=== PATIENT | female | born 1940 | race Caucasian/White ===

== ENCOUNTER 2016-06-08 11:01 | Inpatient (IN) | payer MEDICARE, OTHER ==
[~2016-06-08] VITALS: Ht 160 cm; Wt 78.0 kg
[~2016-06-08 11:01] MED LIST: ACET1TAB40 PO; AMLO-147 PO; ASPI-664 PO; CHOL2000 PO; DIAZ5TAB4 PO; EDOX30TA PO; GABA800T PO; IPRA4AER INHALATION; ISOS30TA18 PO; METO-448 PO; NITR0.4T6 SL; PANT40TA4 PO; POTA20TA96 PO; QUET100T32 PO; ZOLP10TA5 PO
--- NOTE | 2016-06-08 11:31 | ERA ---
ER Documentation Chief Complaint Date/Time DATE: 06/08/16 TIME: 11:30 Chief Complaint fever yesterday and sob today HPI The patient is a 76-year-old female, presenting to the ER because of fever yesterday, shortness of breath today. She had the flu last week. Her O2 sat today was 82-83% on 3-1/2 liter. She does not have any chills, nasal congestion. She has chronic cough, denies neck pain, chest pain, diaphoresis, abdominal pain, vomiting, dysuria, diarrhea. She smokes a few cigarettes a day , uses 3-1/2 L nasal cannula continuously Past medical history: Hypertension, diabetes mellitus, anemia, hypothyroidism, depression, dementia, COPD, psoriasis, dyslipidemia, GERD Past surgical history: Cholecystectomy, appendectomy, thyroidectomy ROS All systems reviewed and are negative except as per history of present illness. Medications Home Meds Reported Medications Pregabalin* (Lyrica*) 75 Mg Capsule, 75 MG PO DAILY, CAP 06/08/16 Ibuprofen* (Motrin*) 600 Mg Tab, 600 MG PO TID, TAB 06/08/16 Levothyroxine Sodium* (Levoxyl*) 125 Mcg Tablet, 125 MCG PO BEFORE BREAKFAST, # 30 TAB 06/08/16 Cholecalciferol* (Vitamin D3*) 2,000 Unit Cap, 2000 UNIT PO DAILY, CAP 12/09/15 Edoxaban Tosylate (Savaysa) 30 Mg Tablet, 30 MG PO DAILY, TAB 12/09/15 Albuterol/Ipratropium* (Combivent Respimat*) 20-100 Mcg/Inh - 4 Gm Aer.w.adap, 1 PUFF INHALATION QID, #1 INHALER 12/09/15 Amlodipine Besylate* (Amlodipine Besylate*) 10 Mg Tablet, 10 MG PO DAILY, TAB 11/19/14 Diazepam* (Diazepam*) 5 Mg Tablet, 5 MG PO BID Y for INSOMNIA, TAB 11/19/14 Zolpidem Tartrate* (Zolpidem Tartrate*) 10 Mg Tablet, 10 MG PO HS Y for INSOMNIA , TAB 11/19/14 Quetiapine Fumarate* (Quetiapine Fumarate*) 100 Mg Tablet, 100 MG PO HS, TAB 11/19/14 Metoprolol Tartrate* (Lopressor*) 25 Mg Tab, 25 MG PO BID, TAB 11/19/14 Pantoprazole* (Pantoprazole*) 40 Mg Tablet.dr, 40 MG PO AC BREAKFAST, TAB 11/19/14 Nitroglycerin* (Nitroglycerin* SL) 0.4 Mg Tab.subl, 0.4 MG SL Q5MIN Y for CHEST PAIN, BOTTLE 11/19/14 Isosorbide Dinitrate* (Isosorbide Dinitrate*) 30 Mg Tablet, 30 MG PO DAILY, TAB 08/16/14 Acetaminophen-Codeine* (Acetaminophen-Cod #3*) 300-30 Mg Tab, 1 TAB PO Q8 Y for PAIN, TAB 06/24/14 Gabapentin* (Neurontin*) 800 Mg Tablet, 800 MG PO QID, TAB 06/24/14 Aspirin* (Aspirin* (EC)) 81 Mg Tablet.dr, 81 MG PO DAILY, TAB 06/24/14 Discontinued Reported Medications Potassium Chloride* (Potassium Chloride*) 20 Meq Tablet.er, 20 MEQ PO BID, TAB.SA 11/19/14 Allergies Allergies: Coded Allergies: Iodinated Contrast Media - Oral and (Verified Allergy, Mild, 06/08/16) PMhx/Soc History of Surgery: Yes (Cholecyatectomy, appendectomy, thyroid surgery) Anesthesia Reaction: No Hx Neurological Disorder: No Hx Respiratory Disorders: Yes (COPD, asthma) Hx Cardiac Disorders: Yes (HTN) Hx Psychiatric Problems: No Hx Miscellaneous Medical Probl: Yes (insomia) Hx Alcohol Use: No Hx Substance Use: No Hx Tobacco Use: Yes Physical Exam Vitals Vital Signs Date Time Temp Pulse Resp B/P Pulse Ox O2 Delivery O2 Flow Rate FiO2 06/08/16 14:50 99.6 91 17 112/71 95 Nasal Cannula 2.0 06/08/16 12:54 101.3 103 29 132/73 94 Nasal Cannula 2.0 06/08/16 11:45 Nasal Cannula 06/08/16 11:42 Nasal Cannula 2 06/08/16 11:07 101.7 115 24 136/80 87 Physical Exam Const: No acute distress. Head: Atraumatic. Eyes: Normal Conjunctiva. ENT: Normal External Ears, Nose and Mouth. Neck: Full range of motion. No meningismus. Resp: Decreased breath sounds and bilateral expiratory wheezes, tachypnea Cardio: Regular rate and rhythm, no murmurs. Abd: Soft, non distended, normal bowel sounds, non tender. Skin: No petechiae or rashes. Back: No midline or flank tenderness. Ext: No cyanosis, or edema. Neur: Awake and alert. No focal deficit Psych: Normal Mood and Affect. Result Diagram: 06/08/16 1150 06/08/16 1150 Results 24 hrs Laboratory Tests Test 06/08/16 11:46 06/08/16 11:50 06/08/16 12:50 06/08/16 14:20 Arterial Blood HCO3 24.5mmol/L Arterial Blood Base Excess 1.1mmol/L Arterial Blood Oxygen Saturation 87.5mmHG Vikram Test ACCEPTAB Arterial Blood Gas Puncture Site Right Radial Arterial Blood Carboxyhemoglobin 0.6% Arterial Blood Date Drawn 06/08/2016 12:08:00 PM Arterial Blood Methemoglobin 0.1% Arterial Blood pCO2 (Temp correct) 35.3mmhg Arterial Blood pH (Temp corrected) 7.459 Arterial Blood pO2 (Temp corrected) 50.5mmHG Blood Gas A-a O2 Differential 143.6mmHg Blood Gas Actual Respiration Rate 26 Blood Gas Critical Value Read Back DR. ZECHARIAH CARVER Blood Gas Modality NASAL CANNULA Blood Gas Notified Time 06/08/2016 12:22:00 PM Blood Gas Notified Whom SOBEIDA VÁZQUEZ Blood Gas Specimen Source Blood arterial Blood Gas Temperature 37.0C FiO2 33.0% Oxyhemoglobin Percent 86.9% Total Hemoglobin 14.0g/dl Activated Partial Thromboplast Time 34.8Sec Alanine Aminotransferase (ALT/SGPT) 44IU/L Albumin 4.5g/dl Albumin/Globulin Ratio 0.90 Alkaline Phosphatase 81IU/L Anion Gap 21 Aspartate Amino Transf (AST/SGOT) 31IU/L Basophils # 0.010^3/ul Basophils % 0.0% Blood Urea Nitrogen 25mg/dl Calcium Level 8.3mg/dl Carbon Dioxide Level 28mmol/L Chloride Level 99mmol/L Creatinine 1.25mg/dl Direct Bilirubin 0.00mg/dl Eosinophils # 0.110^3/ul Eosinophils % 0.6% Globulin 5.00g/dl Glucose Level 148mg/dl Hematocrit 40.5% Hemoglobin 13.8g/dl INR International Normalized Ratio 1.16 Indirect Bilirubin 0.6mg/dl Lymphocytes # 1.610^3/ul Lymphocytes % 9.1% Mean Corpuscular Hemoglobin 32.8pg Mean Corpuscular Hemoglobin Concent 34.1g/dl Mean Corpuscular Volume 96.2fl Mean Platelet Volume 9.8fl Monocytes # 0.310^3/ul Monocytes % 1.8% Neutrophils # 15.610^3/ul Neutrophils % 88.5% Nucleated Red Blood Cells # 0.010^3/ul Nucleated Red Blood Cells % 0.0/100WBC Platelet Count 51986^3/UL Potassium Level 4.1mmol/L Prothrombin Time 14.8Sec Prothrombin Time Ratio 1.2 Red Blood Count 4.2110^6/ul Red Cell Distribution Width 13.4% Sodium Level 144mmol/L Total Bilirubin 0.6mg/dl Total Protein 9.5g/dl Troponin I < 0.012ng/ml White Blood Count 17.710^3/ul Lactic Acid Level 1.6mmol/L 2.1mmol/L Current Medications Medications (Trade) Dose Ordered Sig/Alonso Route PRN Reason Start Time Stop Time Status Last Admin Dose Admin Acetaminophen (Tylenol Tab) 650 mg ONCE STAT PO 06/08/16 11:37 06/08/16 11:40 DC 06/08/16 11:50 Levalbuterol (Xopenex Neb) 1.25 mg ONCE ONCE HHN 06/08/16 12:00 06/08/16 12:01 DC 06/08/16 11:44 Ipratropium [place] (Atrovent 0.02% (Neb)) 0.5 mg ONCE ONCE HHN 06/08/16 12:00 06/08/16 12:01 DC 06/08/16 11:44 Methylprednisolone Sodium Succinate (Solu-Medrol) 125 mg ONCE ONCE IV 06/08/16 12:00 06/08/16 12:01 DC 06/08/16 11:50 Ibuprofen 600 mg 600 mg ONCE ONCE PO 06/08/16 13:00 06/08/16 13:01 DC 06/08/16 13:09 Vancomycin HCl 1.25 gm/Sodium Chloride 250 ml @ 125 mls/hr ONCE ONCE IVPB 06/08/16 13:00 06/08/16 14:59 DC 06/08/16 14:04 Cefepime HCl (Maxipime 1gm/50 ml (Pmx)) 50 ml @ 100 mls/hr ONCE ONCE IVPB 06/08/16 13:00 06/08/16 13:29 DC 06/08/16 13:09 Acetaminophen/ Codeine Phosphate (Tylenol No.3) 1 tab Q8 PRN PO PAIN 06/08/16 16:00 Amlodipine Besylate (Norvasc) 10 mg DAILY PO 06/09/16 09:00 Aspirin (Halfprin) 81 mg DAILY PO 06/09/16 09:00 Cholecalciferol (Vitamin D) 2,000 unit DAILY PO 06/09/16 09:00 Diazepam (Valium) 5 mg BID PRN PO INSOMNIA 06/08/16 16:00 Gabapentin (Neurontin) 800 mg QID PO 06/08/16 17:00 Isosorbide Dinitrate (Isordil) 30 mg DAILY PO 06/09/16 09:00 UNV Levothyroxine Sodium (Synthroid) 125 mcg BEFORE BREAKFAST PO 06/09/16 07:00 UNV Metoprolol Tartrate (Lopressor) 25 mg BID PO 06/08/16 21:00 UNV Nitroglycerin (Nitroglycerin (Sl Tab) 0.4 Mg) 0.4 tab [id number] PRN SL CHEST PAIN 06/08/16 16:00 Pantoprazole (Protonix Tab) 40 mg AC BREAKFAST PO 06/09/16 07:00 UNV Pregabalin (Lyrica) 75 mg DAILY PO 06/09/16 09:00 UNV Quetiapine Fumarate (Seroquel) 100 mg HS PO 06/08/16 21:00 UNV Zolpidem Tartrate 10 mg 10 mg HS PRN PO INSOMNIA 06/08/16 16:00 Sodium Chloride (NS) 1,000 ml @ 50 mls/hr Q20H IV 06/08/16 15:38 IV Flush (NS 3 ml) 3 ml PER PROTOCOL IV 06/08/16 16:00 Ondansetron HCl (Zofran Inj) 4 mg Q6H PRN IV NAUSEA AND/OR VOMITING 06/08/16 16:00 Docusate Sodium (Colace) 100 mg Q12H PRN PO CONSTIPATION 06/08/16 16:00 Magnesium Hydroxide (Milk Of Mag) 30 ml DAILY PRN PO CONSTIPATION 06/08/16 16:00 Pantoprazole (Protonix Iv) 40 mg DAILY@06 IV 06/09/16 06:00 UNV Enoxaparin Sodium 40 mg 40 mg DAILY SC 06/09/16 09:00 UNV Piperacillin Sod/ Tazobactam Sod (Zosyn 3.375gm/ 100 ml (Pmx)) 100 ml @ 200 mls/hr TID IVPB 06/08/16 21:00 UNV Albuterol/ Ipratropium (Duoneb) 3 ml Q6H RESP THERAPY HHN 06/08/16 18:00 Procedures/[place] [id number] Radiology Main Line: [phone] DIAGNOSTIC IMAGING REPORT Patient: WYATT CROW : 1940 Age: 76 Sex: F MR #: [id number] DOS: 06/08/16 1137 Ordering MD: ZECHARIAH CARVER MD Location: E/R Room/Bed: PROCEDURE: XR Chest. CLINICAL INDICATION: Sepsis TECHNIQUE: Chest AP portable. COMPARISON: 12/09/2015 FINDINGS: The mediastinal structures are unremarkable. There is calcification of the thoracic aorta (consistent with atherosclerosis). The heart is normal in size and configuration. The pulmonary vascularity is normal. There is a L U L patchy consolidation. The pleural spaces are unremarkable. There are senescent changes of the axial skeleton. IMPRESSION: L U L patchy consolidation. RPTAT: HGDB .Hunter Rao MD, Date Time Electronically viewed and signed by .Hunter Rao MD, on 06/08/2016 12:43 .B/ CC: ZECHARIAH CARVER MD MEDICAL MAKING DECISION: The patient is 76-year-old female, presenting with acute respiratory failure, acute pneumonia. She was treated with Tylenol and Motrin for fever Xopenex 1.25 mg and Ativan 0.5 mg nebulizer and Solu-Medrol 125 mg IV for wheezing, vancomycin IV, Maxipime IV for pneumonia with good response. ABG on 33%, pH 7.45, PCO2 35, PO2 50. The differential diagnoses considered include but are not limited to asthma, COPD, pneumonia, pulmonary embolus, pleural effusion, congestive heart failure. Critical Care: Time: 35 minutes excluding all billable procedures. Treatments/Evaluations: Close monitoring and treatment of unstable vital signs, cardiorespiratory, and neurologic status, while maintaining tight balance of fluid, respiratory, and cardiac interventions. Departure Diagnosis: Primary Impression: Acute respiratory failure with hypoxemia Additional Impression: Pneumonia Condition: Stable Comments I discussed the findings with the patient. I discussed the patient with his physician Dr. Waters who was on-call for her physician Dr. Camargo who was made aware of the lab, the treatment, the patient condition. The patient is admitted to telemetry at 1:10 PM ZECHARIAH CARVER MD Jun 08, 2016 11:31
[2016-06-08] MEDS ORDERED: ACETAMINOPHEN 325 MG TAB PO STA (11:37)
[2016-06-08] MEDS ORDERED: METHYLPREDNISOLONE 125 MG INJ IV ONE (12:00)
[2016-06-08] MEDS ORDERED: IPRATROPIUM (NEB) 0.5 MG/2.5 ML AMP HHN ONE (12:00)
[2016-06-08] MEDS ORDERED: LEVALBUTEROL (NEB) 1.25 MG/0.5 ML AMP HHN ONE (12:00)
[2016-06-08 12:19] LABS: EOSINOPHILS # 0.1 10^3/ul (0.0-0.5); EOSINOPHILS % 0.6 % (0.0-7.0); HEMATOCRIT 40.5 % (37.0-47.0); HEMOGLOBIN 13.8 g/dl (12.0-16.0); LYMPHOCYTES # 1.6 10^3/ul (0.8-2.9); LYMPHOCYTES % 9.1 % (15.0-51.0); MEAN CORPUSCULAR HEMOGLOBIN 32.8 pg (29.0-33.0); MEAN CORPUSCULAR HGB CONC 34.1 g/dl (32.0-37.0); MEAN CORPUSCULAR VOLUME 96.2 fl (82.0-101.0); MEAN PLATELET VOLUME 9.8 fl (7.4-10.4); MONOCYTE # 0.3 10^3/ul (0.3-0.9); MONOCYTES % 1.8 % (0.0-11.0); NEUTROPHIL # 15.6 10^3/ul (1.6-7.5); NEUTROPHILS % 88.5 % (39.0-77.0); PLATELET COUNT 278 10^3/UL (140-440); RED BLOOD COUNT 4.21 10^6/ul (4.20-5.40); RED CELL DISTRIBUTION WIDTH 13.4 % (11.5-14.5); UNCORRECTED WBC 17.7 10^3/ul (4.8-10.8); WHITE BLOOD COUNT 17.7 10^3/ul (4.8-10.8)
[2016-06-08 12:23] LABS: CONDITION 1; LH ANALYZER COMMENTS 1; SUSPECT 1
[2016-06-08 12:24] LABS: AADO2 Arterial 143.6 mmHg (7.0-24.0); Allen Test ACCEPTAB; Arterial Base Excess 1.1 mmol/L (-3.0-3); Arterial COHb 0.6 % (0.0-3.0); Arterial Fraction of Oxyhgb 86.9 % (93.0-99.0); Arterial HCO3 24.5 mmol/L (22.0-26.0); Arterial MetHb 0.1 % (0.0-1.5); MODE NASAL CANNULA
[2016-06-08 12:36] LABS: INR 1.16; PROTIME 14.8 Sec (12.2-14.2); PT RATIO 1.2
[2016-06-08 12:37] LABS: PARTIAL THROMBOPLASTIN TIME 34.8 Sec (25.0-35.0)
[2016-06-08] MEDS ORDERED: LEVO125T71 PO (12:42)
[2016-06-08] MEDS ORDERED: LYR75 PO (12:43)
[2016-06-08] MEDS ORDERED: IBUP-1542 PO (12:43)
--- NOTE | 2016-06-08 12:43 | RADRPT ---
PROCEDURE: XR Chest. CLINICAL INDICATION: Sepsis TECHNIQUE: Chest AP portable. COMPARISON: 12/09/2015 FINDINGS: The mediastinal structures are unremarkable. There is calcification of the thoracic aorta (consiste nt with atherosclerosis). The heart is normal in size and configuration. The pulmonary vascularity i s normal. There is a L U L patchy consolidation. The pleural spaces are unremarkable. There are se nescent changes of the axial skeleton. IMPRESSION: L U L patchy consolidation. RPTAT: HGDB .Hunter Rao MD, MD Date Time Electronically viewed and signed by .Hunter Rao MD, on 06/08/2016 12:43 .B/
[2016-06-08] MEDS ORDERED: IBUPROFEN 600 MG TAB PO ONE (13:00)
[2016-06-08] MEDS ORDERED: CEFEPIME 1GM/50 ML (PMX) 50 ML IVPB ONE (13:00)
[2016-06-08] MEDS ORDERED: VANCOMYCIN 1.25 GM in SOD CHLORIDE 0.9% 250 ML IVPB ONE (13:00)
[2016-06-08 13:20] LABS: ALBUMIN 4.5 g/dl (3.3-4.9); CHLORIDE 99 mmol/L (97-110); POTASSIUM 4.1 mmol/L (3.5-5.1); SODIUM 144 mmol/L (135-144)
[2016-06-08 13:22] LABS: CREATININE 1.25 mg/dl (0.44-1.00)
[2016-06-08 13:23] LABS: ALANINE AMINOTRANSFERASE 44 IU/L (13-69); ALKALINE PHOSPHATASE 81 IU/L (42-121); ANION GAP 21 (8-16); ASPARTATE AMINO TRANSFERASE 31 IU/L (15-46); BILIRUBIN,INDIRECT 0.6 mg/dl (0-1.1); BILIRUBIN,TOTAL 0.6 mg/dl (0.2-1.3); BLOOD UREA NITROGEN 25 mg/dl (7-20); CALCIUM 8.3 mg/dl (8.4-10.2); CARBON DIOXIDE 28 mmol/L (21-31); GLUCOSE 148 mg/dl (70-220); TOTAL PROTEIN 9.5 g/dl (6.1-8.1)
[2016-06-08 13:36] LABS: TROPONIN-I < 0.012 ng/ml (0.00-0.12)
--- NOTE | 2016-06-08 15:28 | QN ---
Documentation Comment [id number] PEYMAN MARINO MD Jun 08, 2016 15:28
[2016-06-08] MEDS ORDERED: ONDANSETRON 4 MG INJ IV PRN (16:00)
[2016-06-08] MEDS ORDERED: DOCUSATE SODIUM 100 MG CAP PO PRN (16:00)
[2016-06-08] MEDS ORDERED: NACL 0.9% 3 ML SYG IV SCH (16:00)
[2016-06-08] MEDS ORDERED: NITROGLYCERIN (SL) 0.4 MG TAB SL PRN (16:00)
[2016-06-08] MEDS ORDERED: MAGNESIUM HYDROXIDE 30ML CUP PO PRN (16:00)
[2016-06-08] MEDS ORDERED: ACETAMINOPHEN/CODEINE #3 TAB PO PRN (16:00)
[2016-06-08] MEDS: SOD CHLORIDE 0.9% 1,000 ML IV SCH (17:07)
[2016-06-08] MEDS: GABAPENTIN 400 MG CAP PO SCH ×2 (17:08→21:06)
[2016-06-08] MEDS: ALBUTEROL/IPRATROPIUM (NEB) 3 ML AMP HHN SCH ×2 (18:13→19:58)
[2016-06-08 18:44] VITALS: TEMP 97.9
[2016-06-08 19:33] VITALS: Ht 160 cm; Wt 78.0 kg
[2016-06-08 20:11] VITALS: PULSE 72
[2016-06-08 20:21] VITALS: BP 124/70; RESP 17
[2016-06-08] MEDS: QUETIAPINE 100 MG TAB PO SCH (21:06)
[2016-06-08] MEDS: PIPER-TAZO 3.375 GM IV (PMX) 100 ML IVPB SCH (21:07)
[2016-06-08] MEDS: METOPROLOL 25 MG TAB PO SCH (21:07)
[2016-06-08] MEDS: ZOLPIDEM 5 MG TAB PO PRN (22:09)
[2016-06-08] MEDS: DIAZEPAM 5 MG TAB PO PRN (22:50)
[2016-06-08 23:20] VITALS: BP 138/75; RESP 17
--- NOTE | 2016-06-08 23:28 | CONS ---
Date/Time of Note Date/Time of Note DATE: 06/08/16 TIME: 23:28 Assessment/Plan Assessment/Plan Chief Complaint/Hosp Course IMPRESSION: LEUKOCYTOSIS PROBABLY REACTIVE REVIEW SMEAR MONITOR BLOOD COUNT CLOSELY ATB-PER PMD ANEMIA COMPENSATED AT PRESENT OBSERVE CLOSELY NO NEEDS FOR TRANSFUSION community-acquired pneumonia. Bronchocentric consolidation, centrilobular nodules, and tree in bud nodularity in the seen throughout the left lung consistent with multifocal bronchiolitis/ bronchopneumonia. There is an associated trace parapneumonic effusion with associated atelectasis ON CT CHEST 7.16 Diabetes mellitus Problems: Consultation Date/Type/Reason Admit Date/Time Jun 08, 2016 at 19:14 Date of Consultation: Jun 08, 2016 Type of Consultation: HEMEONC Reason for Consultation LEUKOCYTOSIS HX ANEMIA Referring Provider: PEYMAN MARINO Hx of Present Illness Patient is a 76-year-old female with a history of UTI, sepsis, pneumonia, diabetes, anemia, history of cholecystectomy, and history of appendectomy. 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 Presented with shortness of breath, fever, cough, and is being admitted for further management. I WAS ASKED TO PROVIDE HEMEONC CONSULT RE LEUKOCYTOSIS AND ANEMIA PAST MEDICAL HISTORY: Positive for COPD, hypertension, diabetes mellitus, abdominal surgery. ALLERGY HISTORY: CONTRAST MEDIA. SOCIAL HISTORY: Negative. Smokes 2 cigarettes a day. MEDICATIONS AT HOME: 1. Albuterol. 2. Combivent. 3. Amlodipine. 4. Aspirin. 5. Vitamin D3. 6. Diazepam. 7. Lovenox. 8. Gabapentin. 9. Ibuprofen. 10. Isosorbide. 11. Levothyroxine. 12. Metoprolol. 13. Nitroglycerin. 14. Protonix. 15. Lyrica. 16. Seroquel. 17. Ambien. REVIEW OF SYSTEMS: HEENT: Unremarkable. RESPIRATORY: Cough, shortness of breath, , labored breathing. ABDOMEN: No distress. EXTREMITIES: Swelling. CENTRAL NERVOUS SYSTEM: Unremarkable. Past Surgical History Past Surgical Hx: appendectomy, cholecystectomy, other Social History Smoking Status: Former smoker Exam/Review of Systems Vital Signs Vitals Vital Signs Date Time Temp Pulse Resp B/P Pulse Ox O2 Delivery O2 Flow Rate FiO2 06/08/16 23:20 98.0 64 17 138/75 93 06/08/16 20:30 5.0 40 06/08/16 19:45 Nasal Cannula Exam PHYSICAL EXAMINATION: GENERAL: The patient is awake, alert. HEAD: Atraumatic, normocephalic. Pupils are equal, reactive to light. NECK: Supple. No JVD. LUNGS: Clear anteriorly with rhonchi in both bases. CARDIOVASCULAR: S1, S2 normal. ABDOMEN: Soft, obese, bowel sounds present, no palpable mass or hepatosplenomegaly. No guarding, rebound tenderness. EXTREMITIES: There is no cyanosis, clubbing, or edema. CENTRAL NERVOUS SYSTEM: The patient is awake, alert, moving both upper and lower extremities. Results Result Diagram: 06/08/16 1150 06/08/16 1150 Results 24 hrs Laboratory Tests Test 06/08/16 11:46 06/08/16 11:50 06/08/16 12:50 06/08/16 14:20 Arterial Blood HCO3 24.5 Arterial Blood Base Excess 1.1 Arterial Blood Oxygen Saturation 87.5 L Vikram Test ACCEPTAB Arterial Blood Gas Puncture Site Right Radial Arterial Blood Carboxyhemoglobin 0.6 Arterial Blood Date Drawn 06/08/2016 12:08:00 PM Arterial Blood Methemoglobin 0.1 Arterial Blood pCO2 (Temp correct) 35.3 Arterial Blood pH (Temp corrected) 7.459 H Arterial Blood pO2 (Temp corrected) 50.5 *L Blood Gas A-a O2 Differential 143.6 H Blood Gas Actual Respiration Rate 26 Blood Gas Critical Value Read Back DR. ZECHARIAH CARVER Blood Gas Modality NASAL CANNULA Blood Gas Notified Time 06/08/2016 12:22:00 PM Blood Gas Notified Whom SOBEIDA VÁZQUEZ Blood Gas Specimen Source Blood arterial Blood Gas Temperature 37.0 FiO2 33.0 Oxyhemoglobin Percent 86.9 L Total Hemoglobin 14.0 Activated Partial Thromboplast Time 34.8 Alanine Aminotransferase (ALT/SGPT) 44 Albumin 4.5 Albumin/Globulin Ratio 0.90 Alkaline Phosphatase 81 Anion Gap 21 H Aspartate Amino Transf (AST/SGOT) 31 Basophils # 0.0 Basophils % 0.0 Blood Urea Nitrogen 25 H Calcium Level 8.3 L Carbon Dioxide Level 28 Chloride Level 99 Creatinine 1.25 H Direct Bilirubin 0.00 Eosinophils # 0.1 Eosinophils % 0.6 Globulin 5.00 H Glucose Level 148 Hematocrit 40.5 # Hemoglobin 13.8 # INR International Normalized Ratio 1.16 Indirect Bilirubin 0.6 Lymphocytes # 1.6 Lymphocytes % 9.1 L Mean Corpuscular Hemoglobin 32.8 Mean Corpuscular Hemoglobin Concent 34.1 Mean Corpuscular Volume 96.2 Mean Platelet Volume 9.8 Monocytes # 0.3 Monocytes % 1.8 Neutrophils # 15.6 H Neutrophils % 88.5 H Nucleated Red Blood Cells # 0.0 Nucleated Red Blood Cells % 0.0 Platelet Count 278 Potassium Level 4.1 Prothrombin Time 14.8 H Prothrombin Time Ratio 1.2 Red Blood Count 4.21 # Red Cell Distribution Width 13.4 Sodium Level 144 Total Bilirubin 0.6 Total Protein 9.5 H Troponin I < 0.012 White Blood Count 17.7 #H Lactic Acid Level 1.6 2.1 Test 06/08/16 19:55 Lactic Acid Level 2.2 Medications Medications Current Medications Acetaminophen/ Codeine Phosphate (Tylenol No.3) 1 tab Q8 PRN PO PAIN; Start at 16:00 Amlodipine Besylate (Norvasc) 10 mg DAILY PO ; Start 06/09/16 at 09:00 Aspirin (Halfprin) 81 mg DAILY PO ; Start 06/09/16 at 09:00 Cholecalciferol (Vitamin D) 2,000 unit DAILY PO ; Start 06/09/16 at 09:00 Diazepam (Valium) 5 mg BID PRN PO INSOMNIA Last administered on 06/08/16 22:50 ; Admin Dose 5 MG; Start 06/08/16 at 16:00 Gabapentin (Neurontin) 800 mg QID PO Last administered on 06/08/16 21:06; Admin Dose 800 MG; Start 06/08/16 at 17:00 Isosorbide Mononitrate (Imdur) 30 mg DAILY PO ; Start 06/09/16 at 09:00 Metoprolol Tartrate (Lopressor) 25 mg BID PO Last administered on 06/08/16 21: 07; Admin Dose 25 MG; Start 06/08/16 at 21:00 Nitroglycerin (Nitroglycerin (Sl Tab) 0.4 Mg) 0.4 tab [id number] PRN SL CHEST PAIN; Start 06/08/16 at 16:00 Pregabalin (Lyrica) 75 mg DAILY PO ; Start 06/09/16 at 09:00 Quetiapine Fumarate (Seroquel) 100 mg HS PO Last administered on 06/08/16 21: 06; Admin Dose 100 MG; Start 06/08/16 at 21:00 Zolpidem Tartrate 10 mg 10 mg HS PRN PO INSOMNIA Last administered on 22:09; Admin Dose 10 MG; Start 06/08/16 at 16:00 Sodium Chloride (NS) 1,000 ml @ 50 mls/hr Q20H IV Last administered on 17:07; Admin Dose 50 MLS/HR; Start 06/08/16 at 15:38 Ondansetron HCl (Zofran Inj) 4 mg Q6H PRN IV NAUSEA AND/OR VOMITING; Start at 16:00 Docusate Sodium (Colace) 100 mg Q12H PRN PO CONSTIPATION; Start 06/08/16 at 16: 00 Magnesium Hydroxide (Milk Of Mag) 30 ml DAILY PRN PO CONSTIPATION; Start at 16:00 Enoxaparin Sodium 40 mg 40 mg DAILY SC ; Start 06/09/16 at 09:00 Piperacillin Sod/ Tazobactam Sod (Zosyn 3.375gm/ 100 ml (Pmx)) 100 ml @ 200 mls /hr Q8 IVPB Last administered on 06/08/16 21:07; Admin Dose 200 MLS/HR; Start 06/08/16 at 22:00 Influenza Virus Vaccine (Fluzone) 0.5 ml ONCE ONCE IM* ; Start 06/09/16 at 09:00 ; Stop 06/09/16 at 09:01 Procedures Procedures Chest x-ray: Left upper lobe patchy consolidation. NARINDER WALTERS MD Jun 08, 2016 23:28
[2016-06-09] VITALS (11 sets, daily range): BP systolic 105–138; BP diastolic 55–73; PULSE 56–68; RESP 17–20
[2016-06-09] MEDS: ALBUTEROL/IPRATROPIUM (NEB) 3 ML AMP HHN SCH ×4 (02:13→19:55)
[2016-06-09] MEDS ORDERED: PANTOPRAZOLE 40 MG INJ IV SCH (06:00)
[2016-06-09] MEDS: PIPER-TAZO 3.375 GM IV (PMX) 100 ML IVPB SCH ×3 (06:14→20:49)
[2016-06-09] MEDS: LEVOTHYROXINE 125 MCG TAB PO SCH (06:14)
--- NOTE | 2016-06-09 06:27 | HP ---
DATE OF ADMISSION: 06/08/2016 HISTORY OF PRESENT ILLNESS: Patient is a 76-year-old female with a history of UTI, sepsis, pneumonia, diabetes, anemia, history of cholecystectomy, and history of appendectomy. 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 Presented with shortness of breath, fever, cough, and is being admitted for further management. PAST MEDICAL HISTORY: Positive for COPD, hypertension, diabetes mellitus, abdominal surgery. ALLERGY HISTORY: CONTRAST MEDIA. SOCIAL HISTORY: Negative. Smokes 2 cigarettes a day. MEDICATIONS AT HOME: 1. Albuterol. 2. Combivent. 3. Amlodipine. 4. Aspirin. 5. Vitamin D3. 6. Diazepam. 7. Lovenox. 8. Gabapentin. 9. Ibuprofen. 10. Isosorbide. 11. Levothyroxine. 12. Metoprolol. 13. Nitroglycerin. 14. Protonix. 15. Lyrica. 16. Seroquel. 17. Ambien. REVIEW OF SYSTEMS: HEENT: Unremarkable. RESPIRATORY: Cough, shortness of breath, , labored breathing. ABDOMEN: No distress. EXTREMITIES: Swelling. CENTRAL NERVOUS SYSTEM: Unremarkable. PHYSICAL EXAMINATION: GENERAL: The patient is awake, alert. VITAL SIGNS: Pulse 65, blood pressure 130/76. HEAD: Atraumatic, normocephalic. Pupils are equal, reactive to light. NECK: Supple. No JVD. LUNGS: Clear anteriorly with rhonchi in both bases. CARDIOVASCULAR: S1, S2 normal. ABDOMEN: Soft, obese, bowel sounds present, no palpable mass or hepatosplenomegaly. No guarding, rebound tenderness. EXTREMITIES: There is no cyanosis, clubbing, or edema. CENTRAL NERVOUS SYSTEM: The patient is awake, alert, moving both upper and lower extremities. LABORATORY DATA: WBC 17.7, hematocrit 40.1, platelet count of 278. Sodium ____ , potassium 4.1, BUN 25, creatinine 1.25. Globulin 5, albumin is 4.5. Chest x-ray: Left upper lobe patchy consolidation. IMPRESSION: 1. Possible community-acquired pneumonia. 2. ____ left lung in the past. 3. Diabetes mellitus ____. PLAN: Continue oxygen, bronchodilator and antibiotic. Continue home medication. Orders were done. Dictated By: PEYMAN MARINO MD BRENNAN Conf#: [id number] DID#: [id number]
[2016-06-09] MEDS: PANTOPRAZOLE (EC) 40 MG TAB PO SCH (06:47)
[2016-06-09] MEDS ORDERED: INFLUENZA VIRUS VACCINE 0.5 ML (DISPENSING) IM* ONE (09:00)
[2016-06-09] MEDS: ASPIRIN (EC) 81 MG TAB PO SCH (09:05)
[2016-06-09] MEDS: ISOSORBIDE MONONITRATE(SR)30 MG TAB PO SCH (09:06)
[2016-06-09] MEDS: METOPROLOL 25 MG TAB PO SCH ×2 (09:07→20:48)
[2016-06-09] MEDS: GABAPENTIN 400 MG CAP PO SCH ×4 (09:08→20:48)
[2016-06-09] MEDS: CHOLECALCIFEROL 2,000 UNIT CAP PO SCH (09:08)
[2016-06-09] MEDS: AMLODIPINE 10 MG TAB PO SCH (09:08)
[2016-06-09] MEDS: ENOXAPARIN 40 MG/0.4 ML SYG SC SCH (09:14)
[2016-06-09] MEDS: PREGABALIN 75 MG CAP PO SCH (09:21)
--- NOTE | 2016-06-09 11:30 | CONS ---
Date/Time of Note Date/Time of Note DATE: 06/09/16 TIME: 11:30 Assessment/Plan Assessment/Plan Chief Complaint/Hosp Course IMPRESSION: LEUKOCYTOSIS REACTIVE SMEAR- NEG MONITOR BLOOD COUNT CLOSELY ATB-PER PMD ANEMIA COMPENSATED AT PRESENT OBSERVE CLOSELY NO NEEDS FOR TRANSFUSION community-acquired pneumonia. Bronchocentric consolidation, centrilobular nodules, and tree in bud nodularity in the seen throughout the left lung consistent with multifocal bronchiolitis/ bronchopneumonia. There is an associated trace parapneumonic effusion with associated atelectasis ON CT CHEST 7.16 Diabetes mellitus Problems: Consultation Date/Type/Reason Admit Date/Time Jun 08, 2016 at 19:14 Initial Consult Date Exam/Review of Systems Vital Signs Vitals Vital Signs Date Time Temp Pulse Resp B/P Pulse Ox O2 Delivery O2 Flow Rate FiO2 06/09/16 09:40 4.0 06/09/16 08:58 40 06/09/16 08:58 70 20 Nasal Cannula 06/09/16 07:29 97.6 138/66 93 Intake and Output 06/08/16 06/08/16 06/09/16 15:00 23:00 07:00 Intake Total 100 ml 300 ml Balance 100 ml 300 ml Results Result Diagram: 06/08/16 1150 06/08/16 1150 Results 24 hrs Laboratory Tests Test 06/08/16 11:46 06/08/16 11:50 06/08/16 12:50 06/08/16 14:20 Arterial Blood HCO3 24.5 Arterial Blood Base Excess 1.1 Arterial Blood Oxygen Saturation 87.5 L Vikram Test ACCEPTAB Arterial Blood Gas Puncture Site Right Radial Arterial Blood Carboxyhemoglobin 0.6 Arterial Blood Date Drawn 06/08/2016 12:08:00 PM Arterial Blood Methemoglobin 0.1 Arterial Blood pCO2 (Temp correct) 35.3 Arterial Blood pH (Temp corrected) 7.459 H Arterial Blood pO2 (Temp corrected) 50.5 *L Blood Gas A-a O2 Differential 143.6 H Blood Gas Actual Respiration Rate 26 Blood Gas Critical Value Read Back DR. ZECHARIAH CARVER Blood Gas Modality NASAL CANNULA Blood Gas Notified Time 06/08/2016 12:22:00 PM Blood Gas Notified Whom SOBEIDA VÁZQUEZ Blood Gas Specimen Source Blood arterial Blood Gas Temperature 37.0 FiO2 33.0 Oxyhemoglobin Percent 86.9 L Total Hemoglobin 14.0 Activated Partial Thromboplast Time 34.8 Alanine Aminotransferase (ALT/SGPT) 44 Albumin 4.5 Albumin/Globulin Ratio 0.90 Alkaline Phosphatase 81 Anion Gap 21 H Aspartate Amino Transf (AST/SGOT) 31 Basophils # 0.0 Basophils % 0.0 Blood Urea Nitrogen 25 H Calcium Level 8.3 L Carbon Dioxide Level 28 Chloride Level 99 Creatinine 1.25 H Direct Bilirubin 0.00 Eosinophils # 0.1 Eosinophils % 0.6 Globulin 5.00 H Glucose Level 148 Hematocrit 40.5 # Hemoglobin 13.8 # INR International Normalized Ratio 1.16 Indirect Bilirubin 0.6 Lymphocytes # 1.6 Lymphocytes % 9.1 L Mean Corpuscular Hemoglobin 32.8 Mean Corpuscular Hemoglobin Concent 34.1 Mean Corpuscular Volume 96.2 Mean Platelet Volume 9.8 Monocytes # 0.3 Monocytes % 1.8 Neutrophils # 15.6 H Neutrophils % 88.5 H Nucleated Red Blood Cells # 0.0 Nucleated Red Blood Cells % 0.0 Platelet Count 278 Potassium Level 4.1 Prothrombin Time 14.8 H Prothrombin Time Ratio 1.2 Red Blood Count 4.21 # Red Cell Distribution Width 13.4 Sodium Level 144 Total Bilirubin 0.6 Total Protein 9.5 H Troponin I < 0.012 White Blood Count 17.7 #H Lactic Acid Level 1.6 2.1 Test 06/08/16 19:55 Lactic Acid Level 2.2 Medications Medications Current Medications Acetaminophen/ Codeine Phosphate (Tylenol No.3) 1 tab Q8 PRN PO PAIN; Start at 16:00 Amlodipine Besylate (Norvasc) 10 mg DAILY PO Last administered on 06/09/16 09: 08; Admin Dose 10 MG; Start 06/09/16 at 09:00 Aspirin (Halfprin) 81 mg DAILY PO Last administered on 06/09/16 09:05; Admin Dose 81 MG; Start 06/09/16 at 09:00 Cholecalciferol (Vitamin D) 2,000 unit DAILY PO Last administered on 06/09/16 09:08; Admin Dose 2,000 UNIT; Start 06/09/16 at 09:00 Diazepam (Valium) 5 mg BID PRN PO INSOMNIA Last administered on 06/08/16 22:50 ; Admin Dose 5 MG; Start 06/08/16 at 16:00 Gabapentin (Neurontin) 800 mg QID PO Last administered on 06/09/16 09:08; Admin Dose 800 MG; Start 06/08/16 at 17:00 Isosorbide Mononitrate (Imdur) 30 mg DAILY PO Last administered on 06/09/16 09 :06; Admin Dose 30 MG; Start 06/09/16 at 09:00 Metoprolol Tartrate (Lopressor) 25 mg BID PO Last administered on 06/09/16 09: 07; Admin Dose 25 MG; Start 06/08/16 at 21:00 Nitroglycerin (Nitroglycerin (Sl Tab) 0.4 Mg) 0.4 tab [id number] PRN SL CHEST PAIN; Start 06/08/16 at 16:00 Pregabalin (Lyrica) 75 mg DAILY PO Last administered on 06/09/16 09:21; Admin Dose 75 MG; Start 06/09/16 at 09:00 Quetiapine Fumarate (Seroquel) 100 mg HS PO Last administered on 06/08/16 21: 06; Admin Dose 100 MG; Start 06/08/16 at 21:00 Zolpidem Tartrate 10 mg 10 mg HS PRN PO INSOMNIA Last administered on 22:09; Admin Dose 10 MG; Start 06/08/16 at 16:00 Sodium Chloride (NS) 1,000 ml @ 50 mls/hr Q20H IV Last administered on 17:07; Admin Dose 50 MLS/HR; Start 06/08/16 at 15:38 Ondansetron HCl (Zofran Inj) 4 mg Q6H PRN IV NAUSEA AND/OR VOMITING; Start at 16:00 Docusate Sodium (Colace) 100 mg Q12H PRN PO CONSTIPATION; Start 06/08/16 at 16: 00 Magnesium Hydroxide (Milk Of Mag) 30 ml DAILY PRN PO CONSTIPATION; Start at 16:00 Enoxaparin Sodium 40 mg 40 mg DAILY SC Last administered on 06/09/16 09:14; Admin Dose 40 MG; Start 06/09/16 at 09:00 Piperacillin Sod/ Tazobactam Sod (Zosyn 3.375gm/ 100 ml (Pmx)) 100 ml @ 200 mls /hr Q8 IVPB Last administered on 06/09/16 06:14; Admin Dose 200 MLS/HR; Start 06/08/16 at 22:00 NARINDER WALTERS MD Jun 09, 2016 11:30
[2016-06-09] MEDS: SOD CHLORIDE 0.9% 1,000 ML IV SCH (11:38)
--- NOTE | 2016-06-09 13:10 | PN ---
Date/Time of Note Date/Time of Note DATE: 06/09/16 TIME: 13:09 Assessment/Plan VTE Prophylaxis VTE Prophylaxis Intervention: other Lines/Catheters [facility] Type [facility] Peripheral IV Urinary Cath still in place: No Assessment/Plan Chief Complaint/Hosp Course IMPRESSION: 1. Possible community-acquired pneumonia. 2. htn 3. Diabetes mellitus plan prer order. Problems: Subjective 24 Hr Interval Summary Respiratory: cough (+) Cardiovascular: no complaints Exam/Review of Systems Vital Signs Vitals Vital Signs Date Time Temp Pulse Resp B/P Pulse Ox O2 Delivery O2 Flow Rate FiO2 06/09/16 12:27 68 06/09/16 11:31 98.2 20 125/73 98 06/09/16 09:40 4.0 06/09/16 08:58 40 06/09/16 08:58 Nasal Cannula Intake and Output 06/08/16 06/08/16 06/09/16 15:00 23:00 07:00 Intake Total 100 ml 300 ml Balance 100 ml 300 ml Exam Neck: supple Respiratory: clear to auscultation Cardiovascular: regular rate and rhythm Extremities: edema, No clubbing Results Result Diagram: 06/08/16 1150 06/08/16 1150 Results 24 hrs Laboratory Tests Test 06/08/16 14:20 06/08/16 19:55 Lactic Acid Level 2.1 2.2 Medications Medications Current Medications Acetaminophen/ Codeine Phosphate (Tylenol No.3) 1 tab Q8 PRN PO PAIN; Start at 16:00 Amlodipine Besylate (Norvasc) 10 mg DAILY PO Last administered on 06/09/16 09: 08; Admin Dose 10 MG; Start 06/09/16 at 09:00 Aspirin (Halfprin) 81 mg DAILY PO Last administered on 06/09/16 09:05; Admin Dose 81 MG; Start 06/09/16 at 09:00 Cholecalciferol (Vitamin D) 2,000 unit DAILY PO Last administered on 06/09/16 09:08; Admin Dose 2,000 UNIT; Start 06/09/16 at 09:00 Diazepam (Valium) 5 mg BID PRN PO INSOMNIA Last administered on 06/08/16 22:50 ; Admin Dose 5 MG; Start 06/08/16 at 16:00 Gabapentin (Neurontin) 800 mg QID PO Last administered on 06/09/16 12:23; Admin Dose 800 MG; Start 06/08/16 at 17:00 Isosorbide Mononitrate (Imdur) 30 mg DAILY PO Last administered on 06/09/16 09 :06; Admin Dose 30 MG; Start 06/09/16 at 09:00 Metoprolol Tartrate (Lopressor) 25 mg BID PO Last administered on 06/09/16 09: 07; Admin Dose 25 MG; Start 06/08/16 at 21:00 Nitroglycerin (Nitroglycerin (Sl Tab) 0.4 Mg) 0.4 tab [id number] PRN SL CHEST PAIN; Start 06/08/16 at 16:00 Pregabalin (Lyrica) 75 mg DAILY PO Last administered on 06/09/16 09:21; Admin Dose 75 MG; Start 06/09/16 at 09:00 Quetiapine Fumarate (Seroquel) 100 mg HS PO Last administered on 06/08/16 21: 06; Admin Dose 100 MG; Start 06/08/16 at 21:00 Zolpidem Tartrate 10 mg 10 mg HS PRN PO INSOMNIA Last administered on 22:09; Admin Dose 10 MG; Start 06/08/16 at 16:00 Sodium Chloride (NS) 1,000 ml @ 50 mls/hr Q20H IV Last administered on 17:07; Admin Dose 50 MLS/HR; Start 06/08/16 at 15:38 Ondansetron HCl (Zofran Inj) 4 mg Q6H PRN IV NAUSEA AND/OR VOMITING; Start at 16:00 Docusate Sodium (Colace) 100 mg Q12H PRN PO CONSTIPATION; Start 06/08/16 at 16: 00 Magnesium Hydroxide (Milk Of Mag) 30 ml DAILY PRN PO CONSTIPATION; Start at 16:00 Enoxaparin Sodium 40 mg 40 mg DAILY SC Last administered on 06/09/16 09:14; Admin Dose 40 MG; Start 06/09/16 at 09:00 Piperacillin Sod/ Tazobactam Sod (Zosyn 3.375gm/ 100 ml (Pmx)) 100 ml @ 200 mls /hr Q8 IVPB Last administered on 06/09/16 13:06; Admin Dose 200 MLS/HR; Start 06/08/16 at 22:00 PEYMAN MARINO MD Jun 09, 2016 13:10
[2016-06-09] MEDS: QUETIAPINE 100 MG TAB PO SCH (20:48)
[2016-06-09] MEDS: ZOLPIDEM 5 MG TAB PO PRN (20:55)
[2016-06-09] MEDS: DIAZEPAM 5 MG TAB PO PRN (20:56)
[2016-06-10] VITALS (14 sets, daily range): BP systolic 136–167; BP diastolic 70–90; PULSE 64–78; RESP 16–20
[2016-06-10] MEDS: SOD CHLORIDE 0.9% 1,000 ML IV SCH (01:47)
[2016-06-10] MEDS: ALBUTEROL/IPRATROPIUM (NEB) 3 ML AMP HHN SCH ×5 (02:00→19:55)
[2016-06-10] MEDS: PANTOPRAZOLE (EC) 40 MG TAB PO SCH (06:04)
[2016-06-10] MEDS: PIPER-TAZO 3.375 GM IV (PMX) 100 ML IVPB SCH ×3 (06:04→21:56)
[2016-06-10] MEDS: LEVOTHYROXINE 125 MCG TAB PO SCH (06:07)
[2016-06-10 07:19] LABS: BASOPHILS % 0.3 % (0.0-2.0); EOSINOPHILS # 0.2 10^3/ul (0.0-0.5); EOSINOPHILS % 1.5 % (0.0-7.0); HEMATOCRIT 34.3 % (37.0-47.0); HEMOGLOBIN 11.4 g/dl (12.0-16.0); LYMPHOCYTES % 18.8 % (15.0-51.0); MEAN CORPUSCULAR HEMOGLOBIN 32.8 pg (29.0-33.0); MEAN CORPUSCULAR HGB CONC 33.4 g/dl (32.0-37.0); MEAN CORPUSCULAR VOLUME 98.2 fl (82.0-101.0); MEAN PLATELET VOLUME 9.3 fl (7.4-10.4); MONOCYTE # 0.5 10^3/ul (0.3-0.9); MONOCYTES % 4.7 % (0.0-11.0); NEUTROPHIL # 8.1 10^3/ul (1.6-7.5); NEUTROPHILS % 74.7 % (39.0-77.0); PLATELET COUNT 233 10^3/UL (140-440); RED BLOOD COUNT 3.49 10^6/ul (4.20-5.40); RED CELL DISTRIBUTION WIDTH 13.4 % (11.5-14.5); UNCORRECTED WBC 10.9 10^3/ul (4.8-10.8); WHITE BLOOD COUNT 10.9 10^3/ul (4.8-10.8)
[2016-06-10 07:23] LABS: POTASSIUM 3.3 mmol/L (3.5-5.1)
[2016-06-10 07:26] LABS: CALCIUM 7.6 mg/dl (8.4-10.2); CREATININE 0.93 mg/dl (0.44-1.00)
[2016-06-10 07:31] LABS: CONDITION 1
[2016-06-10] MEDS: ASPIRIN (EC) 81 MG TAB PO SCH (08:51)
[2016-06-10] MEDS: ISOSORBIDE MONONITRATE(SR)30 MG TAB PO SCH (08:51)
[2016-06-10] MEDS: METOPROLOL 25 MG TAB PO SCH ×2 (08:52→20:07)
[2016-06-10] MEDS: GABAPENTIN 400 MG CAP PO SCH ×4 (08:52→20:07)
[2016-06-10] MEDS: AMLODIPINE 10 MG TAB PO SCH (08:52)
[2016-06-10] MEDS: CHOLECALCIFEROL 2,000 UNIT CAP PO SCH (08:53)
[2016-06-10] MEDS: PREGABALIN 75 MG CAP PO SCH (08:55)
[2016-06-10] MEDS: ENOXAPARIN 40 MG/0.4 ML SYG SC SCH (08:57)
--- NOTE | 2016-06-10 14:01 | PN ---
Date/Time of Note Date/Time of Note DATE: 06/10/16 TIME: 14:00 Assessment/Plan VTE Prophylaxis VTE Prophylaxis Intervention: other Lines/Catheters IV Catheter Type (from [facility]): Peripheral IV Urinary Cath still in place: No Assessment/Plan Chief Complaint/Hosp Course IMPRESSION: 1. Possible community-acquired pneumonia. 2. htn 3. Diabetes mellitus plan per order xr chest Problems: Subjective 24 Hr Interval Summary Respiratory: shortness of breath (better) Cardiovascular: no complaints Exam/Review of Systems Vital Signs Vitals Vital Signs Date Time Temp Pulse Resp B/P Pulse Ox O2 Delivery O2 Flow Rate FiO2 06/10/16 12:22 78 06/10/16 11:21 98.1 19 158/76 93 06/10/16 10:03 Nasal Cannula 4.0 06/09/16 17:54 40 Intake and Output 06/09/16 06/09/16 06/10/16 15:00 23:00 07:00 Intake Total 100 ml 1650 ml 550 ml Balance 100 ml 1650 ml 550 ml Exam Neck: supple Respiratory: clear to auscultation Cardiovascular: regular rate and rhythm Gastrointestinal: soft Musculoskeletal: nl extremities to inspection Extremities: normal pulses Results Result Diagram: 06/10/16 0555 06/10/16 0555 Results 24 hrs Laboratory Tests Test 06/10/16 05:55 Anion Gap 14 # Basophils # 0.0 Basophils % 0.3 Blood Urea Nitrogen 24 H Calcium Level 7.6 L Carbon Dioxide Level 30 Chloride Level 105 Creatinine 0.93 Eosinophils # 0.2 Eosinophils % 1.5 Glucose Level 85 # Hematocrit 34.3 L Hemoglobin 11.4 L Lymphocytes # 2.0 Lymphocytes % 18.8 Mean Corpuscular Hemoglobin 32.8 Mean Corpuscular Hemoglobin Concent 33.4 Mean Corpuscular Volume 98.2 Mean Platelet Volume 9.3 Monocytes # 0.5 Monocytes % 4.7 Neutrophils # 8.1 H Neutrophils % 74.7 Nucleated Red Blood Cells # 0.0 Nucleated Red Blood Cells % 0.0 Platelet Count 233 Potassium Level 3.3 L Red Blood Count 3.49 L Red Cell Distribution Width 13.4 Sodium Level 146 H White Blood Count 10.9 #H Medications Medications Current Medications Acetaminophen/ Codeine Phosphate (Tylenol No.3) 1 tab Q8 PRN PO PAIN; Start at 16:00 Amlodipine Besylate (Norvasc) 10 mg DAILY PO Last administered on 06/10/16 08: 52; Admin Dose 10 MG; Start 06/09/16 at 09:00 Aspirin (Halfprin) 81 mg DAILY PO Last administered on 06/10/16 08:51; Admin Dose 81 MG; Start 06/09/16 at 09:00 Cholecalciferol (Vitamin D) 2,000 unit DAILY PO Last administered on 06/10/16 08:53; Admin Dose 2,000 UNIT; Start 06/09/16 at 09:00 Diazepam (Valium) 5 mg BID PRN PO INSOMNIA Last administered on 06/09/16 20:56 ; Admin Dose 5 MG; Start 06/08/16 at 16:00 Gabapentin (Neurontin) 800 mg QID PO Last administered on 06/10/16 12:07; Admin Dose 800 MG; Start 06/08/16 at 17:00 Isosorbide Mononitrate (Imdur) 30 mg DAILY PO Last administered on 06/10/16 08 :51; Admin Dose 30 MG; Start 06/09/16 at 09:00 Metoprolol Tartrate (Lopressor) 25 mg BID PO Last administered on 06/10/16 08: 52; Admin Dose 25 MG; Start 06/08/16 at 21:00 Nitroglycerin (Nitroglycerin (Sl Tab) 0.4 Mg) 0.4 tab [id number] PRN SL CHEST PAIN; Start 06/08/16 at 16:00 Pregabalin (Lyrica) 75 mg DAILY PO Last administered on 06/10/16 08:55; Admin Dose 75 MG; Start 06/09/16 at 09:00 Quetiapine Fumarate (Seroquel) 100 mg HS PO Last administered on 06/09/16 20: 48; Admin Dose 100 MG; Start 06/08/16 at 21:00 Zolpidem Tartrate 10 mg 10 mg HS PRN PO INSOMNIA Last administered on 20:55; Admin Dose 10 MG; Start 06/08/16 at 16:00 Sodium Chloride (NS) 1,000 ml @ 50 mls/hr Q20H IV Last administered on 01:47; Admin Dose 50 MLS/HR; Start 06/08/16 at 15:38 Ondansetron HCl (Zofran Inj) 4 mg Q6H PRN IV NAUSEA AND/OR VOMITING; Start at 16:00 Docusate Sodium (Colace) 100 mg Q12H PRN PO CONSTIPATION; Start 06/08/16 at 16: 00 Magnesium Hydroxide (Milk Of Mag) 30 ml DAILY PRN PO CONSTIPATION; Start at 16:00 Enoxaparin Sodium 40 mg 40 mg DAILY SC Last administered on 06/10/16 08:57; Admin Dose 40 MG; Start 06/09/16 at 09:00 Piperacillin Sod/ Tazobactam Sod (Zosyn 3.375gm/ 100 ml (Pmx)) 100 ml @ 200 mls /hr Q8 IVPB Last administered on 06/10/16 06:04; Admin Dose 200 MLS/HR; Start 06/08/16 at 22:00 PEYMAN MARINO MD Jun 10, 2016 14:01
[2016-06-10] MEDS ORDERED: POTASSIUM CHLORIDE (SR) 10 MEQ TAB PO ONE (14:30)
--- NOTE | 2016-06-10 18:01 | CONS ---
Date/Time of Note Date/Time of Note DATE: 06/10/16 TIME: 18:01 Assessment/Plan Assessment/Plan Chief Complaint/Hosp Course IMPRESSION: LEUKOCYTOSIS REACTIVE SMEAR- NEG MONITOR BLOOD COUNT CLOSELY ATB-PER PMD ANEMIA COMPENSATED AT PRESENT OBSERVE CLOSELY NO NEEDS FOR TRANSFUSION community-acquired pneumonia. Bronchocentric consolidation, centrilobular nodules, and tree in bud nodularity in the seen throughout the left lung consistent with multifocal bronchiolitis/ bronchopneumonia. There is an associated trace parapneumonic effusion with associated atelectasis ON CT CHEST 7.16 Diabetes mellitus Problems: Consultation Date/Type/Reason Admit Date/Time Jun 08, 2016 at 19:14 Exam/Review of Systems Vital Signs Vitals Vital Signs Date Time Temp Pulse Resp B/P Pulse Ox O2 Delivery O2 Flow Rate FiO2 06/10/16 16:25 73 06/10/16 15:34 98.4 20 167/72 94 06/10/16 14:30 5.0 06/10/16 10:03 Nasal Cannula 06/09/16 17:54 40 Intake and Output 06/09/16 06/09/16 06/10/16 15:00 23:00 07:00 Intake Total 100 ml 1650 ml 550 ml Balance 100 ml 1650 ml 550 ml Results Result Diagram: 06/10/16 0555 06/10/16 0555 Results 24 hrs Laboratory Tests Test 06/10/16 05:55 Anion Gap 14 # Basophils # 0.0 Basophils % 0.3 Blood Urea Nitrogen 24 H Calcium Level 7.6 L Carbon Dioxide Level 30 Chloride Level 105 Creatinine 0.93 Eosinophils # 0.2 Eosinophils % 1.5 Glucose Level 85 # Hematocrit 34.3 L Hemoglobin 11.4 L Lymphocytes # 2.0 Lymphocytes % 18.8 Mean Corpuscular Hemoglobin 32.8 Mean Corpuscular Hemoglobin Concent 33.4 Mean Corpuscular Volume 98.2 Mean Platelet Volume 9.3 Monocytes # 0.5 Monocytes % 4.7 Neutrophils # 8.1 H Neutrophils % 74.7 Nucleated Red Blood Cells # 0.0 Nucleated Red Blood Cells % 0.0 Platelet Count 233 Potassium Level 3.3 L Red Blood Count 3.49 L Red Cell Distribution Width 13.4 Sodium Level 146 H White Blood Count 10.9 #H Medications Medications Current Medications Acetaminophen/ Codeine Phosphate (Tylenol No.3) 1 tab Q8 PRN PO PAIN; Start at 16:00 Amlodipine Besylate (Norvasc) 10 mg DAILY PO Last administered on 06/10/16 08: 52; Admin Dose 10 MG; Start 06/09/16 at 09:00 Aspirin (Halfprin) 81 mg DAILY PO Last administered on 06/10/16 08:51; Admin Dose 81 MG; Start 06/09/16 at 09:00 Cholecalciferol (Vitamin D) 2,000 unit DAILY PO Last administered on 06/10/16 08:53; Admin Dose 2,000 UNIT; Start 06/09/16 at 09:00 Diazepam (Valium) 5 mg BID PRN PO INSOMNIA Last administered on 06/09/16 20:56 ; Admin Dose 5 MG; Start 06/08/16 at 16:00 Gabapentin (Neurontin) 800 mg QID PO Last administered on 06/10/16 17:02; Admin Dose 800 MG; Start 06/08/16 at 17:00 Isosorbide Mononitrate (Imdur) 30 mg DAILY PO Last administered on 06/10/16 08 :51; Admin Dose 30 MG; Start 06/09/16 at 09:00 Metoprolol Tartrate (Lopressor) 25 mg BID PO Last administered on 06/10/16 08: 52; Admin Dose 25 MG; Start 06/08/16 at 21:00 Nitroglycerin (Nitroglycerin (Sl Tab) 0.4 Mg) 0.4 tab [id number] PRN SL CHEST PAIN; Start 06/08/16 at 16:00 Pregabalin (Lyrica) 75 mg DAILY PO Last administered on 06/10/16 08:55; Admin Dose 75 MG; Start 06/09/16 at 09:00 Quetiapine Fumarate (Seroquel) 100 mg HS PO Last administered on 06/09/16 20: 48; Admin Dose 100 MG; Start 06/08/16 at 21:00 Zolpidem Tartrate 10 mg 10 mg HS PRN PO INSOMNIA Last administered on 20:55; Admin Dose 10 MG; Start 06/08/16 at 16:00 Sodium Chloride (NS) 1,000 ml @ 50 mls/hr Q20H IV Last administered on 01:47; Admin Dose 50 MLS/HR; Start 06/08/16 at 15:38 Ondansetron HCl (Zofran Inj) 4 mg Q6H PRN IV NAUSEA AND/OR VOMITING; Start at 16:00 Docusate Sodium (Colace) 100 mg Q12H PRN PO CONSTIPATION; Start 06/08/16 at 16: 00 Magnesium Hydroxide (Milk Of Mag) 30 ml DAILY PRN PO CONSTIPATION; Start at 16:00 Enoxaparin Sodium 40 mg 40 mg DAILY SC Last administered on 06/10/16 08:57; Admin Dose 40 MG; Start 06/09/16 at 09:00 Piperacillin Sod/ Tazobactam Sod (Zosyn 3.375gm/ 100 ml (Pmx)) 100 ml @ 200 mls /hr Q8 IVPB Last administered on 06/10/16 14:13; Admin Dose 200 MLS/HR; Start 06/08/16 at 22:00 NARINDER WALTERS MD Jun 10, 2016 18:01
--- NOTE | 2016-06-10 18:38 | RADRPT ---
PROCEDURE: XR Chest. CLINICAL INDICATION: Shortness of breath. TECHNIQUE: PA and lateral chest x-ray. COMPARISON: Chest radiograph 06/08/2016. FINDINGS: The cardiomediastinal silhouette is unremarkable. Aortic atherosclerotic vascular calcifications ar e identified. Patchy opacification is noted in the left upper lung zone and right lower lung zone. No pneumothorax or pleural effusion is seen. There are multilevel mild to moderate degenerative changes of thoracic spine with decreased disk spa ryan and osteophytosis. IMPRESSION: 1. Patchy opacification in the left upper lung zone and right lower lung zone. 2. Aortic atherosclerosis. RPTAT: HFN .Shraddha Bloom MD, MD Date Time Electronically viewed and signed by .Shraddha Bloom MD, on 06/10/2016 18:38 .N/
[2016-06-10] MEDS: QUETIAPINE 100 MG TAB PO SCH (20:07)
[2016-06-10] MEDS: ZOLPIDEM 5 MG TAB PO PRN (21:56)
[2016-06-10] MEDS: DIAZEPAM 5 MG TAB PO PRN (21:56)
[2016-06-11] MEDS: ALBUTEROL/IPRATROPIUM (NEB) 3 ML AMP HHN SCH ×4 (01:48→20:22)
[2016-06-11] MEDS: SOD CHLORIDE 0.9% 1,000 ML IV SCH ×2 (03:45→23:38)
[2016-06-11] MEDS: LEVOTHYROXINE 125 MCG TAB PO SCH (06:18)
[2016-06-11] MEDS: PIPER-TAZO 3.375 GM IV (PMX) 100 ML IVPB SCH ×3 (06:18→22:04)
[2016-06-11 06:31] LABS: POTASSIUM 3.5 mmol/L (3.5-5.1)
[2016-06-11 06:33] LABS: BILIRUBIN,INDIRECT 0.6 mg/dl (0-1.1); BILIRUBIN,TOTAL 0.6 mg/dl (0.2-1.3); CREATININE 0.82 mg/dl (0.44-1.00)
[2016-06-11 06:34] LABS: ALBUMIN/GLOBULIN RATIO 0.86; CALCIUM 8.4 mg/dl (8.4-10.2); TOTAL PROTEIN 8.6 g/dl (6.1-8.1)
[2016-06-11 06:49] LABS: BASOPHILS % 0.3 % (0.0-2.0); EOSINOPHILS # 0.3 10^3/ul (0.0-0.5); EOSINOPHILS % 2.7 % (0.0-7.0); HEMATOCRIT 36.6 % (37.0-47.0); HEMOGLOBIN 12.6 g/dl (12.0-16.0); LYMPHOCYTES # 2.2 10^3/ul (0.8-2.9); MEAN CORPUSCULAR HEMOGLOBIN 33.5 pg (29.0-33.0); MEAN CORPUSCULAR HGB CONC 34.4 g/dl (32.0-37.0); MEAN CORPUSCULAR VOLUME 97.5 fl (82.0-101.0); MEAN PLATELET VOLUME 9.3 fl (7.4-10.4); MONOCYTE # 0.7 10^3/ul (0.3-0.9); MONOCYTES % 7.3 % (0.0-11.0); NEUTROPHIL # 6.8 10^3/ul (1.6-7.5); NEUTROPHILS % 67.7 % (39.0-77.0); PLATELET COUNT 282 10^3/UL (140-440); RED BLOOD COUNT 3.76 10^6/ul (4.20-5.40)
[2016-06-11 07:11] LABS: CONDITION 1
[2016-06-11 07:58] VITALS: BP 163/88; PULSE 57; RESP 18
[2016-06-11] MEDS: PANTOPRAZOLE (EC) 40 MG TAB PO SCH (08:34)
[2016-06-11] MEDS: GABAPENTIN 400 MG CAP PO SCH ×4 (08:34→20:17)
[2016-06-11] MEDS: CHOLECALCIFEROL 2,000 UNIT CAP PO SCH (08:34)
[2016-06-11] MEDS: ASPIRIN (EC) 81 MG TAB PO SCH (08:34)
[2016-06-11] MEDS: ISOSORBIDE MONONITRATE(SR)30 MG TAB PO SCH (08:35)
[2016-06-11] MEDS: AMLODIPINE 10 MG TAB PO SCH (08:36)
[2016-06-11] MEDS: PREGABALIN 75 MG CAP PO SCH (08:36)
[2016-06-11] MEDS: METOPROLOL 25 MG TAB PO SCH ×2 (08:36→20:17)
[2016-06-11] MEDS: ENOXAPARIN 40 MG/0.4 ML SYG SC SCH (08:42)
[2016-06-11 11:00] VITALS: BP 136/64
--- NOTE | 2016-06-11 15:42 | PN ---
Date/Time of Note Date/Time of Note DATE: 06/11/16 TIME: 15:41 Assessment/Plan VTE Prophylaxis VTE Prophylaxis Intervention: other Lines/Catheters IV [facility] Type (from [facility] Peripheral IV Urinary Cath still in place: No Assessment/Plan Chief Complaint/Hosp Course IMPRESSION: 1. Possible community-acquired pneumonia. 2. htn 3. Diabetes mellitus plan per order bp meds Problems: Subjective 24 Hr Interval Summary Respiratory: no complaints Cardiovascular: no complaints Exam/Review of Systems Vital Signs Vitals Vital Signs Date Time Temp Pulse Resp B/P Pulse Ox O2 Delivery O2 Flow Rate FiO2 06/11/16 14:15 64 20 93 Nasal Cannula 3.0 06/11/16 07:58 98.1 163/88 06/09/16 17:54 40 Intake and Output 06/10/16 06/10/16 06/11/16 15:00 23:00 07:00 Intake Total 100 ml 1550 ml 1630 ml Balance 100 ml 1550 ml 1630 ml Exam Neck: supple Respiratory: clear to auscultation Cardiovascular: regular rate and rhythm Gastrointestinal: soft Results Result Diagram: 06/11/16 0520 06/11/16 0535 Results 24 hrs Laboratory Tests Test 06/11/16 05:20 06/11/16 05:35 Basophils # 0.0 Basophils % 0.3 Eosinophils # 0.3 Eosinophils % 2.7 Hematocrit 36.6 L Hemoglobin 12.6 Lymphocytes # 2.2 Lymphocytes % 22.0 Mean Corpuscular Hemoglobin 33.5 H Mean Corpuscular Hemoglobin Concent 34.4 Mean Corpuscular Volume 97.5 Mean Platelet Volume 9.3 Monocytes # 0.7 Monocytes % 7.3 Neutrophils # 6.8 Neutrophils % 67.7 Nucleated Red Blood Cells # 0.0 Nucleated Red Blood Cells % 0.0 Platelet Count 282 # Red Blood Count 3.76 L Red Cell Distribution Width 13.0 White Blood Count 10.0 Alanine Aminotransferase (ALT/SGPT) 43 Albumin 4.0 Albumin/Globulin Ratio 0.86 Alkaline Phosphatase 68 Anion Gap 19 H Aspartate Amino Transf (AST/SGOT) 28 Blood Urea Nitrogen 15 # Calcium Level 8.4 Carbon Dioxide Level 32 H Chloride Level 99 Creatinine 0.82 Direct Bilirubin 0.00 Globulin 4.60 H Glucose Level 85 Indirect Bilirubin 0.6 Potassium Level 3.5 Sodium Level 146 H Total Bilirubin 0.6 Total Protein 8.6 H Medications Medications Current Medications Acetaminophen/ Codeine Phosphate (Tylenol No.3) 1 tab Q8 PRN PO PAIN; Start at 16:00 Amlodipine Besylate (Norvasc) 10 mg DAILY PO Last administered on 06/11/16 08: 36; Admin Dose 10 MG; Start 06/09/16 at 09:00 Aspirin (Halfprin) 81 mg DAILY PO Last administered on 06/11/16 08:34; Admin Dose 81 MG; Start 06/09/16 at 09:00 Cholecalciferol (Vitamin D) 2,000 unit DAILY PO Last administered on 06/11/16 08:34; Admin Dose 2,000 UNIT; Start 06/09/16 at 09:00 Diazepam (Valium) 5 mg BID PRN PO INSOMNIA Last administered on 06/10/16 21:56 ; Admin Dose 5 MG; Start 06/08/16 at 16:00 Gabapentin (Neurontin) 800 mg QID PO Last administered on 06/11/16 12:25; Admin Dose 800 MG; Start 06/08/16 at 17:00 Isosorbide Mononitrate (Imdur) 30 mg DAILY PO Last administered on 06/11/16 08 :35; Admin Dose 30 MG; Start 06/09/16 at 09:00 Metoprolol Tartrate (Lopressor) 25 mg BID PO Last administered on 06/11/16 08: 36; Admin Dose 25 MG; Start 06/08/16 at 21:00 Nitroglycerin (Nitroglycerin (Sl Tab) 0.4 Mg) 0.4 tab [id number] PRN SL CHEST PAIN; Start 06/08/16 at 16:00 Pregabalin (Lyrica) 75 mg DAILY PO Last administered on 06/11/16 08:36; Admin Dose 75 MG; Start 06/09/16 at 09:00 Quetiapine Fumarate (Seroquel) 100 mg HS PO Last administered on 06/10/16 20: 07; Admin Dose 100 MG; Start 06/08/16 at 21:00 Zolpidem Tartrate 10 mg 10 mg HS PRN PO INSOMNIA Last administered on 21:56; Admin Dose 10 MG; Start 06/08/16 at 16:00 Sodium Chloride (NS) 1,000 ml @ 50 mls/hr Q20H IV Last administered on 03:45; Admin Dose 50 MLS/HR; Start 06/08/16 at 15:38 Ondansetron HCl (Zofran Inj) 4 mg Q6H PRN IV NAUSEA AND/OR VOMITING; Start at 16:00 Docusate Sodium (Colace) 100 mg Q12H PRN PO CONSTIPATION; Start 06/08/16 at 16: 00 Magnesium Hydroxide (Milk Of Mag) 30 ml DAILY PRN PO CONSTIPATION; Start at 16:00 Enoxaparin Sodium 40 mg 40 mg DAILY SC Last administered on 06/11/16 08:42; Admin Dose 40 MG; Start 06/09/16 at 09:00 Piperacillin Sod/ Tazobactam Sod (Zosyn 3.375gm/ 100 ml (Pmx)) 100 ml @ 200 mls /hr Q8 IVPB Last administered on 06/11/16 15:10; Admin Dose 200 MLS/HR; Start 06/08/16 at 22:00 PEYMAN MARINO MD Jun 11, 2016 15:42
[2016-06-11 19:46] VITALS: BP 167/78; RESP 20
[2016-06-11 20:17] VITALS: BP 190/88; PULSE 60
[2016-06-11] MEDS: QUETIAPINE 100 MG TAB PO SCH (20:17)
[2016-06-11 22:00] VITALS: BP 140/69; PULSE 63
[2016-06-11] MEDS: DIAZEPAM 5 MG TAB PO PRN (22:04)
[2016-06-11] MEDS: ZOLPIDEM 5 MG TAB PO PRN (22:28)
--- NOTE | 2016-06-11 23:27 | CONS ---
Date/Time of Note Date/Time of Note DATE: 06/11/16 TIME: 23:27 Assessment/Plan Assessment/Plan Chief Complaint/Hosp Course IMPRESSION: LEUKOCYTOSIS REACTIVE SMEAR- NEG MONITOR BLOOD COUNT CLOSELY ATB-PER PMD ANEMIA COMPENSATED AT PRESENT OBSERVE CLOSELY NO NEEDS FOR TRANSFUSION community-acquired pneumonia. Bronchocentric consolidation, centrilobular nodules, and tree in bud nodularity in the seen throughout the left lung consistent with multifocal bronchiolitis/ bronchopneumonia. There is an associated trace parapneumonic effusion with associated atelectasis ON CT CHEST 7.16 Diabetes mellitus Problems: Consultation Date/Type/Reason Admit Date/Time Jun 08, 2016 at 19:14 Initial Consult Date 06.08.16 Type of Consultation: HEMEONC Reason for Consultation ANEMIA LEUKOCYTOSIS Referring Provider: PEYMAN MARINO 24 HR Interval Summary Free Text/Dictation ALL NOTED WEAK WBC- ELEVATED ON ATB Exam/Review of Systems Vital Signs Vitals Vital Signs Date Time Temp Pulse Resp B/P Pulse Ox O2 Delivery O2 Flow Rate FiO2 06/11/16 22:00 63 140/69 06/11/16 20:33 Nasal Cannula 3.0 06/11/16 20:23 18 95 06/11/16 19:46 98.5 06/09/16 17:54 40 Intake and Output 06/10/16 06/10/16 06/11/16 15:00 23:00 07:00 Intake Total 100 ml 1550 ml 1630 ml Balance 100 ml 1550 ml 1630 ml Exam VITAL SIGNS: per chart NECK: Supple. No JVD or lymphadenopathy. CARDIAC EXAM: S1, S2. No added sounds or murmurs. CHEST: clear bilaterally, No added sounds, rales or wheezes ABDOMEN: Soft, nontender. No guarding or rebound. EXTREMITIES: No cyanosis, clubbing or edema. NEUROLOGIC: Generalized weakness. No focal deficits. Results Result Diagram: 06/11/16 0520 06/11/16 0535 Results 24 hrs Laboratory Tests Test 06/11/16 05:20 06/11/16 05:35 Basophils # 0.0 Basophils % 0.3 Eosinophils # 0.3 Eosinophils % 2.7 Hematocrit 36.6 L Hemoglobin 12.6 Lymphocytes # 2.2 Lymphocytes % 22.0 Mean Corpuscular Hemoglobin 33.5 H Mean Corpuscular Hemoglobin Concent 34.4 Mean Corpuscular Volume 97.5 Mean Platelet Volume 9.3 Monocytes # 0.7 Monocytes % 7.3 Neutrophils # 6.8 Neutrophils % 67.7 Nucleated Red Blood Cells # 0.0 Nucleated Red Blood Cells % 0.0 Platelet Count 282 # Red Blood Count 3.76 L Red Cell Distribution Width 13.0 White Blood Count 10.0 Alanine Aminotransferase (ALT/SGPT) 43 Albumin 4.0 Albumin/Globulin Ratio 0.86 Alkaline Phosphatase 68 Anion Gap 19 H Aspartate Amino Transf (AST/SGOT) 28 Blood Urea Nitrogen 15 # Calcium Level 8.4 Carbon Dioxide Level 32 H Chloride Level 99 Creatinine 0.82 Direct Bilirubin 0.00 Globulin 4.60 H Glucose Level 85 Indirect Bilirubin 0.6 Potassium Level 3.5 Sodium Level 146 H Total Bilirubin 0.6 Total Protein 8.6 H Medications Medications Current Medications Acetaminophen/ Codeine Phosphate (Tylenol No.3) 1 tab Q8 PRN PO PAIN; Start at 16:00 Amlodipine Besylate (Norvasc) 10 mg DAILY PO Last administered on 06/11/16 08: 36; Admin Dose 10 MG; Start 06/09/16 at 09:00 Aspirin (Halfprin) 81 mg DAILY PO Last administered on 06/11/16 08:34; Admin Dose 81 MG; Start 06/09/16 at 09:00 Cholecalciferol (Vitamin D) 2,000 unit DAILY PO Last administered on 06/11/16 08:34; Admin Dose 2,000 UNIT; Start 06/09/16 at 09:00 Diazepam (Valium) 5 mg BID PRN PO INSOMNIA Last administered on 06/11/16 22:04 ; Admin Dose 5 MG; Start 06/08/16 at 16:00 Gabapentin (Neurontin) 800 mg QID PO Last administered on 06/11/16 20:17; Admin Dose 800 MG; Start 06/08/16 at 17:00 Isosorbide Mononitrate (Imdur) 30 mg DAILY PO Last administered on 06/11/16 08 :35; Admin Dose 30 MG; Start 06/09/16 at 09:00 Metoprolol Tartrate (Lopressor) 25 mg BID PO Last administered on 06/11/16 20: 17; Admin Dose 25 MG; Start 06/08/16 at 21:00 Nitroglycerin (Nitroglycerin (Sl Tab) 0.4 Mg) 0.4 tab [id number] PRN SL CHEST PAIN; Start 06/08/16 at 16:00 Pregabalin (Lyrica) 75 mg DAILY PO Last administered on 06/11/16 08:36; Admin Dose 75 MG; Start 06/09/16 at 09:00 Quetiapine Fumarate (Seroquel) 100 mg HS PO Last administered on 06/11/16 20: 17; Admin Dose 100 MG; Start 06/08/16 at 21:00 Zolpidem Tartrate 10 mg 10 mg HS PRN PO INSOMNIA Last administered on 22:28; Admin Dose 10 MG; Start 06/08/16 at 16:00 Sodium Chloride (NS) 1,000 ml @ 50 mls/hr Q20H IV Last administered on 03:45; Admin Dose 50 MLS/HR; Start 06/08/16 at 15:38 Ondansetron HCl (Zofran Inj) 4 mg Q6H PRN IV NAUSEA AND/OR VOMITING; Start at 16:00 Docusate Sodium (Colace) 100 mg Q12H PRN PO CONSTIPATION; Start 06/08/16 at 16: 00 Magnesium Hydroxide (Milk Of Mag) 30 ml DAILY PRN PO CONSTIPATION; Start at 16:00 Enoxaparin Sodium 40 mg 40 mg DAILY SC Last administered on 06/11/16 08:42; Admin Dose 40 MG; Start 06/09/16 at 09:00 Piperacillin Sod/ Tazobactam Sod (Zosyn 3.375gm/ 100 ml (Pmx)) 100 ml @ 200 mls /hr Q8 IVPB Last administered on 06/11/16 22:04; Admin Dose 200 MLS/HR; Start 06/08/16 at 22:00 Hydralazine HCl (Apresoline) 25 mg Q8 PO Last administered on 06/11/16 22:04; Admin Dose 25 MG; Start 06/11/16 at 22:00 NARINDER WALTERS MD Jun 11, 2016 23:27
[2016-06-12] VITALS (8 sets, daily range): BP systolic 143–176; BP diastolic 69–84; PULSE 58–73; RESP 18–20
[2016-06-12] MEDS: ALBUTEROL/IPRATROPIUM (NEB) 3 ML AMP HHN SCH ×4 (02:00→19:55)
[2016-06-12] MEDS: SOD CHLORIDE 0.9% 1,000 ML IV SCH ×2 (04:34→19:38)
[2016-06-12] MEDS: PIPER-TAZO 3.375 GM IV (PMX) 100 ML IVPB SCH ×3 (05:31→22:09)
[2016-06-12] MEDS: PANTOPRAZOLE (EC) 40 MG TAB PO SCH (06:24)
[2016-06-12] MEDS: LEVOTHYROXINE 125 MCG TAB PO SCH (06:24)
[2016-06-12] MEDS: PREGABALIN 75 MG CAP PO SCH (08:25)
[2016-06-12] MEDS: ISOSORBIDE MONONITRATE(SR)30 MG TAB PO SCH (08:26)
[2016-06-12] MEDS: CHOLECALCIFEROL 2,000 UNIT CAP PO SCH (08:26)
[2016-06-12] MEDS: AMLODIPINE 10 MG TAB PO SCH (08:28)
[2016-06-12] MEDS: ASPIRIN (EC) 81 MG TAB PO SCH (08:29)
[2016-06-12] MEDS: METOPROLOL 25 MG TAB PO SCH ×2 (08:29→20:12)
[2016-06-12] MEDS: GABAPENTIN 400 MG CAP PO SCH ×4 (08:30→20:11)
[2016-06-12] MEDS: ENOXAPARIN 40 MG/0.4 ML SYG SC SCH (08:34)
--- NOTE | 2016-06-12 09:44 | PN ---
Date/Time of Note Date/Time of Note DATE: 06/12/16 TIME: 09:43 Assessment/Plan VTE Prophylaxis VTE Prophylaxis Intervention: other Lines/Catheters [facility] Peripheral IV Urinary Cath still in place: No Assessment/Plan Chief Complaint/Hosp Course IMPRESSION: 1. Possible community-acquired pneumonia. 2. htn 3. Diabetes mellitus plan per order bp meds xr chest Problems: Subjective 24 Hr Interval Summary Respiratory: no complaints Cardiovascular: no complaints Exam/Review of Systems Vital Signs Vitals Vital Signs Date Time Temp Pulse Resp B/P Pulse Ox O2 Delivery O2 Flow Rate FiO2 06/12/16 08:34 73 169/79 97 Nasal Cannula 06/12/16 07:38 3.0 06/12/16 07:37 18 06/12/16 07:26 97.9 06/09/16 17:54 40 Intake and Output 06/11/16 06/11/16 06/12/16 15:00 23:00 07:00 Intake Total 750 ml 710 ml Output Total 900 ml Balance 750 ml -190 ml Exam Neck: supple Respiratory: clear to auscultation Cardiovascular: regular rate and rhythm Gastrointestinal: soft Results Result Diagram: 06/11/16 0520 06/11/16 0535 Medications Medications Current Medications Acetaminophen/ Codeine Phosphate (Tylenol No.3) 1 tab Q8 PRN PO PAIN; Start at 16:00 Amlodipine Besylate (Norvasc) 10 mg DAILY PO Last administered on 06/12/16 08: 28; Admin Dose 10 MG; Start 06/09/16 at 09:00 Aspirin (Halfprin) 81 mg DAILY PO Last administered on 06/12/16 08:29; Admin Dose 81 MG; Start 06/09/16 at 09:00 Cholecalciferol (Vitamin D) 2,000 unit DAILY PO Last administered on 06/12/16 08:26; Admin Dose 2,000 UNIT; Start 06/09/16 at 09:00 Diazepam (Valium) 5 mg BID PRN PO INSOMNIA Last administered on 06/11/16 22:04 ; Admin Dose 5 MG; Start 06/08/16 at 16:00 Gabapentin (Neurontin) 800 mg QID PO Last administered on 06/12/16 08:30; Admin Dose 800 MG; Start 06/08/16 at 17:00 Isosorbide Mononitrate (Imdur) 30 mg DAILY PO Last administered on 06/12/16 08 :26; Admin Dose 30 MG; Start 06/09/16 at 09:00 Metoprolol Tartrate (Lopressor) 25 mg BID PO Last administered on 06/12/16 08: 29; Admin Dose 25 MG; Start 06/08/16 at 21:00 Nitroglycerin (Nitroglycerin (Sl Tab) 0.4 Mg) 0.4 tab [id number] PRN SL CHEST PAIN; Start 06/08/16 at 16:00 Pregabalin (Lyrica) 75 mg DAILY PO Last administered on 06/12/16 08:25; Admin Dose 75 MG; Start 06/09/16 at 09:00 Quetiapine Fumarate (Seroquel) 100 mg HS PO Last administered on 06/11/16 20: 17; Admin Dose 100 MG; Start 06/08/16 at 21:00 Zolpidem Tartrate 10 mg 10 mg HS PRN PO INSOMNIA Last administered on 22:28; Admin Dose 10 MG; Start 06/08/16 at 16:00 Sodium Chloride (NS) 1,000 ml @ 50 mls/hr Q20H IV Last administered on 04:34; Admin Dose 50 MLS/HR; Start 06/08/16 at 15:38 Ondansetron HCl (Zofran Inj) 4 mg Q6H PRN IV NAUSEA AND/OR VOMITING; Start at 16:00 Docusate Sodium (Colace) 100 mg Q12H PRN PO CONSTIPATION; Start 06/08/16 at 16: 00 Magnesium Hydroxide (Milk Of Mag) 30 ml DAILY PRN PO CONSTIPATION; Start at 16:00 Enoxaparin Sodium 40 mg 40 mg DAILY SC Last administered on 06/12/16 08:34; Admin Dose 40 MG; Start 06/09/16 at 09:00 Piperacillin Sod/ Tazobactam Sod (Zosyn 3.375gm/ 100 ml (Pmx)) 100 ml @ 200 mls /hr Q8 IVPB Last administered on 06/12/16 05:31; Admin Dose 200 MLS/HR; Start 06/08/16 at 22:00 Hydralazine HCl (Apresoline) 25 mg Q8 PO Last administered on 06/12/16t 05:31; Admin Dose 25 MG; Start 06/11/16 at 22:00 PEYMAN MARINO MD Jun 12, 2016 09:44
--- NOTE | 2016-06-12 10:52 | RADRPT ---
PROCEDURE: XR Chest. CLINICAL INDICATION: Shortness of breath. Follow up pneumonia. TECHNIQUE: PA and Lateral views of the chest were obtained. COMPARISON: None. FINDINGS: The cardiomediastinal silhouette is within normal limits. Atherosclerotic aortic calcification. . P ersistent left suprahilar upper lobe and a right lower lobe patchy opacification without significant interval change. No pneumothorax. The osseous structures and soft tissues are unremarkable. IMPRESSION: Stable patchy left upper and right lower lobe air space opacities. No other interval change.. RPTAT:AAJJ Physician Yue Date Time Electronically viewed and signed by Physician Yue on 06/12/2016 10:51 JESSICA/
--- NOTE | 2016-06-12 15:19 | PDOCDIS ---
Discharge Instructions CONDITION Patient Condition: Good HOME CARE INSTRUCTIONS: Special Diet: low cholesterol ACTIVITY: Activity Restrictions: Slowly Increase Activity FOLLOW UP/APPOINTMENTS Appointments f/u dr cerrato 1 wk PEYMAN MARINO MD Jun 12, 2016 15:19
[2016-06-12] MEDS ORDERED: LEVO500T72 PO (15:21)
[2016-06-12] MEDS ORDERED: ALBU8.5H3 INH (15:21)
[2016-06-12] MEDS: QUETIAPINE 100 MG TAB PO SCH (22:09)
[2016-06-12] MEDS: DIAZEPAM 5 MG TAB PO PRN (22:11)
[2016-06-12] MEDS: ACETAMINOPHEN/CODEINE #3 TAB PO PRN (22:44)
[2016-06-12] MEDS: ZOLPIDEM 5 MG TAB PO PRN (22:44)
--- NOTE | 2016-06-12 22:59 | CONS ---
Date/Time of Note Date/Time of Note DATE: 06/12/16 TIME: 22:59 Assessment/Plan Assessment/Plan Chief Complaint/Hosp Course IMPRESSION: LEUKOCYTOSIS REACTIVE SMEAR- NEG MONITOR BLOOD COUNT CLOSELY ATB-PER PMD ANEMIA COMPENSATED AT PRESENT OBSERVE CLOSELY NO NEEDS FOR TRANSFUSION community-acquired pneumonia. Bronchocentric consolidation, centrilobular nodules, and tree in bud nodularity in the seen throughout the left lung consistent with multifocal bronchiolitis/ bronchopneumonia. There is an associated trace parapneumonic effusion with associated atelectasis ON CT CHEST 7.16 Diabetes mellitus Problems: Consultation Date/Type/Reason Admit Date/Time Jun 08, 2016 at 19:14 24 HR Interval Summary Free Text/Dictation IMPROVING Exam/Review of Systems Vital Signs Vitals Vital Signs Date Time Temp Pulse Resp B/P Pulse Ox O2 Delivery O2 Flow Rate FiO2 06/12/16 22:45 59 143/75 06/12/16 20:12 98.8 18 92 Nasal Cannula 3.0 06/09/16 17:54 40 Intake and Output 06/11/16 06/11/16 06/12/16 15:00 23:00 07:00 Intake Total 750 ml 710 ml Output Total 900 ml Balance 750 ml -190 ml Exam Neck: supple Respiratory: clear to auscultation Cardiovascular: regular rate and rhythm Gastrointestinal: soft Musculoskeletal: nl extremities to inspection Extremities: normal pulses Results Result Diagram: 06/11/16 0520 06/11/16 0535 Medications Medications Current Medications Amlodipine Besylate (Norvasc) 10 mg DAILY PO Last administered on 06/12/16 08: 28; Admin Dose 10 MG; Start 06/09/16 at 09:00 Aspirin (Halfprin) 81 mg DAILY PO Last administered on 06/12/16 08:29; Admin Dose 81 MG; Start 06/09/16 at 09:00 Cholecalciferol (Vitamin D) 2,000 unit DAILY PO Last administered on 06/12/16 08:26; Admin Dose 2,000 UNIT; Start 06/09/16 at 09:00 Diazepam (Valium) 5 mg BID PRN PO INSOMNIA Last administered on 06/12/16 22:11 ; Admin Dose 5 MG; Start 06/08/16 at 16:00 Gabapentin (Neurontin) 800 mg QID PO Last administered on 06/12/16 20:11; Admin Dose 800 MG; Start 06/08/16 at 17:00 Isosorbide Mononitrate (Imdur) 30 mg DAILY PO Last administered on 06/12/16 08 :26; Admin Dose 30 MG; Start 06/09/16 at 09:00 Metoprolol Tartrate (Lopressor) 25 mg BID PO Last administered on 06/12/16 20: 12; Admin Dose 25 MG; Start 06/08/16 at 21:00 Nitroglycerin (Nitroglycerin (Sl Tab) 0.4 Mg) 0.4 tab [id number] PRN SL CHEST PAIN; Start 06/08/16 at 16:00 Pregabalin (Lyrica) 75 mg DAILY PO Last administered on 06/12/16 08:25; Admin Dose 75 MG; Start 06/09/16 at 09:00 Quetiapine Fumarate (Seroquel) 100 mg HS PO Last administered on 06/12/16 22: 09; Admin Dose 100 MG; Start 06/08/16 at 21:00 Zolpidem Tartrate 10 mg 10 mg HS PRN PO INSOMNIA Last administered on 22:44; Admin Dose 10 MG; Start 06/08/16 at 16:00 Sodium Chloride (NS) 1,000 ml @ 50 mls/hr Q20H IV Last administered on 04:34; Admin Dose 50 MLS/HR; Start 06/08/16 at 15:38 Ondansetron HCl (Zofran Inj) 4 mg Q6H PRN IV NAUSEA AND/OR VOMITING; Start at 16:00 Docusate Sodium (Colace) 100 mg Q12H PRN PO CONSTIPATION; Start 06/08/16 at 16: 00 Magnesium Hydroxide (Milk Of Mag) 30 ml DAILY PRN PO CONSTIPATION; Start at 16:00 Enoxaparin Sodium 40 mg 40 mg DAILY SC Last administered on 06/12/16 08:34; Admin Dose 40 MG; Start 06/09/16 at 09:00 Piperacillin Sod/ Tazobactam Sod (Zosyn 3.375gm/ 100 ml (Pmx)) 100 ml @ 200 mls /hr Q8 IVPB Last administered on 06/12/16 22:09; Admin Dose 200 MLS/HR; Start 06/08/16 at 22:00 Hydralazine HCl (Apresoline) 25 mg Q8 PO Last administered on 06/12/16 22:10; Admin Dose 25 MG; Start 06/11/16 at 22:00 Acetaminophen/ Codeine Phosphate (Tylenol No.3) 1 tab Q6 PRN PO PAIN Last administered on 06/12/16 22:44; Admin Dose 1 TAB; Start 06/12/16 at 22:36 NARINDER WALTERS MD Jun 12, 2016 22:59
[2016-06-13] MEDS: SOD CHLORIDE 0.9% 1,000 ML IV SCH ×2 (00:34→15:38)
[2016-06-13] MEDS: ALBUTEROL/IPRATROPIUM (NEB) 3 ML AMP HHN SCH ×4 (01:11→19:40)
[2016-06-13] MEDS: ACETAMINOPHEN/CODEINE #3 TAB PO PRN ×2 (06:24→20:30)
[2016-06-13] MEDS: LEVOTHYROXINE 125 MCG TAB PO SCH (06:24)
[2016-06-13] MEDS: PANTOPRAZOLE (EC) 40 MG TAB PO SCH (06:25)
[2016-06-13] MEDS: PIPER-TAZO 3.375 GM IV (PMX) 100 ML IVPB SCH ×3 (06:25→21:34)
[2016-06-13 07:08] LABS: POTASSIUM 3.8 mmol/L (3.5-5.1)
[2016-06-13 07:11] LABS: CREATININE 0.75 mg/dl (0.44-1.00)
[2016-06-13 07:12] LABS: CALCIUM 8.5 mg/dl (8.4-10.2)
[2016-06-13 07:31] VITALS: BP 147/72; RESP 18
[2016-06-13] MEDS: GABAPENTIN 400 MG CAP PO SCH ×4 (08:37→20:26)
[2016-06-13] MEDS: CHOLECALCIFEROL 2,000 UNIT CAP PO SCH (08:37)
[2016-06-13] MEDS: METOPROLOL 25 MG TAB PO SCH ×2 (08:38→20:27)
[2016-06-13] MEDS: ASPIRIN (EC) 81 MG TAB PO SCH (08:39)
[2016-06-13] MEDS: ISOSORBIDE MONONITRATE(SR)30 MG TAB PO SCH (08:39)
[2016-06-13] MEDS: AMLODIPINE 10 MG TAB PO SCH (08:39)
[2016-06-13] MEDS: ENOXAPARIN 40 MG/0.4 ML SYG SC SCH (08:44)
[2016-06-13] MEDS: PREGABALIN 75 MG CAP PO SCH (10:39)
--- NOTE | 2016-06-13 12:31 | PN ---
Date/Time of Note Date/Time of Note DATE: 06/13/16 TIME: 12:30 Assessment/Plan VTE Prophylaxis VTE Prophylaxis Intervention: other Lines/Catheters [facility] Peripheral IV Urinary Cath still in place: No Assessment/Plan Chief Complaint/Hosp Course IMPRESSION: 1. Possible community-acquired pneumonia. 2. htn 3. Diabetes mellitus plan per order bp meds pul dr lomeli to see Problems: Subjective 24 Hr Interval Summary Eyes: no complaints ENT: no complaints Respiratory: no complaints Exam/Review of Systems Vital Signs Vitals Vital Signs Date Time Temp Pulse Resp B/P Pulse Ox O2 Delivery O2 Flow Rate FiO2 06/13/16 09:18 70 20 Nasal Cannula 3.0 32 06/13/16 07:31 98.2 147/72 95 Intake and Output 06/12/16 06/12/16 06/13/16 15:00 23:00 07:00 Intake Total 1510 ml 1200 ml Output Total 600 ml Balance 1510 ml 600 ml Exam Neck: supple Respiratory: clear to auscultation Cardiovascular: regular rate and rhythm Gastrointestinal: soft Musculoskeletal: nl extremities to inspection Extremities: normal pulses Results Result Diagram: 06/11/16 0520 06/13/16 0544 Results 24 hrs Laboratory Tests Test 06/13/16 05:44 Anion Gap 17 H Blood Urea Nitrogen 18 Calcium Level 8.5 Carbon Dioxide Level 30 Chloride Level 102 Creatinine 0.75 Glucose Level 86 Potassium Level 3.8 Sodium Level 145 H Medications Medications Current Medications Amlodipine Besylate (Norvasc) 10 mg DAILY PO Last administered on 06/13/16 08: 39; Admin Dose 10 MG; Start 06/09/16 at 09:00 Aspirin (Halfprin) 81 mg DAILY PO Last administered on 06/13/16 08:39; Admin Dose 81 MG; Start 06/09/16 at 09:00 Cholecalciferol (Vitamin D) 2,000 unit DAILY PO Last administered on 06/13/16 08:37; Admin Dose 2,000 UNIT; Start 06/09/16 at 09:00 Diazepam (Valium) 5 mg BID PRN PO INSOMNIA Last administered on 06/12/16 22:11 ; Admin Dose 5 MG; Start 06/08/16 at 16:00 Gabapentin (Neurontin) 800 mg QID PO Last administered on 06/13/16 08:37; Admin Dose 800 MG; Start 06/08/16 at 17:00 Isosorbide Mononitrate (Imdur) 30 mg DAILY PO Last administered on 06/13/16 08 :39; Admin Dose 30 MG; Start 06/09/16 at 09:00 Metoprolol Tartrate (Lopressor) 25 mg BID PO Last administered on 06/13/16 08: 38; Admin Dose 25 MG; Start 06/08/16 at 21:00 Nitroglycerin (Nitroglycerin (Sl Tab) 0.4 Mg) 0.4 tab [id number] PRN SL CHEST PAIN; Start 06/08/16 at 16:00 Pregabalin (Lyrica) 75 mg DAILY PO Last administered on 06/13/16 10:39; Admin Dose 75 MG; Start 06/09/16 at 09:00 Quetiapine Fumarate (Seroquel) 100 mg HS PO Last administered on 06/12/16 22: 09; Admin Dose 100 MG; Start 06/08/16 at 21:00 Zolpidem Tartrate 10 mg 10 mg HS PRN PO INSOMNIA Last administered on 22:44; Admin Dose 10 MG; Start 06/08/16 at 16:00 Sodium Chloride (NS) 1,000 ml @ 50 mls/hr Q20H IV Last administered on 00:34; Admin Dose 50 MLS/HR; Start 06/08/16 at 15:38 Ondansetron HCl (Zofran Inj) 4 mg Q6H PRN IV NAUSEA AND/OR VOMITING; Start at 16:00 Docusate Sodium (Colace) 100 mg Q12H PRN PO CONSTIPATION; Start 06/08/16 at 16: 00 Magnesium Hydroxide (Milk Of Mag) 30 ml DAILY PRN PO CONSTIPATION; Start at 16:00 Enoxaparin Sodium 40 mg 40 mg DAILY SC Last administered on 06/13/16 08:44; Admin Dose 40 MG; Start 06/09/16 at 09:00 Piperacillin Sod/ Tazobactam Sod (Zosyn 3.375gm/ 100 ml (Pmx)) 100 ml @ 200 mls /hr Q8 IVPB Last administered on 06/13/16 06:25; Admin Dose 200 MLS/HR; Start 06/08/16 at 22:00 Hydralazine HCl (Apresoline) 25 mg Q8 PO Last administered on 06/13/16 06:24; Admin Dose 25 MG; Start 06/11/16 at 22:00 Acetaminophen/ Codeine Phosphate (Tylenol No.3) 1 tab Q6 PRN PO PAIN Last administered on 06/13/16 06:24; Admin Dose 1 TAB; Start 06/12/16 at 22:36 PEYMAN MARINO MD Jun 13, 2016 12:31
--- NOTE | 2016-06-13 20:12 | CONS ---
DATE OF ADMISSION: 06/08/2016 DATE OF CONSULTATION: 06/13/2016 TYPE OF CONSULTATION: Pulmonary. PRIMARY PHYSICIAN: Jonn Marino MD REASON FOR CONSULTATION: Pneumonia. HISTORY OF PRESENT ILLNESS: Briefly, this is a 76-year-old [place] female who immigrated from [facility] over 20 years ago, who has had a history of COPD, hyperlipidemia and who was last admitted back in November of 2015, at which point she had a CT chest showing left upper lobe nodular opacities as well as left lower lobe pneumonia. She endorses a history of cough and fevers that have now resolved. Denies any TB exposure. PAST MEDICAL HISTORY: As noted above, additionally diabetes, abdominal surgery, appendectomy, ricky cystectomy, anemia and prior UTI. ALLERGIES: CONTRAST MEDIA. SOCIAL HISTORY: About [id number] tobacco, no alcohol or illicit drug use. MEDICATIONS: Please see MAR. FAMILY HISTORY: Noncontributory. REVIEW OF SYSTEMS: As noted in the HPI. PHYSICAL EXAMINATION: VITAL SIGNS: Blood pressure 147/72. Oxygen saturation 95% on 3 liters nasal cannula. HEENT: Normocephalic, atraumatic. NECK: Supple, no thyromegaly, no jugular venous distention. CARDIOVASCULAR: Regular rate and rhythm, S1, S2. No murmurs, rubs, or gallops. LUNGS: Clear to auscultation bilaterally. ABDOMEN: Obese, nontender and soft, no organomegaly. EXTREMITIES: No cyanosis, clubbing or edema. LABORATORY DATA: WBC is 10. Hemoglobin is 12.6. BUN is 18, creatinine is 0.75. ABG: pH is 7.46, pCO2 is 35, pO2 is 50. Microbiology: Influenza is negative nasal swab. Blood cultures are negati ve. Chest x-ray shows ill-defined patchy left upper lobe nodular opacities and cannot rule out poss ible early cavitation. IMPRESSION: Left upper lobe micronodular airspace disease plus/minus cavitary changes. Some of the se changes were noted on CT chest in November 2015. However, in view of patient's risk factors, conside ration for reactivation tuberculosis is there. RECOMMENDATIONS: 1. Respiratory isolation. 2. Sputum for AFB x3. 3. Will obtain a noncontrast CT chest to better evaluate the left upper lobe disease. 4. Sputum for TB quant gold. 5. serologies. Dictated By: LORRAINE REYNA MD NK/NTS Conf#: [id number] DID#: [id number] CC: JONN MARINO MD;*EndCC*
[2016-06-13 20:13] VITALS: BP 146/67; RESP 20
--- NOTE | 2016-06-13 20:21 | CONS ---
Date/Time of Note Date/Time of Note DATE: 06/13/16 TIME: 20:18 Assessment/Plan Assessment/Plan Chief Complaint/Hosp Course IMPRESSION: LEUKOCYTOSIS REACTIVE SMEAR- PAPA MONITOR BLOOD COUNT CLOSELY ATB-PER PMD ANEMIA COMPENSATED AT PRESENT OBSERVE CLOSELY NO NEEDS FOR TRANSFUSION community-acquired pneumonia. Bronchocentric consolidation, centrilobular nodules, and tree in bud nodularity in the seen throughout the left lung consistent with multifocal bronchiolitis/ bronchopneumonia. There is an associated trace parapneumonic effusion with associated atelectasis ON CT CHEST 7.16 Diabetes mellitus Problems: Consultation Date/Type/Reason Admit Date/Time Jun 08, 2016 at 19:14 Initial Consult Date 06/08/16 Type of Consultation: HEMEONC Reason for Consultation LEUKOCYTOSIS Referring Provider: PEYMAN MARINO MD 24 HR Interval Summary Free Text/Dictation ALL NOTED FELLING BETTER WBC- IMPROVED H/H- LOOKS COMPENSATED Exam/Review of Systems Vital Signs Vitals Vital Signs Date Time Temp Pulse Resp B/P Pulse Ox O2 Delivery O2 Flow Rate FiO2 06/13/16 19:50 64 18 92 Nasal Cannula 3.0 06/13/16 17:02 32 06/13/16 07:31 98.2 147/72 Intake and Output 06/12/16 06/12/16 06/13/16 15:00 23:00 07:00 Intake Total 1510 ml 1200 ml Output Total 600 ml Balance 1510 ml 600 ml Exam Neck: supple Respiratory: clear to auscultation Cardiovascular: regular rate and rhythm Gastrointestinal: soft Musculoskeletal: nl extremities to inspection Extremities: normal pulses Results Result Diagram: 06/11/16 0520 06/13/16 0544 Results 24 hrs Laboratory Tests Test 06/13/16 05:44 Anion Gap 17 H Blood Urea Nitrogen 18 Calcium Level 8.5 Carbon Dioxide Level 30 Chloride Level 102 Creatinine 0.75 Glucose Level 86 Potassium Level 3.8 Sodium Level 145 H Medications Medications Current Medications Amlodipine Besylate (Norvasc) 10 mg DAILY PO Last administered on 06/13/16 08: 39; Admin Dose 10 MG; Start 06/09/16 at 09:00 Aspirin (Halfprin) 81 mg DAILY PO Last administered on 06/13/16 08:39; Admin Dose 81 MG; Start 06/09/16 at 09:00 Cholecalciferol (Vitamin D) 2,000 unit DAILY PO Last administered on 06/13/16 08:37; Admin Dose 2,000 UNIT; Start 06/09/16 at 09:00 Diazepam (Valium) 5 mg BID PRN PO INSOMNIA Last administered on 06/12/16 22:11 ; Admin Dose 5 MG; Start 06/08/16 at 16:00 Gabapentin (Neurontin) 800 mg QID PO Last administered on 06/13/16 13:53; Admin Dose 800 MG; Start 06/08/16 at 17:00 Isosorbide Mononitrate (Imdur) 30 mg DAILY PO Last administered on 06/13/16 08 :39; Admin Dose 30 MG; Start 06/09/16 at 09:00 Metoprolol Tartrate (Lopressor) 25 mg BID PO Last administered on 06/13/16 08: 38; Admin Dose 25 MG; Start 06/08/16 at 21:00 Nitroglycerin (Nitroglycerin (Sl Tab) 0.4 Mg) 0.4 tab [id number] PRN SL CHEST PAIN; Start 06/08/16 at 16:00 Pregabalin (Lyrica) 75 mg DAILY PO Last administered on 06/13/16 10:39; Admin Dose 75 MG; Start 06/09/16 at 09:00 Quetiapine Fumarate (Seroquel) 100 mg HS PO Last administered on 06/12/16 22: 09; Admin Dose 100 MG; Start 06/08/16 at 21:00 Zolpidem Tartrate 10 mg 10 mg HS PRN PO INSOMNIA Last administered on 22:44; Admin Dose 10 MG; Start 06/08/16 at 16:00 Sodium Chloride (NS) 1,000 ml @ 50 mls/hr Q20H IV Last administered on 00:34; Admin Dose 50 MLS/HR; Start 06/08/16 at 15:38 Ondansetron HCl (Zofran Inj) 4 mg Q6H PRN IV NAUSEA AND/OR VOMITING; Start at 16:00 Docusate Sodium (Colace) 100 mg Q12H PRN PO CONSTIPATION; Start 06/08/16 at 16: 00 Magnesium Hydroxide (Milk Of Mag) 30 ml DAILY PRN PO CONSTIPATION; Start at 16:00 Enoxaparin Sodium 40 mg 40 mg DAILY SC Last administered on 06/13/16 08:44; Admin Dose 40 MG; Start 06/09/16 at 09:00 Piperacillin Sod/ Tazobactam Sod (Zosyn 3.375gm/ 100 ml (Pmx)) 100 ml @ 200 mls /hr Q8 IVPB Last administered on 06/13/16 13:53; Admin Dose 200 MLS/HR; Start 06/08/16 at 22:00 Hydralazine HCl (Apresoline) 25 mg Q8 PO Last administered on 06/13/16 13:57; Admin Dose 25 MG; Start 06/11/16 at 22:00 Acetaminophen/ Codeine Phosphate (Tylenol No.3) 1 tab Q6 PRN PO PAIN Last administered on 06/13/16 06:24; Admin Dose 1 TAB; Start 06/12/16 at 22:36 NARINDER WALTERS MD Jun 13, 2016 20:21
[2016-06-13] MEDS: QUETIAPINE 100 MG TAB PO SCH (20:26)
--- NOTE | 2016-06-13 21:55 | RADRPT ---
PROCEDURE: CT Chest without contrast. CLINICAL INDICATION: Cough. Left upper lobe nodular densities. TECHNIQUE: Helical axial sections were obtained through the chest without intravenous contrast enh ancement. Coronal and sagittal reformatted images were obtained from the axial source images. Total exam DLP is 416.77 mGy-cm. CTDIvol is 10.25 mGy. One or more of the following dose reduction tyra hniques were used: Automated exposure control, adjustment of the mA and/or kV according to patient s ize, use of iterative reconstruction technique. COMPARISON: Chest x-ray dated 06/12/2016 which demonstrated a patchy left upper and right lower l obe air space disease. CT scan of the chest dated 12/12/2015 which demonstrated multi focal bronchi olitis in the left lung, previous cholecystectomy, right aortic arch, enlarged pulmonary arteries an d pneumobilia. FINDINGS: As seen previously, previously noted patchy bilateral bronchiolitis is now improved with only mild d isease in the left upper lobe, lingula, and left lower lobe. The right lung is clear. There is no pulmonary nodule or mass lesion. There is no mediastinal or hilar lymphadenopathy or mass. There is no axillary, supraclavicular, or internal mammary lymphadenopathy. 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 Multiple surgical clips are present from previous thyroidectomy. The heart size is normal. There is coronary artery calcification. There is a stent proximally in t he right coronary artery. There is no pleural effusion or pericardial effusion. Images through the upper abdomen demonstrate pneumobilia and previous cholecystectomy. The visualiz ed portions of the liver, spleen, and adrenals are otherwise normal. There are mild degenerative changes of the spine. There is no fracture or lytic lesion. IMPRESSION: 1. Bilateral patchy bronchiolitis is improved with only mild disease remaining in the left lung. 2. 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 3. Surgical clips from previous thyroidectomy. 4. Coronary artery calcification. 5. Stent in the proximal right coronary artery. 6. Pneumobilia. Previous cholecystectomy. 7. Mild degenerative changes of the spine. RPTAT: QQ .Hua Moctezuma MD, Date Time Electronically viewed and signed by .Hua Moctezuma MD, on 06/13/2016 21:55 .R/
[2016-06-13] MEDS: ZOLPIDEM 5 MG TAB PO PRN (21:58)
[2016-06-13] MEDS: DIAZEPAM 5 MG TAB PO PRN (22:01)
[2016-06-14] MEDS: ALBUTEROL/IPRATROPIUM (NEB) 3 ML AMP HHN SCH ×3 (02:00→15:03)
[2016-06-14] MEDS: PIPER-TAZO 3.375 GM IV (PMX) 100 ML IVPB SCH ×2 (05:37→13:31)
[2016-06-14] MEDS: SOD CHLORIDE 0.9% 1,000 ML IV SCH (06:33)
[2016-06-14 07:59] VITALS: BP 169/78; RESP 19
[2016-06-14] MEDS: CHOLECALCIFEROL 2,000 UNIT CAP PO SCH (08:55)
[2016-06-14] MEDS: LEVOTHYROXINE 125 MCG TAB PO SCH (08:55)
[2016-06-14] MEDS: GABAPENTIN 400 MG CAP PO SCH ×3 (08:55→17:52)
[2016-06-14] MEDS: AMLODIPINE 10 MG TAB PO SCH (08:56)
[2016-06-14] MEDS: ISOSORBIDE MONONITRATE(SR)30 MG TAB PO SCH (08:56)
[2016-06-14] MEDS: ASPIRIN (EC) 81 MG TAB PO SCH (08:56)
[2016-06-14] MEDS: METOPROLOL 25 MG TAB PO SCH (08:57)
[2016-06-14] MEDS: ENOXAPARIN 40 MG/0.4 ML SYG SC SCH (08:59)
[2016-06-14] MEDS: PREGABALIN 75 MG CAP PO SCH (09:08)
[2016-06-14] MEDS: PANTOPRAZOLE (EC) 40 MG TAB PO SCH (09:08)
--- NOTE | 2016-06-14 12:37 | CONS ---
Date/Time of Note Date/Time of Note DATE: 06/14/16 TIME: 12:35 Consult Date/Type/Reason Admit Date/Time Jun 08, 2016 at 19:14 Initial Consult Date 06/08/16 Type of Consultation: pulmonary Ordering Provider: PEYMAN MARINO MD Subjective Patient remained stable no new events denies any cough shortness of breath no fever no chills Leukocytosis has resolved Chest CT was performed shows left lower lobe infiltrate, no cavitary disease no significant lymphadenopathy Objective Vital Signs Date Time Temp Pulse Resp B/P Pulse Ox O2 Delivery O2 Flow Rate FiO2 06/14/16 07:59 98.1 62 19 169/78 90 06/14/16 07:42 Nasal Cannula 3.0 32 Intake and Output 06/13/16 06/13/16 06/14/16 15:00 23:00 07:00 Intake Total 750 ml 820 ml 400 ml Balance 750 ml 820 ml 400 ml GENERAL: Elderly Telugu lady comfortable at rest no acute distress currently afebrile VITAL SIGNS: per chart NECK: Supple. No JVD or lymphadenopathy. CARDIAC EXAM: S1, S2. No added sounds or murmurs. CHEST: clear bilaterally, No added sounds, rales or wheezes ABDOMEN: Soft, nontender. No guarding or rebound. EXTREMITIES: No cyanosis, clubbing or edema. NEUROLOGIC: Generalized weakness. No focal deficits. Results/Medications Result Diagram: 06/11/16 0520 06/13/16 0544 Medications Current Medications Amlodipine Besylate (Norvasc) 10 mg DAILY PO Last administered on 06/14/16 08: 56; Admin Dose 10 MG; Start 06/09/16 at 09:00 Aspirin (Halfprin) 81 mg DAILY PO Last administered on 06/14/16 08:56; Admin Dose 81 MG; Start 06/09/16 at 09:00 Cholecalciferol (Vitamin D) 2,000 unit DAILY PO Last administered on 06/14/16 08:55; Admin Dose 2,000 UNIT; Start 06/09/16 at 09:00 Diazepam (Valium) 5 mg BID PRN PO INSOMNIA Last administered on 06/13/16 22:01 ; Admin Dose 5 MG; Start 06/08/16 at 16:00 Gabapentin (Neurontin) 800 mg QID PO Last administered on 06/14/16 08:55; Admin Dose 800 MG; Start 06/08/16 at 17:00 Isosorbide Mononitrate (Imdur) 30 mg DAILY PO Last administered on 06/14/16 08 :56; Admin Dose 30 MG; Start 06/09/16 at 09:00 Metoprolol Tartrate (Lopressor) 25 mg BID PO Last administered on 06/14/16 08: 57; Admin Dose 25 MG; Start 06/08/16 at 21:00 Nitroglycerin (Nitroglycerin (Sl Tab) 0.4 Mg) 0.4 tab [id number] PRN SL CHEST PAIN; Start 06/08/16 at 16:00 Pregabalin (Lyrica) 75 mg DAILY PO Last administered on 06/14/16 09:08; Admin Dose 75 MG; Start 06/09/16 at 09:00 Quetiapine Fumarate (Seroquel) 100 mg HS PO Last administered on 06/13/16 20: 26; Admin Dose 100 MG; Start 06/08/16 at 21:00 Zolpidem Tartrate 10 mg 10 mg HS PRN PO INSOMNIA Last administered on 21:58; Admin Dose 10 MG; Start 06/08/16 at 16:00 Sodium Chloride (NS) 1,000 ml @ 50 mls/hr Q20H IV Last administered on 06:33; Admin Dose 50 MLS/HR; Start 06/08/16 at 15:38 Ondansetron HCl (Zofran Inj) 4 mg Q6H PRN IV NAUSEA AND/OR VOMITING; Start at 16:00 Docusate Sodium (Colace) 100 mg Q12H PRN PO CONSTIPATION; Start 06/08/16 at 16: 00 Magnesium Hydroxide (Milk Of Mag) 30 ml DAILY PRN PO CONSTIPATION; Start at 16:00 Enoxaparin Sodium 40 mg 40 mg DAILY SC Last administered on 06/14/16 08:59; Admin Dose 40 MG; Start 06/09/16 at 09:00 Piperacillin Sod/ Tazobactam Sod (Zosyn 3.375gm/ 100 ml (Pmx)) 100 ml @ 200 mls /hr Q8 IVPB Last administered on 06/14/16 05:37; Admin Dose 200 MLS/HR; Start 06/08/16 at 22:00 Hydralazine HCl (Apresoline) 25 mg Q8 PO Last administered on 06/14/16 05:38; Admin Dose 25 MG; Start 06/11/16 at 22:00 Acetaminophen/ Codeine Phosphate (Tylenol No.3) 1 tab Q6 PRN PO PAIN Last administered on 06/13/16 20:30; Admin Dose 1 TAB; Start 06/12/16 at 22:36 Assessment/Plan Chief Complaint/Hosp Course Assessment 1. Likely community acquired pneumonia which is clinically resolving with current antibiotics 2. No radiographic evidence of tuberculosis. Plan 1. Complete antibiotics recommended quite pneumonia 2. I would stop her TB workup unlikely this is reactivation. 3. Follow-up with [facility] and primary care physician office. Before discharge planning okay from pulmonary standpoint. Problems: BUFFY MEZA MD, [facility] Jun 14, 2016 12:37
--- NOTE | 2016-06-14 16:07 | PN ---
Date/Time of Note Date/Time of Note DATE: 06/14/16 TIME: 16:07 Assessment/Plan VTE Prophylaxis VTE Prophylaxis Intervention: other Lines/Catheters IV [facility] Peripheral IV Urinary Cath still in place: No Assessment/Plan Chief Complaint/Hosp Course IMPRESSION: 1. Possible community-acquired pneumonia. 2. htn 3. Diabetes mellitus plan per order bp meds pul dr lomeli to see home soon Problems: Subjective 24 Hr Interval Summary Respiratory: no complaints Cardiovascular: no complaints Exam/Review of Systems Vital Signs Vitals Vital Signs Date Time Temp Pulse Resp B/P Pulse Ox O2 Delivery O2 Flow Rate FiO2 06/14/16 15:09 68 16 96 Nasal Cannula 3.0 32 06/14/16 07:59 98.1 169/78 Intake and Output 06/13/16 06/13/16 06/14/16 15:00 23:00 07:00 Intake Total 750 ml 820 ml 400 ml Balance 750 ml 820 ml 400 ml Exam Neck: supple Respiratory: clear to auscultation Cardiovascular: regular rate and rhythm Gastrointestinal: soft Musculoskeletal: nl extremities to inspection Results Result Diagram: 06/11/16 0520 06/13/16 0544 Medications Medications Current Medications Amlodipine Besylate (Norvasc) 10 mg DAILY PO Last administered on 06/14/16 08: 56; Admin Dose 10 MG; Start 06/09/16 at 09:00 Aspirin (Halfprin) 81 mg DAILY PO Last administered on 06/14/16 08:56; Admin Dose 81 MG; Start 06/09/16 at 09:00 Cholecalciferol (Vitamin D) 2,000 unit DAILY PO Last administered on 06/14/16 08:55; Admin Dose 2,000 UNIT; Start 06/09/16 at 09:00 Diazepam (Valium) 5 mg BID PRN PO INSOMNIA Last administered on 06/13/16 22:01 ; Admin Dose 5 MG; Start 06/08/16 at 16:00 Gabapentin (Neurontin) 800 mg QID PO Last administered on 06/14/16 13:31; Admin Dose 800 MG; Start 06/08/16 at 17:00 Isosorbide Mononitrate (Imdur) 30 mg DAILY PO Last administered on 06/14/16 08 :56; Admin Dose 30 MG; Start 06/09/16 at 09:00 Metoprolol Tartrate (Lopressor) 25 mg BID PO Last administered on 06/14/16 08: 57; Admin Dose 25 MG; Start 06/08/16 at 21:00 Nitroglycerin (Nitroglycerin (Sl Tab) 0.4 Mg) 0.4 tab [id number] PRN SL CHEST PAIN; Start 06/08/16 at 16:00 Pregabalin (Lyrica) 75 mg DAILY PO Last administered on 06/14/16 09:08; Admin Dose 75 MG; Start 06/09/16 at 09:00 Quetiapine Fumarate (Seroquel) 100 mg HS PO Last administered on 06/13/16 20: 26; Admin Dose 100 MG; Start 06/08/16 at 21:00 Zolpidem Tartrate 10 mg 10 mg HS PRN PO INSOMNIA Last administered on 21:58; Admin Dose 10 MG; Start 06/08/16 at 16:00 Sodium Chloride (NS) 1,000 ml @ 50 mls/hr Q20H IV Last administered on 06:33; Admin Dose 50 MLS/HR; Start 06/08/16 at 15:38 Ondansetron HCl (Zofran Inj) 4 mg Q6H PRN IV NAUSEA AND/OR VOMITING; Start at 16:00 Docusate Sodium (Colace) 100 mg Q12H PRN PO CONSTIPATION; Start 06/08/16 at 16: 00 Magnesium Hydroxide (Milk Of Mag) 30 ml DAILY PRN PO CONSTIPATION; Start at 16:00 Enoxaparin Sodium 40 mg 40 mg DAILY SC Last administered on 06/14/16 08:59; Admin Dose 40 MG; Start 06/09/16 at 09:00 Piperacillin Sod/ Tazobactam Sod (Zosyn 3.375gm/ 100 ml (Pmx)) 100 ml @ 200 mls /hr Q8 IVPB Last administered on 06/14/16 13:31; Admin Dose 200 MLS/HR; Start 06/08/16 at 22:00 Hydralazine HCl (Apresoline) 25 mg Q8 PO Last administered on 06/14/16 13:34; Admin Dose 25 MG; Start 06/11/16 at 22:00 Acetaminophen/ Codeine Phosphate (Tylenol No.3) 1 tab Q6 PRN PO PAIN Last administered on 06/13/16t 20:30; Admin Dose 1 TAB; Start 06/12/16 at 22:36 PEYMAN MARINO MD Jun 14, 2016 16:07
--- NOTE | 2016-06-14 18:49 | CONS ---
Date/Time of Note Date/Time of Note DATE: 06/14/16 TIME: 18:47 Assessment/Plan Assessment/Plan Chief Complaint/Hosp Course IMPRESSION: LEUKOCYTOSIS REACTIVE SMEAR- NEG MONITOR BLOOD COUNT CLOSELY ATB-PER PMD COUNT IMPROVED ANEMIA COMPENSATED AT PRESENT OBSERVE CLOSELY NO NEEDS FOR TRANSFUSION community-acquired pneumonia. Bronchocentric consolidation, centrilobular nodules, and tree in bud nodularity in the seen throughout the left lung consistent with multifocal bronchiolitis/ bronchopneumonia. There is an associated trace parapneumonic effusion with associated atelectasis ON CT CHEST 7.16 Diabetes mellitus OK TO DC Problems: Consultation Date/Type/Reason Admit Date/Time Jun 08, 2016 at 19:14 Initial Consult Date 06/08/16 Type of Consultation: HEMEON Referring Provider: PEYMAN MARINO MD 24 HR Interval Summary Free Text/Dictation ALL NOTED COUNT IMPROVED NO BLEEDING SEEN BY PULM CLEARED FOR DC Exam/Review of Systems Vital Signs Vitals Vital Signs Date Time Temp Pulse Resp B/P Pulse Ox O2 Delivery O2 Flow Rate FiO2 06/14/16 16:49 3.0 06/14/16 15:09 68 16 96 Nasal Cannula 32 06/14/16 07:59 98.1 169/78 Intake and Output 06/13/16 06/13/16 06/14/16 15:00 23:00 07:00 Intake Total 750 ml 820 ml 400 ml Balance 750 ml 820 ml 400 ml Exam VITAL SIGNS: per chart NECK: Supple. No JVD or lymphadenopathy. CARDIAC EXAM: S1, S2. No added sounds or murmurs. CHEST: clear bilaterally, No added sounds, rales or wheezes ABDOMEN: Soft, nontender. No guarding or rebound. EXTREMITIES: No cyanosis, clubbing or edema. NEUROLOGIC: Generalized weakness. No focal deficits. Results Result Diagram: 06/11/16 0520 06/13/16 0544 Medications Medications Current Medications Amlodipine Besylate (Norvasc) 10 mg DAILY PO Last administered on 06/14/16 08: 56; Admin Dose 10 MG; Start 06/09/16 at 09:00 Aspirin (Halfprin) 81 mg DAILY PO Last administered on 06/14/16 08:56; Admin Dose 81 MG; Start 06/09/16 at 09:00 Cholecalciferol (Vitamin D) 2,000 unit DAILY PO Last administered on 06/14/16 08:55; Admin Dose 2,000 UNIT; Start 06/09/16 at 09:00 Diazepam (Valium) 5 mg BID PRN PO INSOMNIA Last administered on 06/13/16 22:01 ; Admin Dose 5 MG; Start 06/08/16 at 16:00 Gabapentin (Neurontin) 800 mg QID PO Last administered on 06/14/16 17:52; Admin Dose 800 MG; Start 06/08/16 at 17:00 Isosorbide Mononitrate (Imdur) 30 mg DAILY PO Last administered on 06/14/16 08 :56; Admin Dose 30 MG; Start 06/09/16 at 09:00 Metoprolol Tartrate (Lopressor) 25 mg BID PO Last administered on 06/14/16 08: 57; Admin Dose 25 MG; Start 06/08/16 at 21:00 Nitroglycerin (Nitroglycerin (Sl Tab) 0.4 Mg) 0.4 tab [id number] PRN SL CHEST PAIN; Start 06/08/16 at 16:00 Pregabalin (Lyrica) 75 mg DAILY PO Last administered on 06/14/16 09:08; Admin Dose 75 MG; Start 06/09/16 at 09:00 Quetiapine Fumarate (Seroquel) 100 mg HS PO Last administered on 06/13/16 20: 26; Admin Dose 100 MG; Start 06/08/16 at 21:00 Zolpidem Tartrate 10 mg 10 mg HS PRN PO INSOMNIA Last administered on 21:58; Admin Dose 10 MG; Start 06/08/16 at 16:00 Sodium Chloride (NS) 1,000 ml @ 50 mls/hr Q20H IV Last administered on 06:33; Admin Dose 50 MLS/HR; Start 06/08/16 at 15:38 Ondansetron HCl (Zofran Inj) 4 mg Q6H PRN IV NAUSEA AND/OR VOMITING; Start at 16:00 Docusate Sodium (Colace) 100 mg Q12H PRN PO CONSTIPATION; Start 06/08/16 at 16: 00 Magnesium Hydroxide (Milk Of Mag) 30 ml DAILY PRN PO CONSTIPATION; Start at 16:00 Enoxaparin Sodium 40 mg 40 mg DAILY SC Last administered on 06/14/16 08:59; Admin Dose 40 MG; Start 06/09/16 at 09:00 Piperacillin Sod/ Tazobactam Sod (Zosyn 3.375gm/ 100 ml (Pmx)) 100 ml @ 200 mls /hr Q8 IVPB Last administered on 06/14/16 13:31; Admin Dose 200 MLS/HR; Start 06/08/16 at 22:00 Hydralazine HCl (Apresoline) 25 mg Q8 PO Last administered on 06/14/16 13:34; Admin Dose 25 MG; Start 06/11/16 at 22:00 Acetaminophen/ Codeine Phosphate (Tylenol No.3) 1 tab Q6 PRN PO PAIN Last administered on 06/13/16 20:30; Admin Dose 1 TAB; Start 06/12/16 at 22:36 NARINDER WALTERS MD Jun 14, 2016 18:49
--- NOTE | 2016-06-15 22:08 | QN ---
Documentation Comment [id number] PEYMAN MARINO MD Jun 15, 2016 22:08
--- NOTE | 2016-06-16 00:52 | DS ---
DATE OF ADMISSION: 06/08/2016 DATE OF DISCHARGE: 06/14/2016 HOSPITAL COURSE: The patient was admitted with diagnosis of community-acquired pneumonia, diabetes mellitus. The patient also was seen by Dr. cerrato_ who knows this patient very well for anemia. The patient was seen by Dr. Vincent Danielson in consultation. Initially placed on isolation, but Dr. Danielson discontinued that and there was no evidence of tuberculosis per Dr. Danielson. The patient was cleared to be discharged home. DISCHARGE DIAGNOSES: Include: 1. Community acquired pneumonia. 2. Anemia. 3. Leukocytosis. 4. Hypernatremia. The patient's other diagnoses include: 1. The patient has diabetes mellitus. 2. Neuropathy. 3. Anxiety. 4. Coronary artery disease. 5. Hypertension. DISCHARGE MEDICATIONS: To continue: 1. Albuterol. 2. Continue on aspirin. 3. Amlodipine. 4. Diazepam. 5. 6. Gabapentin. 7. Ibuprofen. 8. Isosorbide. 9. Levothyroxine. 10. Metoprolol. 11. Nitroglycerin. 12. Protonix. 13. Seroquel. 14. Ambien. The patient will follow with PCP, Dr. Ramos, as an outpatient. Further workup as an outpatient. Dictated By: PEYMAN LATHAM/BRIAN Conf#: [id number] DID#: [id number] MTDD
[2016-06-16 18:41] LABS: TB-NIL <0.00 IU/mL
== END 2016-06-14 19:05 | disposition home or self-care (01) | DRG 194 ==
LOC: E/R 11:01 → TEL 18:46 → MS2 06-10 23:23
PROVIDERS: ADMIT Internal Medicine Nephrology; ATTEND Internal Medicine Nephrology
DX: J18.9 Pneumonia, unspecified organism (principal); E87.0 Hyperosmolality and hypernatremia; E11.9 Type 2 diabetes mellitus without complications; D64.9 Anemia, unspecified; I10 Essential (primary) hypertension; E03.9 Hypothyroidism, unspecified; E78.5 Hyperlipidemia, unspecified; F17.200 Nicotine dependence, unspecified, uncomplicated; D72.829 Elevated white blood cell count, unspecified
CPT/HCPCS: 36415; 36600; 71010; 71020; 71250; 80048; 80053; 82803; 83605; 84484; 85025; 85610; 85730; 86480; 86635; 87040; 87116; 87400; 90686; 93005; 94640; 94664; 96374; 96375; J0692; J1650; J2543; J2930; J3370; J7030; J7050

== ENCOUNTER 2018-09-07 17:52 | Inpatient (IN) | payer MEDICARE, OTHER ==
[~2018-09-07] VITALS: Ht 162.6 cm; Wt 74.4 kg
[~2018-09-07 17:52] MED LIST changes: +ALBU8.5H8 INH; +ASPI-1046 PO; -ASPI-664 PO; +IBUP-1542 PO; -ISOS30TA18 PO; +ISOS30TA20 PO; +LEVO125T71 PO; +LYR75 PO; +NITR0.4T32 SL; -NITR0.4T6 SL; -POTA20TA96 PO
[2018-09-07] MEDS ORDERED: SOD CHLORIDE 0.9% 500 ML IV STA (18:39)
[2018-09-07] MEDS ORDERED: IPRATROPIUM (NEB) 0.5 MG/2.5 ML AMP INH STA (18:39)
[2018-09-07] MEDS ORDERED: METHYLPREDNISOLONE 125 MG INJ IV STA (18:39)
[2018-09-07] MEDS ORDERED: ALBUTEROL 0.5% (NEB) 2.5 MG/0.5 ML AMP INH STA (18:39)
--- NOTE | 2018-09-07 18:39 | ERD ---
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 Hx: COPD. On oxygen 2L HPI 78-year-old woman brought in by family members for shortness of breath, recent wheezing, generalized weakness x2 days. Daughter who is at the bedside states her urine was malodorous and cloudy this morning when she checked it. She has had no fevers or chills, no vomiting or diarrhea, no loss of consciousness. She has been coughing more frequently over the last few days and has had increased chest pain with cough. ROS All systems reviewed and are negative except as per history of present illness. Medications Home Meds Active Scripts Albuterol Sulfate* (Proair HFA*) 8.5 Gm Hfa.aer.ad, 2 PUFF INH Q6, #1 INHALER Prov:PEYMAN MAIRNO MD 06/12/16 Reported Medications Pregabalin* (Lyrica*) 75 Mg Capsule, 75 MG PO DAILY, CAP 06/08/16 Ibuprofen* (Motrin*) 600 Mg Tab, 600 MG PO TID, TAB 06/08/16 Levothyroxine Sodium* (Levoxyl*) 125 Mcg Tablet, 125 MCG PO BEFORE BREAKFAST, #30 TAB 06/08/16 Cholecalciferol* (Vitamin D3*) 2,000 Unit Cap, 2000 UNIT PO DAILY, CAP 12/09/15 Edoxaban Tosylate (Savaysa) 30 Mg Tablet, 30 MG PO DAILY, TAB 12/09/15 Albuterol/Ipratropium* (Combivent Respimat*) 20-100 Mcg/Inh - 4 Gm Aer.w.adap, 1 PUFF INHALATION QID, #1 INHALER 12/09/15 Amlodipine Besylate* (Amlodipine Besylate*) 10 Mg Tablet, 10 MG PO DAILY, TAB 11/19/14 Diazepam* (Diazepam*) 5 Mg Tablet, 5 MG PO BID PRN for INSOMNIA, TAB 11/19/14 Zolpidem Tartrate* (Zolpidem Tartrate*) 10 Mg Tablet, 10 MG PO HS PRN for INSOMNIA, TAB 11/19/14 Quetiapine Fumarate* (Quetiapine Fumarate*) 100 Mg Tablet, 100 MG PO HS, TAB 11/19/14 Metoprolol Tartrate* (Lopressor*) 25 Mg Tab, 25 MG PO BID, TAB 7/7/15 Pantoprazole* (Pantoprazole*) 40 Mg Tablet.dr, 40 MG PO AC BREAKFAST, TAB 11/19/14 Nitroglycerin* (Nitroglycerin* SL) 0.4 Mg Tab.subl, 0.4 MG SL Q5MIN PRN for CHEST PAIN, BOTTLE 11/19/14 Isosorbide Dinitrate* (Isosorbide Dinitrate*) 30 Mg Tablet, 30 MG PO DAILY, TAB 08/16/14 Acetaminophen-Codeine* (Acetaminophen-Cod #3*) 300-30 Mg Tab, 1 TAB PO Q8 PRN for PAIN, TAB 06/24/14 Gabapentin* (Neurontin*) 800 Mg Tablet, 800 MG PO QID, TAB 06/24/14 Aspirin* (Aspirin* (EC)) 81 Mg Tablet.dr, 81 MG PO DAILY, TAB 06/24/14 Allergies Allergies: Coded Allergies: Iodinated Contrast- Oral and IV Dye (Verified Allergy, Mild, 04/16/18) PMhx/Soc History of UTIs and urinary incontinence, anemia, hypothyroidism, obesity, COPD, diabetes mellitus type 2, psoriasis, dementia History of Surgery: Yes (Cholecystectomy, appendectomy, thyroid surgery) Anesthesia Reaction: No Hx Neurological Disorder: No Hx Respiratory Disorders: Yes (COPD, asthma) Hx Cardiac Disorders: Yes (HTN) Hx Psychiatric Problems: No Hx Miscellaneous Medical Probl: Yes ( angina, CAD, diabetes, GERD, high cholesterol, hypothyroid) Hx Tobacco Use: Yes FmHx Family History: No diabetes Physical Exam Vitals Vital Signs Date Temp Pulse Resp B/P (MAP) Pulse Ox O2 O2 Flow FiO2 Time Delivery Rate 09/07/18 Nasal 2 18:57 Cannula 09/07/18 83 22 94 Nasal 3.0 18:55 Cannula 09/07/18 99.0 95 22 144/87 89 18:03 (106) Physical Exam Const: No acute distress, afebrile Head: Atraumatic Eyes: Normal Conjunctiva ENT: Normal External Ears, Nose and Mouth. Neck: Full range of motion. No meningismus. Resp: Poor breath sounds bilaterally, dense wheezes, no crackles or stridor Cardio: Regular rate and rhythm, no murmurs Abd: Soft, non tender, non distended. Skin: No petechiae or rashes Back: No midline or flank tenderness Ext: No cyanosis, or edema, calves bilaterally symmetrical Neur: Awake and alert x3, no focal deficits or facial asymmetry Psych: Normal Mood and Affect Result Diagram: 09/07/18 1845 09/07/18 1845 Results 24 hrs Laboratory Tests Test 09/07/18 18:45 09/07/18 19:17 White Blood Count 16.3 10^3/ul Red Blood Count 3.81 10^6/ul Hemoglobin 12.3 g/dl Hematocrit 37.2 % Mean Corpuscular Volume 97.6 fl Mean Corpuscular Hemoglobin 32.3 pg Mean Corpuscular Hemoglobin Concent 33.1 g/dl Red Cell Distribution Width 13.1 % Platelet Count 230 10^3/UL Mean Platelet Volume 11.7 fl Immature Granulocytes % 0.500 % Neutrophils % 81.5 % Lymphocytes % 11.5 % Monocytes % 5.7 % Eosinophils % 0.4 % Basophils % 0.4 % Nucleated Red Blood Cells % 0.0 /100WBC Immature Granulocytes # 0.080 10^3/ul Neutrophils # 13.3 10^3/ul Lymphocytes # 1.9 10^3/ul Monocytes # 0.9 10^3/ul Eosinophils # 0.1 10^3/ul Basophils # 0.1 10^3/ul Nucleated Red Blood Cells # 0.0 10^3/ul Sodium Level 144 mmol/L Potassium Level 3.6 mmol/L Chloride Level 107 mmol/L Carbon Dioxide Level 23 mmol/L Anion Gap 14 Blood Urea Nitrogen 18 mg/dl Creatinine 0.87 mg/dl Est Glomerular Filtrat Rate mL/min mL/min Glucose Level 107 mg/dl Calcium Level 6.8 mg/dl Total Bilirubin 0.4 mg/dl Direct Bilirubin 0.00 mg/dl Indirect Bilirubin 0.4 mg/dl Aspartate Amino Transf (AST/SGOT) 24 IU/L Alanine Aminotransferase (ALT/SGPT) 29 IU/L Alkaline Phosphatase 51 IU/L Troponin I < 0.012 ng/ml B-Type Natriuretic Peptide 158 PG/ML Total Protein 7.5 g/dl Albumin 4.3 g/dl Globulin 3.20 g/dl Albumin/Globulin Ratio 1.34 Lipase 36 U/L Urine Color YELLOW Urine Clarity SLIGHTLY CLOUDY Urine pH 7.0 Urine Specific [place] 1.008 Urine Ketones NEGATIVE mg/dL Urine Nitrite POSITIVE mg/dL Urine Bilirubin NEGATIVE mg/dL Urine Urobilinogen NEGATIVE mg/dL Urine Leukocyte Esterase 3+ Carito/ul Urine Microscopic RBC 2 /HPF Urine Microscopic WBC 165 /HPF Urine Bacteria FEW /HPF Urine Yeast (Budding) FEW /HPF Urine Hemoglobin 1+ mg/dL Urine Glucose NEGATIVE mg/dL Urine Total Protein NEGATIVE mg/dl Current Medications Medications Dose Sig/Alonso Start Time Status Last (Trade) Ordered Route PRN Stop Time Admin Dose Reason Admin Albuterol 10 mg ONCE STAT 09/07/18 DC 09/07/18 (Proventil INH 18:39 18:53 0.5% (Neb)) 09/07/18 18:42 Ipratropium 1 mg ONCE STAT 09/07/18 DC 09/07/18 [place] INH 18:39 18:53 (Atrovent 09/07/18 18:42 0.02% (Neb)) 125 mg ONCE STAT 09/07/18 DC 09/07/18 Methylprednis IV 18:39 18:53 olone Sodium 09/07/18 18:42 Succinate (Solu-Medrol) Sodium 500 ml @ Q1H STAT 09/07/18 DC 09/07/18 Chloride 500 mls/hr IV 18:39 18:53 09/07/18 19:38 Ceftriaxone 50 ml @ ONCE ONCE 09/07/18 UNV Sodium 100 mls/hr IVPB 20:00 09/07/18 20:29 Procedures/MDM IV line was established patient was placed on monitoring coordinator rhythm strip revealed a sinus rhythm at about 90 bpm with upright P and T waves. Patient was afebrile EKG performed, read by me revealed a normal sinus rhythm at 94 bpm, left axis deviation, narrow QRS complex, no concerning ST elevations or depressions noted 1 view chest x-ray performed, read by me reveals a mass in the right hilum, no acute infiltrates, no pneumothorax. For wheezing I administered albuterol 10 mg via nebulizer, ipratropium 1 mg via nebulizer, and methylprednisolone 125 mg IV x1 Urine analysis was positive for infection with nitrites and leukocytes. Administered 500 cc normal saline IV and ceftriaxone 1 g IV. CBC reveals a mild leukocytosis of 16 most likely secondary to chronic glucocorticoid use, electrolytes reveal mild dehydration, liver function tests normal, troponin negative Patient is without complaints of chest pain at this time and vital signs are within normal limits although given the recent weakness, dehydration, and COPD exacerbation she will be admitted to telemetry setting for continued medical management and antibiotics. Departure Diagnosis: Primary Impression: COPD with acute exacerbation Additional Impressions: Acute UTI Weakness Condition: AZALEA Koch MD Sep 07, 2018 18:39
[2018-09-07] MEDS ORDERED: CEFTRIAXONE 1 GM/50 ML (PMX) 50 ML IVPB ONE (20:00)
[2018-09-07] MEDS ORDERED: ERGO500013 PO (20:22)
[2018-09-07] MEDS ORDERED: FER325 PO (20:22)
[2018-09-07] MEDS ORDERED: ACET1TAB40 PO (20:23)
[2018-09-07] MEDS ORDERED: IBUP-1542 PO (20:24)
[2018-09-07] MEDS ORDERED: LEVO125T PO (20:24)
[2018-09-07] MEDS ORDERED: AMLO-147 PO (20:24)
[2018-09-07] MEDS ORDERED: ASPI-817 PO (20:25)
[2018-09-07] MEDS ORDERED: ZOLP10TA5 PO (20:25)
[2018-09-07] MEDS ORDERED: PANT40TA4 PO (20:26)
[2018-09-07] MEDS ORDERED: ISOS30TA67 PO (20:26)
[2018-09-07] MEDS ORDERED: ATOR40TA68 PO (20:26)
[2018-09-07] MEDS ORDERED: QUET100T PO (20:27)
[2018-09-07] MEDS ORDERED: METO-448 PO (20:27)
[2018-09-07] MEDS ORDERED: SOLI10TA2 PO (20:28)
[2018-09-07] MEDS ORDERED: IPRA4AER INHALATION (20:29)
[2018-09-07] MEDS ORDERED: RIVA10TA PO (20:29)
[2018-09-07] MEDS ORDERED: ALBU2.5V3 NEB (20:30)
[2018-09-07] MEDS ORDERED: GABA-528 PO (20:36)
[2018-09-07] MEDS ORDERED: CHOL200056 PO (20:37)
[2018-09-07] MEDS ORDERED: LORAZEPAM 2 MG INJ IV ONE (23:30)
[2018-09-07] MEDS ORDERED: QUETIAPINE 100 MG TAB PO ONE (23:30)
[2018-09-08] MEDS ORDERED: METHYLPREDNISOLONE 125 MG INJ IV ONE ×2 (04:00→23:00)
[2018-09-08] MEDS: ZOLPIDEM 5 MG TAB PO PRN ×2 (04:40→21:58)
[2018-09-08 14:29] VITALS: Ht 162.6 cm; Wt 74.4 kg
[2018-09-08 14:57] VITALS: BP 138/81; PULSE 78; RESP 18
--- NOTE | 2018-09-08 16:52 | HP ---
Date/Time of Note Date/Time of Note DATE: 09/08/18 TIME: 16:51 Assessment/Plan VTE Prophylaxis SCD applied (from Nsg): No SCD contraindicated: other (on.) Pharmacological prophylaxis: LMWH Lines/Catheters IV Catheter Type (from Nrsg): [place] [employer] line still needed: No Urinary Cath still in place: Yes ([facility]ACED IN ER) Reason Cath still needed: other (indicate) (Unable to hold the urine.) Assessment/Plan Assessment/Plan 1. Urinary tract infection. Urinary incontinence. Sensation during urination getting worse last 3 -4 days. 2, Chronic obstructive pulmonary disease exacerbation-worse comparing with yesterday.. 3. Wheezing getting worse on and off. 4. Anxiety depression 5. History of diabetes type 2, now better controlled. 6. Lactic acidosis- mild. 7. Hypothyroidism. Decrease the dose of levothyroxine. Previous dose was 200, came down to 150 mcg now on 75-100 on and off. 8. History of gastritis and gastroesophageal reflux disease. Continue Protonix. 9. Psoriasis. 10. Dyslipidemia. 11. Memory impairment. 12. Sleeplessness. 13. 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 14. Upon availability of more data, we will add to current report. 15. lbp 16.Very low mg and iron levels 17. Suspect multidrug abuse mainly sleeping pills and Tylenol 3. 18. On and off agitation dissatisfaction noncompliance to treatment. 19. Hypocalcemia 20. Glossalgia 21. Osteoarthritis of multiple joints 22. Severe constipation 23. Malabsorption and intolerance of some foods mainly to the milk products 24. Anxiety frustration dissatisfaction generalized body ache being unable to sleep last night. Result Diagram: 09/07/18184409/07/181844 Results 24hrs Laboratory Tests Test 09/07/18 18:45 09/07/18 19:17 White Blood Count 16.3 #H Red Blood Count 3.81 L Hemoglobin 12.3 Hematocrit 37.2 Mean Corpuscular Volume 97.6 Mean Corpuscular Hemoglobin 32.3 Mean Corpuscular Hemoglobin Concent 33.1 Red Cell Distribution Width 13.1 Platelet Count 230 Mean Platelet Volume 11.7 H Immature Granulocytes % 0.500 H Neutrophils % 81.5 H Lymphocytes % 11.5 L Monocytes % 5.7 Eosinophils % 0.4 Basophils % 0.4 Nucleated Red Blood Cells % 0.0 Immature Granulocytes # 0.080 H Neutrophils # 13.3 H Lymphocytes # 1.9 Monocytes # 0.9 Eosinophils # 0.1 Basophils # 0.1 Nucleated Red Blood Cells # 0.0 Sodium Level 144 Potassium Level 3.6 Chloride Level 107 Carbon Dioxide Level 23 Anion Gap 14 H Blood Urea Nitrogen 18 Creatinine 0.87 Est Glomerular Filtrat Rate mL/min Glucose Level 107 Calcium Level 6.8 L Total Bilirubin 0.4 Direct Bilirubin 0.00 Indirect Bilirubin 0.4 Aspartate Amino Transf (AST/SGOT) 24 Alanine Aminotransferase (ALT/SGPT) 29 Alkaline Phosphatase 51 Troponin I < 0.012 B-Type Natriuretic Peptide 158 Total Protein 7.5 Albumin 4.3 Globulin 3.20 Albumin/Globulin Ratio 1.34 Lipase 36 Urine Color YELLOW Urine Clarity SLIGHTLY CLOUDY A Urine pH 7.0 Urine Specific [place] 1.008 Urine Ketones NEGATIVE Urine Nitrite POSITIVE A Urine Bilirubin NEGATIVE Urine Urobilinogen NEGATIVE Urine Leukocyte Esterase 3+ H Urine Microscopic RBC 2 Urine Microscopic WBC 165 H Urine Bacteria FEW A Urine Yeast (Budding) FEW A Urine Hemoglobin 1+ H Urine Glucose NEGATIVE Urine Total Protein NEGATIVE HPI/ROS Admit Date/Time Admit Date/Time Sep 07, 2018 at 19:38 Hx of Present Illness f/c and severe sob with sleeplessness. Patient was seen in the office 2 days ago with having episodes of chills. Communication was difficult with the patient mainly information was taken from the daughter patient. It was apparent that she was feeling freezing at home no antibiotics were taken. In office laboratory work-up was taken including a UA culture sensitivity results of which are pending. Knowing her past medical history infrequent episodes of having sepsis being in ICU setting along with COPD exacerbation right being almost on 5 L of oxygen at home long period of time I recommend the patient to go to the [facility] having in mind to prevent impending crisis. Daughter agreed that the patient refused they went home. Yesterday patient was brought to the emergency room when she will become difficult to tolerate and she realized fevers also coming in the emergency room was found that patient had a UTI Rocephin was started fortunately there was no bed in the hospital to be admitted shows on the corridor for emergency room which made her to be frustrated. Besides acute problem of UTI for which she came to the hospital patient was not very careful and sensitive to the sleeping pill issues when she was taking at least 2 3 of them to be able to sleep at 9:00 PM which definitely was unable to do at that time in the emergency room setting. Today 1 of the main complaints. He is that patient is having pain in the tongue loss of taste and it is of considerable intensity about 67/10 on a scale of 10/10 which according to her is improving after taking the Tylenol 3. ROS Constitutional: chills, disoriented, fatigue, nausea, poor po, weight change; No no complaints, No improved, No diaphoresis, No febrile, No other Eyes: No no complaints, No pain, No discharge, No redness, No visual change, No other ENT: No no complaints, No bleeding, No pain, No congestion, No discharge, No dysphagia, No sore throat, No other Respiratory: cough, pleuritic pain, shortness of breath, sputum, wheezing; No no complaints, No pain, No other Cardiovascular: edema, lightheadedness, orthopenea, palpitations, paroxysmal nocturnal dyspnea; No no complaints, No chest pain, No other Gastrointestinal: constipation, decreased appetite, flatus, nausea, passing stool; No no complaints, No pain, No blood, No diarrhea, No vomiting, No other Genitourinary: dysuria, flank pain; No no complaints, No bleeding, No discharge, No hematuria, No other Musculoskeletal: back pain, bone/joint pain, neck pain; No no complaints, No restricted range of motion, No swelling, No other Skin: pruritis, rash; No no complaints, No bruising, No erythema, No laceration, No skin lesions, No other Neurologic: confusion (On and off. Actually patient is not following the days. She is mainly concerned that her sleeping pills will be available and pain control is achieved. If there so that the patient even forgets to put her oxygen after which according to her daughter she is becoming more in the respiratory distress. Become apparent that she is forgetting also to take breathing treatments but family is very vigilant to correct the mishap from happening.), dizziness, headache; No no complaints, No focal-weakness, No syncope, No seizure, No other Endocrine: polyuria, polydypsia Lymphatic: No no complaints, No adenopathy, No tender nodes, No lymphadema, No other Psychological: anxiety, confusion, depression; No no complaints, No nl mood/affect, No suicidal, No other Immunologic: No no complaints, No immunodeficiency, No pruritis, No rhinitis, No urticaria, No other PMH/Family/Social Past Medical History Medical History: angina, congestive heart failure, coronary artery disease, diabetes, diverticulitis, GERD, GI bleed, high cholesterol, hypertension, hypothyroid, pancreatitis, peptic ulcer disease, urinary tract infection, other (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) Family History Significant Family History: no pertinent family hx Social History Alcohol Use: none Smoking Status: Former smoker Drug Use: none Exam/Review of Systems Vital Signs Vitals Vital Signs Date Temp Pulse Resp B/P (MAP) Pulse Ox O2 O2 Flow FiO2 Time Delivery Rate 09/08/18 98.7 78 18 138/81 92 Nasal 2.0 14:57 (100) Cannula Exam Constitutional: alert, oriented, well developed, distress Psych: anxiety, depression; No no complaints, No nl mood/affect, No confusion, No suicidal, No other Head: normocephalic, atraumatic; No lacerations, No hematomas, No other Eyes: EOMI, nl lids, PERRL; No nl conjunctiva, No nl sclera, No icteric, No fundi, disc, No other ENMT: nl external ears & nose, nl nasal mucosa & septum; No nl lips & teeth, No mucosa pink and moist, No intubated, No tympanic membranes, No other Neck: bruits, thyromegaly (Status post thyroidectomy scar well-healed no new masses or palpable.), other; No supple, No non-tender, No jvd, No masses, No nuchal rigidity Respiratory: congested cough, crackles/rales, diminished breath sounds, intercostal retraction, labored breathing, respirations, wheezing; No clear to auscultation, No normal air movement, No tactile fremitus, No other Cardiovascular: nl pulses, bruits, jugular venous distention (JVD), systolic murmur; No regular rate and rhythm, No diastolic murmur, No edema, No gallop, No irregular rhythm, No murmurs/extra sounds, No rub, No S3, No S4, No other Gastrointestinal: soft, nl liver, spleen; No non-tender, No ascites, No bowel sounds, No distended, No firm, No hepatomegaly, No mass, No rebound or guarding, No splenomegaly, No surgical scars, No tender, No other Genitourinary - Male: nl penis, nl scrotum; No CVA tenderness, No discharge, No other Genitourinary - Female: other (Claudio in place.); No nl adnexae, No nl external genitalia, No CMT, No CVA tenderness, No uterus Musculoskeletal: joint tenderness; No nl extremities to inspection, No nl gait and stance, No muscle tone, No muscle weakness, No range of motion, No spine non-tender, No swelling, No other Extremities: normal pulses, pitting pedal edema; No calf tenderness, No cyanosis, No clubbing, No edema, No palpable cord, No tenderness, No other Neurological: 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
[2018-09-08 20:00] VITALS: BP 155/81; PULSE 81; RESP 18
[2018-09-08] MEDS ORDERED: ALBUTEROL 0.083% (NEB) 2.5 MG/3 ML AMP NEB PRN (22:30)
[2018-09-08] MEDS ORDERED: ZOLPIDEM 5 MG TAB PO PRN (22:30)
[2018-09-08] MEDS ORDERED: IBUPROFEN 600 MG TAB PO PRN (22:30)
[2018-09-08] MEDS ORDERED: ACETAMINOPHEN/CODEINE #3 TAB PO SCH (22:30)
[2018-09-08] MEDS ORDERED: ERGOCALCIFEROL 50,000 UNIT CAP PO SCH (22:30)
[2018-09-08] MEDS ORDERED: ALBUTEROL/IPRATROPIUM (NEB) 3 ML AMP HHN PRN (23:00)
[2018-09-08] MEDS: LEVOFLOXACIN 500MG/D5W (PMX) 100 ML IVPB SCH (23:00)
[2018-09-08] MEDS ORDERED: HYDROCODONE/APAP (5/325) TAB PO PRN (23:00)
[2018-09-08] MEDS: METOPROLOL 25 MG TAB PO SCH (23:02)
[2018-09-08] MEDS: GABAPENTIN 400 MG CAP PO SCH (23:02)
[2018-09-08] MEDS: ALBUTEROL/IPRATROPIUM (NEB) 3 ML AMP HHN SCH ×2 (23:11→23:45)
[2018-09-08] MEDS: QUETIAPINE 100 MG TAB PO SCH (23:18)
[2018-09-09 02:01] VITALS: BP 129/69; PULSE 63; RESP 18
[2018-09-09] MEDS: LEVOTHYROXINE 125 MCG TAB PO SCH (07:25)
[2018-09-09] MEDS: PANTOPRAZOLE (EC) 40 MG TAB PO SCH (07:25)
[2018-09-09 08:00] VITALS: BP 139/73; PULSE 82; RESP 20
--- NOTE | 2018-09-09 08:16 | PN ---
Date/Time of Note Date/Time of Note DATE: 09/09/18 TIME: 08:10 Assessment/Plan VTE Prophylaxis Risk score (from Ns)>0 risk: 3 SCD applied (from Ns): No SCD contraindicated: other (On.) Pharmacological prophylaxis: LMWH Lines/Catheters [facility] Sal[place] line still needed: No Urinary Cath still in place: Yes Reason Cath still needed: urinary retention Assessment/Plan Assessment/Plan 1. Urinary tract infection. Urinary incontinence. 2, Chronic obstructive pulmonary disease exacerbation-worse comparing with yesterday.. 3. Wheezing improving 4. Anxiety depression 5. History of diabetes type 2, now better controlled. 6. Lactic acidosis- mild. 7. Hypothyroidism. Decrease the dose of levothyroxine. Previous dose was 200, came down to 150 mcg. 8. History of gastritis and gastroesophageal reflux disease. Continue Protonix. 9. Psoriasis. 10. Dyslipidemia. 11. Memory impairment. 12. Sleeplessness. 13. 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 14. Upon availability of more data, we will add to current report. 15. lbp 16.Very low mg and iron levels 17. Suspect multidrug abuse mainly sleeping pills and Tylenol 3. 18. On and off agitation dissatisfaction noncompliance to treatment. Result Diagram: 09/07/18184409/07/181844 Subjective 24 Hr Interval Summary Free Text/Dictation Sleeplessness. Burning sensation lower abdominal area. Shortness of breath with wheezing. Forgetfulness. Constitutional: improved, chills, diaphoresis, disoriented, febrile, poor po, requiring IVF, requiring O2; No no complaints, No other Eyes: other (Pale.); No no complaints, No pain, No discharge, No redness, No visual change ENT: No no complaints, No bleeding, No pain, No congestion, No discharge, No dysphagia, No sore throat, No other Respiratory: cough, pleuritic pain, shortness of breath, sputum, wheezing; No no complaints, No pain, No other Cardiovascular: chest pain, edema, lightheadedness, orthopenea, palpitations, paroxysmal nocturnal dyspnea; No no complaints, No other Gastrointestinal: constipation, decreased appetite, flatus, nausea, passing stool; No no complaints, No pain, No blood, No diarrhea, No vomiting, No other Genitourinary: dysuria, flank pain; No no complaints, No bleeding, No discharge, No hematuria, No other Musculoskeletal: back pain, bone/joint pain Skin: No no complaints, No bruising, No erythema, No laceration, No pruritis, No rash, No skin lesions, No other Neurologic: dizziness, headache; No no complaints, No confusion, No focal-weakness, No syncope, No seizure, No other Lymphatic: No no complaints, No adenopathy, No tender nodes, No lymphadema, No other Psychological: anxiety, depression; No no complaints, No nl mood/affect, No confusion, No suicidal, No other Immunologic: No no complaints, No immunodeficiency, No pruritis, No rhinitis, No urticaria, No other Exam/Review of Systems Exam Vitals Vital Signs Date Temp Pulse Resp B/P (MAP) Pulse Ox O2 O2 Flow FiO2 Time Delivery Rate 09/09/18 97.9 63 18 129/69 96 02:01 (89) 09/08/18 3.0 23:14 09/08/18 Nasal 23:14 Cannula Intake and Output 09/08/18 09/08/18 09/09/18 1515:00 23:00 07:00 IntakeIntake Total 100 ml BalanceBalance 100 ml Constitutional: alert, oriented, well developed, distress, frail, obese Psych: anxiety, confusion, depression; No no complaints, No nl mood/affect, No suicidal, No other Head: normocephalic, atraumatic Eyes: EOMI, nl lids, PERRL; No nl conjunctiva, No nl sclera, No icteric, No fundi, disc, No other ENMT: No nl external ears & nose, No nl lips & teeth, No nl nasal mucosa & septum, No mucosa pink and moist, No intubated, No tympanic membranes, No other Neck: jvd, bruits, masses, nuchal rigidity; No supple, No non-tender, No thyromegaly, No other Respiratory: congested cough, crackles/rales, diminished breath sounds, labored breathing, respirations; No clear to auscultation, No normal air movement, No intercostal retraction, No tactile fremitus, No wheezing, No other Cardiovascular: bruits, edema, jugular venous distention (JVD), systolic murmur; No regular rate and rhythm, No nl pulses, No diastolic murmur, No gallop, No irregular rhythm, No murmurs/extra sounds, No rub, No S3, No S4, No other Gastrointestinal: soft, nl liver, spleen, bowel sounds, distended; No non-tender, No ascites, No firm, No hepatomegaly, No mass, No rebound or guarding, No splenomegaly, No surgical scars, No tender, No other Genitourinary - Female: nl adnexae, nl external genitalia; No CMT, No CVA tenderness, No uterus, No other Musculoskeletal: joint tenderness, muscle tone, muscle weakness; No nl extremities to inspection, No nl gait and stance, No range of motion, No spine non-tender, No swelling, No other Extremities: No normal pulses, No calf tenderness, No cyanosis, No clubbing, No edema, No pitting pedal edema, No palpable cord, No tenderness, No other Neurological: MICROARRAY SPECIALIST II-XII intact, confused, lethargic, numbness; No nl mental status, No nl speech, No nl strength, No DTR's symmetric, No focal weakness, No reflexes, No unresponsive, No other Skin: nl turgor (Decreased.), rash or lesions; No diaphoresis, No ecchymosis, No laceration, No puncture, No other Lymph: No nl lymph nodes, No enlarged, No nontender, No other Medications Medication Current Medications Zolpidem Tartrate (Ambien) 10 mg HS PRN PO INSOMNIA Last administered on 09/08/18at 21:58; Admin Dose 10 MG; Start 09/08/18 at 04:00 Albuterol (Proventil 0.083% (Neb)) 1.25 mg Q6H RESP THERAPY PRN NEB WHEEZING AND SOB; Start 09/08/18 at 22:30 Amlodipine Besylate (Norvasc) 10 mg DAILY PO ; Start 09/09/18 at 09:00 Aspirin (Halfprin) 81 mg DAILY PO ; Start 09/09/18 at 09:00 Atorvastatin Calcium (Lipitor) 40 mg QHS PO ; Start 09/09/18 at 21:00 Ferrous Sulfate (Ferrous Sulfate (Ec)) 325 mg DAILY PO ; Start 09/09/18 at 09:00 Gabapentin (Neurontin) 800 mg BID PO Last administered on 09/08/18at 23:02; Admin Dose 800 MG; Start 09/08/18 at 22:30 Isosorbide Mononitrate (Imdur) 30 mg DAILY PO ; Start 09/09/18 at 09:00 Levothyroxine Sodium (Synthroid) 125 mcg BEFORE BREAKFAST PO Last administered on 09/09/18at 07:25; Admin Dose 125 MCG; Start 09/09/18 at 07:00 Metoprolol Tartrate (Lopressor) 25 mg BID PO Last administered on 09/08/18at 23:02; Admin Dose 25 MG; Start 09/08/18 at 22:30 Pantoprazole (Protonix Tab) 40 mg AC BREAKFAST PO Last administered on 09/09/18at 07:25; Admin Dose 40 MG; Start 09/09/18 at 07:30 Solifenacin (Vesicare) 10 mg DAILY PO ; Start 09/09/18 at 09:00 Zolpidem Tartrate (Ambien) 10 mg QHS PRN PO INSOMNIA; Start 09/08/18 at 22:30 Ibuprofen (Motrin) 600 mg Q6H PRN PO PAIN 1-3; Start 09/08/18 at 22:30 Levofloxacin/ Dextrose 100 ml @ 100 mls/hr Q24H IVPB Last administered on 09/08/18at 23:00; Admin Dose 100 MLS/HR; Start 09/08/18 at 23:00 Methylprednisolone Sodium Succinate (Solu-Medrol) 60 mg ONCE ONCE IV ; Start 09/09/18 at 09:00; Stop 09/09/18 at 09:01 Methylprednisolone Sodium Succinate (Solu-Medrol) 30 mg ONCE ONCE IV ; Start 09/10/18 at 09:00; Stop 09/10/18 at 09:01 Albuterol/ Ipratropium (Duoneb) 3 ml Q8H RESP THERAPY HHN Last administered on 09/08/18at 23:45; Admin Dose 3 ML; Start 09/08/18 at 22:45 Albuterol/ Ipratropium (Duoneb) 3 ml Q8H RESP THERAPY PRN HHN SHORTNESS OF BREATH; Start 09/08/18 at 23:00 Acetaminophen/ Hydrocodone Bitart ([place] (5/325)) 1 tab Q5H PRN PO MODERATE PAIN LEVEL 4-6; Start 09/08/18 at 23:00 Quetiapine Fumarate (Seroquel) 100 mg HS PO Last administered on 09/08/18at 23:18; Admin Dose 100 MG; Start 09/08/18 at 22:00 Ergocalciferol (Drisdol) 50,000 unit Q7D PO ; Start 09/10/18 at 09:00 Rivaroxaban (Xarelto) 10 mg DAILY PO ; Start 09/09/18 at 09:00 CARMEN COLBERT MD Sep 09, 2018 08:16
[2018-09-09] MEDS: ALBUTEROL/IPRATROPIUM (NEB) 3 ML AMP HHN SCH ×3 (08:20→23:01)
[2018-09-09] MEDS ORDERED: METHYLPREDNISOLONE 125 MG INJ IV ONE (09:00)
[2018-09-09] MEDS: METOPROLOL 25 MG TAB PO SCH ×2 (09:08→20:55)
[2018-09-09] MEDS: GABAPENTIN 400 MG CAP PO SCH ×2 (09:08→20:54)
[2018-09-09] MEDS: FERROUS SULFATE (EC) 325 MG TAB PO SCH (09:08)
[2018-09-09] MEDS: SOLIFENACIN 5 MG TAB PO SCH (09:10)
[2018-09-09] MEDS: ASPIRIN (EC) 81 MG TAB PO SCH (09:11)
[2018-09-09] MEDS: AMLODIPINE 10 MG TAB PO SCH (09:11)
[2018-09-09] MEDS: RIVAROXABAN 10 MG TABLET PO SCH (09:11)
[2018-09-09] MEDS: ISOSORBIDE MONONITRATE(SR)30 MG TAB PO SCH (09:11)
[2018-09-09 14:00] VITALS: BP 136/71; PULSE 65; RESP 20
[2018-09-09] MEDS ORDERED: morphine 2 MG INJ IV STA (18:15)
[2018-09-09] MEDS ORDERED: ENOXAPARIN 100 MG/ML SYG SC SCH (18:30)
[2018-09-09 19:40] VITALS: BP 136/71; PULSE 57; RESP 20
[2018-09-09] MEDS ORDERED: ATORVASTATIN 40 MG TAB ONE (19:57)
[2018-09-09] MEDS: ATORVASTATIN 40 MG TAB PO SCH (20:55)
[2018-09-09] MEDS: ZOLPIDEM 5 MG TAB PO PRN (20:55)
[2018-09-09] MEDS: QUETIAPINE 100 MG TAB PO SCH (20:55)
[2018-09-09] MEDS ORDERED: QUETIAPINE 100 MG TAB PO SCH (21:00)
[2018-09-09] MEDS ORDERED: NITROGLYCERIN 2% 1 GM OINT PKT ONE (21:03)
[2018-09-09] MEDS: NITROGLYCERIN 2% 1 GM OINT PKT TD SCH (21:06)
[2018-09-09] MEDS: LEVOFLOXACIN 500MG/D5W (PMX) 100 ML IVPB SCH (22:15)
[2018-09-10 02:05] VITALS: BP 111/58; PULSE 56; RESP 20
[2018-09-10] MEDS: NITROGLYCERIN 2% 1 GM OINT PKT TD SCH ×2 (06:14→15:15)
[2018-09-10] MEDS: PANTOPRAZOLE (EC) 40 MG TAB PO SCH (06:14)
[2018-09-10] MEDS: LEVOTHYROXINE 125 MCG TAB PO SCH (06:15)
[2018-09-10 07:59] VITALS: BP 116/57; PULSE 54; RESP 17
[2018-09-10] MEDS: ALBUTEROL/IPRATROPIUM (NEB) 3 ML AMP HHN SCH ×2 (08:33→16:15)
[2018-09-10] MEDS ORDERED: ERGOCALCIFEROL 50,000 UNIT CAP PO SCH (09:00)
[2018-09-10] MEDS: METOPROLOL 25 MG TAB PO SCH ×2 (09:00→21:00)
[2018-09-10] MEDS ORDERED: METHYLPREDNISOLONE 40 MG INJ IV ONE (09:00)
[2018-09-10] MEDS ORDERED: MAGNESIUM SULFATE 2 GM/50 ML 50 ML IVPB SCH (09:00)
[2018-09-10] MEDS: FERROUS SULFATE (EC) 325 MG TAB PO SCH (09:03)
[2018-09-10] MEDS: GABAPENTIN 400 MG CAP PO SCH ×2 (09:03→20:41)
[2018-09-10] MEDS: SOLIFENACIN 5 MG TAB PO SCH (09:03)
[2018-09-10] MEDS: AMLODIPINE 10 MG TAB PO SCH (09:04)
[2018-09-10] MEDS: ISOSORBIDE MONONITRATE(SR)30 MG TAB PO SCH (09:04)
[2018-09-10] MEDS: ASPIRIN (EC) 81 MG TAB PO SCH (09:04)
[2018-09-10] MEDS: RIVAROXABAN 10 MG TABLET PO SCH (09:04)
--- NOTE | 2018-09-10 09:51 | CONS ---
Assessment/Plan Assessment/Plan Problems: (1) COPD with acute exacerbation Status: Acute Comment: Her breathing is a bit tight at the present time and can add back in her breathing medications. Please note her degree of cooperation at home is a little bit challenged. (2) Hypocalcemia Status: Chronic Comment: Has history of chronic hypocalcemia and probably has postsurgical hypoparathyroidism. She is off her medications which is inducing a lot of muscle spasm which is giving her pain that she is trying to use narcotics to treat. I will try and get this turned around quickly (3) Post-surgical hypothyroidism Status: Chronic Comment: Stable on replacement therapy (4) Steroid-induced hyperglycemia Status: Acute Comment: Carefully while the patient's on steroids Consultation Date/Type/Reason Admit Date/Time Sep 07, 2018 at 19:38 Date of Consultation: Sep 10, 2018 Type of Consult Endocrine Reason for Consultation Post surgical hypothyroidism; steroid-induced hyperglycemia; COPD; essential hyp ertension; chronic pain syndrome; psoriasis; bipolar affective disorder; tobacco abuse; Requesting Provider: CARMEN COLBERT MD Date/Time of Note DATE: 09/10/18 TIME: 09:43 Hx of Present Illness 78-year-old [id number] [place] female admitted with dyspnea. Patient is actively and vigorously complaining of chest pain and will not answer or direct any other questions. She had previously been on a higher d ambler of levothyroxine this is been titrated down slowly over time which has brought her from a hyperthyroid state into a euthyroid state clinically and biochemically. Complaints of chest pain and declines to allow direction for other questioning Past Medical History Medical History: angina, congestive heart failure, coronary artery disease, diabetes, diverticulitis, GERD, GI bleed, high cholesterol, hypertension, hypothyroid, pancreatitis, peptic ulcer disease, urinary tract infection, other (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) Home Meds Reported Medications Cholecalciferol (Vitamin D3) (Vitamin D-3) 2,000 Unit Tablet, 2000 UNIT PO DAILY, TAB 09/07/18 Gabapentin* (Gabapentin*) 800 Mg Tablet, 800 MG PO BID, #90 TAB 09/07/18 Albuterol Sulfate* (Albuterol Sulfate* Neb) 0.083%-3 Ml Neb, 1.25 MG NEB Q6H PRN for WHEEZING AND SOB, #30 VIAL 09/07/18 Albuterol/Ipratropium* (Combivent Respimat*) 20-100 Mcg/Inh - 4 Gm Aer.w.adap, 1 PUFF INHALATION QID, #1 INHALER 09/07/18 Rivaroxaban* (Xarelto*) 10 Mg Tablet, 10 MG PO DAILY, TAB 09/07/18 Solifenacin* (Vesicare*) 10 Mg Tablet, 10 MG PO DAILY, TAB 09/07/18 Metoprolol Tartrate* (Lopressor*) 25 Mg Tab, 25 MG PO BID, #60 TAB 09/07/18 Quetiapine Fumarate* (Seroquel*) 100 Mg Tablet, 100 MG PO HS, #30 TAB 09/07/18 Atorvastatin* (Atorvastatin*) 40 Mg Tablet, 40 MG PO QHS, #30 TAB 09/07/18 Pantoprazole* (Pantoprazole*) 40 Mg Tablet.dr, 40 MG PO AC BREAKFAST, TAB 09/07/18 Isosorbide Mononitrate* (Isosorbide Mononitrate*) 30 Mg Tab.er.24h, 30 MG PO DAILY, TAB 09/07/18 Zolpidem Tartrate* (Zolpidem Tartrate*) 10 Mg Tablet, 10 MG PO QHS PRN for INSOMNIA, #30 TAB 09/07/18 Aspirin* (Aspirin* EC) 81 Mg Tablet.dr, 81 MG PO DAILY, TAB 09/07/18 Amlodipine Besylate* (Amlodipine Besylate*) 10 Mg Tablet, 10 MG PO DAILY, #30 TAB 09/07/18 Ibuprofen* (Ibuprofen*) 600 Mg Tablet, 600 MG PO NEEDED, TAB 09/07/18 Levothyroxine Sodium* (Synthroid*) 125 Mcg Tablet, 125 MCG PO BEFORE BREAKFAST, #30 TAB 09/07/18 Acetaminophen with Codeine (Acetaminophen-Cod #3 Tablet) 1 Each Tablet, 1 TAB PO NEEDED, #20 TAB 09/07/18 Ergocalciferol (Vitamin D2) (VITAMIN D2) 50,000 Unit Capsule, 72397 UNIT PO Q7D, CAP 09/07/18 Ferrous Sulfate* (Ferrous Sulfate*) 325 Mg Tabec, 325 MG PO DAILY, TAB 09/07/18 Discontinued Reported Medications Pregabalin* (Lyrica*) 75 Mg Capsule, 75 MG PO DAILY, CAP 06/08/16 Ibuprofen* (Motrin*) 600 Mg Tab, 600 MG PO TID, TAB 06/08/16 Levothyroxine Sodium* (Levoxyl*) 125 Mcg Tablet, 125 MCG PO BEFORE BREAKFAST, #30 TAB 06/08/16 Cholecalciferol* (Vitamin D3*) 2,000 Unit Cap, 2000 UNIT PO DAILY, CAP 12/09/15 Edoxaban Tosylate (Savaysa) 30 Mg Tablet, 30 MG PO DAILY, TAB 12/09/15 Albuterol/Ipratropium* (Combivent Respimat*) 20-100 Mcg/Inh - 4 Gm Aer.w.adap, 1 PUFF INHALATION QID, #1 INHALER 12/09/15 Amlodipine Besylate* (Amlodipine Besylate*) 10 Mg Tablet, 10 MG PO DAILY, TAB 11/19/14 Diazepam* (Diazepam*) 5 Mg Tablet, 5 MG PO BID PRN for INSOMNIA, TAB 11/19/14 Zolpidem Tartrate* (Zolpidem Tartrate*) 10 Mg Tablet, 10 MG PO HS PRN for INSOMNIA, TAB 11/19/14 Quetiapine Fumarate* (Quetiapine Fumarate*) 100 Mg Tablet, 100 MG PO HS, TAB 11/19/14 Metoprolol Tartrate* (Lopressor*) 25 Mg Tab, 25 MG PO BID, TAB 11/19/14 Pantoprazole* (Pantoprazole*) 40 Mg Tablet.dr, 40 MG PO AC BREAKFAST, TAB 11/19/14 Nitroglycerin* (Nitroglycerin* SL) 0.4 Mg Tab.subl, 0.4 MG SL Q5MIN PRN for CHEST PAIN, BOTTLE 11/19/14 Isosorbide Dinitrate* (Isosorbide Dinitrate*) 30 Mg Tablet, 30 MG PO DAILY, TAB 08/16/14 Acetaminophen-Codeine* (Acetaminophen-Cod #3*) 300-30 Mg Tab, 1 TAB PO Q8 PRN for PAIN, TAB 06/24/14 Gabapentin* (Neurontin*) 800 Mg Tablet, 800 MG PO QID, TAB 06/24/14 Aspirin* (Aspirin* (EC)) 81 Mg Tablet.dr, 81 MG PO DAILY, TAB 06/24/14 Discontinued Scripts Albuterol Sulfate* (Proair HFA*) 8.5 Gm Hfa.aer.ad, 2 PUFF INH Q6, #1 INHALER Prov:PEYMAN MARINO MD 06/12/16 Medications Current Medications Zolpidem Tartrate (Ambien) 10 mg HS PRN PO INSOMNIA Last administered on 09/09/18 20:55; Admin Dose 10 MG; Start 09/08/18 at 04:00 Albuterol (Proventil 0.083% (Neb)) 1.25 mg Q6H RESP THERAPY PRN NEB WHEEZING AND SOB; Start 09/08/18 at 22:30 Amlodipine Besylate (Norvasc) 10 mg DAILY PO Last administered on 09/10/18 09:04; Admin Dose 10 MG; Start 09/09/18 at 09:00 Aspirin (Halfprin) 81 mg DAILY PO Last administered on 09/10/18 09:04; Admin Dose 81 MG; Start 09/09/18 at 09:00 Atorvastatin Calcium (Lipitor) 40 mg QHS PO Last administered on 09/09/18 20:55; Admin Dose 40 MG; Start 09/09/18 at 21:00 Ferrous Sulfate (Ferrous Sulfate (Ec)) 325 mg DAILY PO Last administered on 09/10/18 09:03; Admin Dose 325 MG; Start 09/09/18 at 09:00 Gabapentin (Neurontin) 800 mg BID PO Last administered on 09/10/18 09:03; Admin Dose 800 MG; Start 09/08/18 at 22:30 Isosorbide Mononitrate (Imdur) 30 mg DAILY PO Last administered on 09/10/18 09:04; Admin Dose 30 MG; Start 09/09/18 at 09:00 Levothyroxine Sodium (Synthroid) 125 mcg BEFORE BREAKFAST PO Last administered on 09/10/18 06:15; Admin Dose 125 MCG; Start 09/09/18 at 07:00 Metoprolol Tartrate (Lopressor) 25 mg BID PO Last administered on 09/09/18 20:55; Admin Dose 25 MG; Start 09/08/18 at 22:30 Pantoprazole (Protonix Tab) 40 mg AC BREAKFAST PO Last administered on 09/10/18 06:14; Admin Dose 40 MG; Start 09/09/18 at 07:30 Solifenacin (Vesicare) 10 mg DAILY PO Last administered on 09/10/18 09:03; Admin Dose 10 MG; Start 09/09/18 at 09:00 Ibuprofen (Motrin) 600 mg Q6H PRN PO PAIN 1-3 Last administered on 09/09/18 17:15; Admin Dose 600 MG; Start 09/08/18 at 22:30 Levofloxacin/ Dextrose 100 ml @ 100 mls/hr Q24H IVPB Last administered on 09/09/18 22:15; Admin Dose 100 MLS/HR; Start 09/08/18 at 23:00 Albuterol/ Ipratropium (Duoneb) 3 ml Q8H RESP THERAPY HHN Last administered on 09/10/18 08:33; Admin Dose 3 ML; Start 09/08/18 at 22:45 Albuterol/ Ipratropium (Duoneb) 3 ml Q8H RESP THERAPY PRN HHN SHORTNESS OF BREATH; Start 09/08/18 at 23:00 Quetiapine Fumarate (Seroquel) 100 mg HS PO Last administered on 09/09/18 20:55; Admin Dose 100 MG; Start 09/08/18 at 22:00 Ergocalciferol (Drisdol) 50,000 unit Q7D PO Last administered on 09/10/18 09:03; Admin Dose 50,000 UNIT; Start 09/10/18 at 09:00 Rivaroxaban (Xarelto) 10 mg DAILY PO Last administered on 09/10/18 09:04; Admin Dose 10 MG; Start 09/09/18 at 09:00 Nitroglycerin (Nitroglycerin (Sl Tab) 0.4 Mg) 1 tab Q5M PRN SL ANGINA; Start 09/09/18 at 18:30 Nitroglycerin (Nitroglycerin 2% Oint) 0.5 inch Q8 TD Last administered on 09/10/18 06:14; Admin Dose 0.5 INCH; Start 09/09/18 at 22:00 Magnesium Sulfate 50 ml @ 25 mls/hr DAILY IVPB Last administered on 09/10/18 09:02; Admin Dose 25 MLS/HR; Start 09/10/18 at 09:00; Stop 09/12/18 at 10:59 Magnesium Sulfate 100 ml @ 25 mls/hr ONCE ONCE IVPB ; Start 09/10/18 at 16:00; Stop 09/10/18 at 19:59; Status UNV Morphine Sulfate (morphine) 1 mg Q2H PRN IV SEVERE PAIN LEVEL 7-10; Start 09/10/18 at 10:00; Status UNV Fluticasone/ Vilanterol (Breo Ellipta 200-25 Mcg Inh) 1 inh DAILY INH ; Start 09/10/18 at 10:00; Status UNV Tiotropium [place] (Spiriva) 1 inh DAILY INH ; Start 09/10/18 at 10:00; Status UNV Montelukast Sodium (Singulair) 10 mg HS PO ; Start 09/10/18 at 21:00; Status UNV Allergies: Coded Allergies: Iodinated Contrast- Oral and IV Dye (Verified Allergy, Mild, 09/07/18) Past Surgical History Past Surgical Hx: appendectomy, cholecystectomy, other (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) Family History Significant Family History: COPD, diabetes Social History Alcohol Use: none Smoking Status: Former smoker Drug Use: none Exam/Review of Systems Exam Vitals Vital Signs Date Temp Pulse Resp B/P (MAP) Pulse Ox O2 O2 Flow FiO2 Time Delivery Rate 09/10/18 3.0 08:34 09/10/18 70 16 96 Nasal 08:33 Cannula 09/10/18 98.0 116/57 07:59 (76) Intake and Output 09/09/18 09/09/18 09/10/18 1414:59 22:59 06:59 IntakeIntake Total 800 ml 500 ml 100 ml OutputOutput Total 2300 ml 3 ml 1050 ml BalanceBalance -1500 ml 497 ml -950 ml Constitutional: alert Neck: supple, non-tender Respiratory: congested cough, diminished breath sounds, wheezing Cardiovascular: regular rate and rhythm, nl pulses Gastrointestinal: soft, nl liver, spleen, non-tender Results Result Diagram: 09/10/18 0549 09/10/18 0549 Results 24hrs Laboratory Tests Test 09/09/18 18:51 09/10/18 05:49 Troponin I < 0.012 White Blood Count 14.3 H Red Blood Count 3.70 L Hemoglobin 12.1 Hematocrit 36.8 L Mean Corpuscular Volume 99.5 Mean Corpuscular Hemoglobin 32.7 Mean Corpuscular Hemoglobin Concent 32.9 Red Cell Distribution Width 13.0 Platelet Count 232 Mean Platelet Volume 11.7 H Immature Granulocytes % 0.800 H Neutrophils % 81.4 H Lymphocytes % 13.7 L Monocytes % 4.0 Eosinophils % 0.0 Basophils % 0.1 Nucleated Red Blood Cells % 0.0 Immature Granulocytes # 0.110 H Neutrophils # 11.6 H Lymphocytes # 2.0 Monocytes # 0.6 Eosinophils # 0.0 Basophils # 0.0 Nucleated Red Blood Cells # 0.0 Sodium Level 143 Potassium Level 3.6 Chloride Level 104 Carbon Dioxide Level 26 Anion Gap 13 Blood Urea Nitrogen 24 H Creatinine 0.85 Est Glomerular Filtrat Rate mL/min Glucose Level 112 Calcium Level 6.8 L Magnesium Level 0.9 *L Iron Level 144 Total Iron Binding Capacity 282 Percent Iron Saturation 51 Total Bilirubin 0.4 Direct Bilirubin 0.00 Indirect Bilirubin 0.4 Aspartate Amino Transf (AST/SGOT) 16 Alanine Aminotransferase (ALT/SGPT) 19 Alkaline Phosphatase 32 L Total Protein 7.1 Albumin 3.8 Globulin 3.30 H Albumin/Globulin Ratio 1.15 Thyroid Stimulating Hormone (TSH) 2.170 Medications Medication Current Medications Zolpidem Tartrate (Ambien) 10 mg HS PRN PO INSOMNIA Last administered on 09/09/18 20:55; Admin Dose 10 MG; Start 09/08/18 at 04:00 Albuterol (Proventil 0.083% (Neb)) 1.25 mg Q6H RESP THERAPY PRN NEB WHEEZING AND SOB; Start 09/08/18 at 22:30 Amlodipine Besylate (Norvasc) 10 mg DAILY PO Last administered on 09/10/18 09:04; Admin Dose 10 MG; Start 09/09/18 at 09:00 Aspirin (Halfprin) 81 mg DAILY PO Last administered on 09/10/18 09:04; Admin Dose 81 MG; Start 09/09/18 at 09:00 Atorvastatin Calcium (Lipitor) 40 mg QHS PO Last administered on 09/09/18 20:55; Admin Dose 40 MG; Start 09/09/18 at 21:00 Ferrous Sulfate (Ferrous Sulfate (Ec)) 325 mg DAILY PO Last administered on 09/10/18 09:03; Admin Dose 325 MG; Start 09/09/18 at 09:00 Gabapentin (Neurontin) 800 mg BID PO Last administered on 09/10/18 09:03; Admin Dose 800 MG; Start 09/08/18 at 22:30 Isosorbide Mononitrate (Imdur) 30 mg DAILY PO Last administered on 09/10/18 09:04; Admin Dose 30 MG; Start 09/09/18 at 09:00 Levothyroxine Sodium (Synthroid) 125 mcg BEFORE BREAKFAST PO Last administered on 09/10/18 06:15; Admin Dose 125 MCG; Start 09/09/18 at 07:00 Metoprolol Tartrate (Lopressor) 25 mg BID PO Last administered on 09/09/18 20:55; Admin Dose 25 MG; Start 09/08/18 at 22:30 Pantoprazole (Protonix Tab) 40 mg AC BREAKFAST PO Last administered on 09/10/18 06:14; Admin Dose 40 MG; Start 09/09/18 at 07:30 Solifenacin (Vesicare) 10 mg DAILY PO Last administered on 09/10/18 09:03; Admin Dose 10 MG; Start 09/09/18 at 09:00 Ibuprofen (Motrin) 600 mg Q6H PRN PO PAIN 1-3 Last administered on 09/09/18 17:15; Admin Dose 600 MG; Start 09/08/18 at 22:30 Levofloxacin/ Dextrose 100 ml @ 100 mls/hr Q24H IVPB Last administered on 09/09/18 22:15; Admin Dose 100 MLS/HR; Start 09/08/18 at 23:00 Albuterol/ Ipratropium (Duoneb) 3 ml Q8H RESP THERAPY HHN Last administered on 09/10/18 08:33; Admin Dose 3 ML; Start 09/08/18 at 22:45 Albuterol/ Ipratropium (Duoneb) 3 ml Q8H RESP THERAPY PRN HHN SHORTNESS OF BREATH; Start 09/08/18 at 23:00 Quetiapine Fumarate (Seroquel) 100 mg HS PO Last administered on 09/09/18 20:55; Admin Dose 100 MG; Start 09/08/18 at 22:00 Ergocalciferol (Drisdol) 50,000 unit Q7D PO Last administered on 09/10/18 09:03; Admin Dose 50,000 UNIT; Start 09/10/18 at 09:00 Rivaroxaban (Xarelto) 10 mg DAILY PO Last administered on 09/10/18at 09:04; Admin Dose 10 MG; Start 09/09/18 at 09:00 Nitroglycerin (Nitroglycerin (Sl Tab) 0.4 Mg) 1 tab Q5M PRN SL ANGINA; Start 09/09/18 at 18:30 Nitroglycerin (Nitroglycerin 2% Oint) 0.5 inch Q8 TD Last administered on 09/10/18at 06:14; Admin Dose 0.5 INCH; Start 09/09/18 at 22:00 Magnesium Sulfate 50 ml @ 25 mls/hr DAILY IVPB Last administered on 09/10/18at 09:02; Admin Dose 25 MLS/HR; Start 09/10/18 at 09:00; Stop 09/12/18 at 10:59 Magnesium Sulfate 100 ml @ 25 mls/hr ONCE ONCE IVPB ; Start 09/10/18 at 16:00; Stop 09/10/18 at 19:59; Status UNV Morphine Sulfate (morphine) 1 mg Q2H PRN IV SEVERE PAIN LEVEL 7-10; Start 09/10/18 at 10:00; Status UNV Fluticasone/ Vilanterol (Breo Ellipta 200-25 Mcg Inh) 1 inh DAILY INH ; Start 09/10/18 at 10:00; Status UNV Tiotropium [place] (Spiriva) 1 inh DAILY INH ; Start 09/10/18 at 10:00; Status UNV Montelukast Sodium (Singulair) 10 mg HS PO ; Start 09/10/18 at 21:00; Status UNV ROBERT MACHUCA MD Sep 10, 2018 09:51
[2018-09-10] MEDS: FLUTICASONE/VILANTEROL 200-25 INH DEVICE INH SCH (10:00)
[2018-09-10] MEDS: ACCU-CHEK XX SCH ×5 (10:00→20:38)
[2018-09-10] MEDS ORDERED: CALCITRIOL 1 MCG INJ IV ONE (11:00)
[2018-09-10] MEDS: TIOTROPIUM 18 MCG CAPSULE INHA DEV INH SCH (11:48)
--- NOTE | 2018-09-10 12:38 | PN ---
Date/Time of Note Date/Time of Note DATE: 09/10/18 TIME: 12:33 Assessment/Plan VTE Prophylaxis Risk score (from Ns)>0 risk: 5 SCD applied (from [facility] [place]): No SCD contraindicated: low risk/ambulating Pharmacological prophylaxis: LMWH Lines/Catheters IV [facility]ter Type (from [facility]): [place] line still needed: No Urinary Cath still in place: Yes Reason Cath still needed: urinary retention Assessment/Plan Assessment/Plan 1. Urinary tract infection. Urinary incontinence. 2, Chronic obstructive pulmonary disease exacerbation-worse comparing with yesterday.. 3. Wheezing improving 4. Anxiety depression 5. History of diabetes type 2, now better controlled. 6. Lactic acidosis- mild. 7. Hypothyroidism. Decrease the dose of levothyroxine. Previous dose was 200, came down to 150 mcg. 8. History of gastritis and gastroesophageal reflux disease. Continue Protonix. 9. Psoriasis. 10. Dyslipidemia. 11. Memory impairment. 12. Sleeplessness. 13. 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 14. Upon availability of more data, we will add to current report. 15. lbp 16.Very low mg and iron levels 17. Suspect multidrug abuse mainly sleeping pills and Tylenol 3. 18. On and off agitation dissatisfaction noncompliance to treatment. Result Diagram: 09/10/18 0549 09/10/18 0549 Results 24hrs Laboratory Tests Test 09/09/18 18:51 09/10/18 05:49 09/10/18 11:52 Troponin I < 0.012 White Blood Count 14.3 H Red Blood Count 3.70 L Hemoglobin 12.1 Hematocrit 36.8 L Mean Corpuscular Volume 99.5 Mean Corpuscular Hemoglobin 32.7 Mean Corpuscular Hemoglobin Concent 32.9 Red Cell Distribution Width 13.0 Platelet Count 232 Mean Platelet Volume 11.7 H Immature Granulocytes % 0.800 H Neutrophils % 81.4 H Lymphocytes % 13.7 L Monocytes % 4.0 Eosinophils % 0.0 Basophils % 0.1 Nucleated Red Blood Cells % 0.0 Immature Granulocytes # 0.110 H Neutrophils # 11.6 H Lymphocytes # 2.0 Monocytes # 0.6 Eosinophils # 0.0 Basophils # 0.0 Nucleated Red Blood Cells # 0.0 Sodium Level 143 Potassium Level 3.6 Chloride Level 104 Carbon Dioxide Level 26 Anion Gap 13 Blood Urea Nitrogen 24 H Creatinine 0.85 Est Glomerular Filtrat Rate mL/min Glucose Level 112 Calcium Level 6.8 L Magnesium Level 0.9 *L Iron Level 144 Total Iron Binding Capacity 282 Percent Iron Saturation 51 Total Bilirubin 0.4 Direct Bilirubin 0.00 Indirect Bilirubin 0.4 Aspartate Amino Transf (AST/SGOT) 16 Alanine Aminotransferase (ALT/SGPT) 19 Alkaline Phosphatase 32 L Total Protein 7.1 Albumin 3.8 Globulin 3.30 H Albumin/Globulin Ratio 1.15 Thyroid Stimulating Hormone (TSH) 2.170 Bedside Glucose 129 Subjective 24 Hr Interval Summary Free Text/Dictation Chest pain in the substernal area sometimes bilateral radiating to the neck worsening or shortness of breath. I am anxious tense because sleeping pills are not sufficient. Patient wants Tylenol 3 which is not available in the hospital. As the patient if she has medication at home to bring it is okay to take in the hospital. For pain control we will given [place] 5/325 or morphine sulfate IV. Subjective hx not possible: pt critical, other (She is tense and dissatisfied.) Constitutional: No no complaints, No improved, No chills, No diaphoresis, No disoriented, No febrile, No poor po, No requiring IVF, No requiring O2, No other Eyes: discharge, redness; No no complaints, No pain, No visual change, No other ENT: congestion, dysphagia; No no complaints, No bleeding, No pain, No discharge, No sore throat, No other Respiratory: cough, pleuritic pain, shortness of breath; No no complaints, No pain, No sputum, No wheezing, No other Cardiovascular: chest pain, lightheadedness, orthopenea, palpitations, paroxysmal nocturnal dyspnea; No no complaints, No edema, No other Gastrointestinal: constipation, decreased appetite, passing stool, vomiting; No no complaints, No pain, No blood, No diarrhea, No flatus, No nausea, No other Genitourinary: dysuria, discharge; No no complaints, No bleeding, No flank pain, No hematuria, No other Musculoskeletal: back pain, bone/joint pain, neck pain, restricted range of motion; No no complaints, No swelling, No other Skin: bruising; No no complaints, No erythema, No laceration, No pruritis, No rash, No skin lesions, No other Neurologic: dizziness, headache; No no complaints, No confusion, No focal-weakness, No syncope, No seizure, No other Endocrine: polyuria, dry skin; No no complaints, No polydypsia, No temp intolerance, No other Lymphatic: No no complaints, No adenopathy, No tender nodes, No lymphadema, No other Psychological: anxiety, confusion, depression; No no complaints, No nl mood/affect, No suicidal, No other Immunologic: No no complaints, No immunodeficiency, No pruritis, No rhinitis, No urticaria, No other Exam/Review of Systems Exam Vitals Vital Signs Date Temp Pulse Resp B/P (MAP) Pulse Ox O2 O2 Flow FiO2 Time Delivery Rate 09/10/18 Nasal 2.0 09:00 Cannula 09/10/18 70 16 96 08:33 09/10/18 98.0 116/57 07:59 (76) Intake and Output 09/09/18 09/09/18 09/10/18 1515:00 23:00 07:00 IntakeIntake Total 800 ml 500 ml 100 ml OutputOutput Total 2300 ml 3 ml 1050 ml BalanceBalance -1500 ml 497 ml -950 ml Constitutional: alert, oriented, well developed, distress, frail, obese; No non-verbal, No other Psych: anxiety, confusion, depression; No no complaints, No nl mood/affect, No suicidal, No other Head: normocephalic, atraumatic; No lacerations, No hematomas, No other Eyes: EOMI, nl lids, PERRL; No nl conjunctiva, No nl sclera, No icteric, No fundi, disc, No other ENMT: nl external ears & nose, nl nasal mucosa & septum, tympanic membranes; No nl lips & teeth, No mucosa pink and moist, No intubated, No other Neck: jvd, bruits, thyromegaly, nuchal rigidity; No supple, No non-tender, No masses, No other Respiratory: normal air movement, congested cough, crackles/rales, diminished breath sounds; No clear to auscultation, No intercostal retraction, No labored breathing, No respirations, No tactile fremitus, No wheezing, No other Cardiovascular: regular rate and rhythm, bruits, jugular venous distention (JVD), systolic murmur; No nl pulses, No diastolic murmur, No edema, No gallop, No irregular rhythm, No murmurs/extra sounds, No rub, No S3, No S4, No other Gastrointestinal: soft, nl liver, spleen, bowel sounds; No non-tender, No ascites, No distended, No firm, No hepatomegaly, No mass, No rebound or guarding, No splenomegaly, No surgical scars, No tender, No other Genitourinary - Female: nl adnexae, nl external genitalia; No CMT, No CVA tenderness, No uterus, No other Musculoskeletal: joint tenderness, muscle tone, muscle weakness; No nl extremities to inspection, No nl gait and stance, No range of motion, No spine non-tender, No swelling, No other Extremities: edema; No normal pulses, No calf tenderness, No cyanosis, No clubbing, No pitting pedal edema, No palpable cord, No tenderness, No other Neurological: 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 impairment.), nl speech, nl strength (Decreased.) Skin: nl turgor; No rash or lesions, No diaphoresis, No ecchymosis, No laceration, No puncture, No other Lymph: nl lymph nodes; No enlarged, No nontender, No other Results Results 24hrs Laboratory Tests Test 09/09/18 18:51 09/10/18 05:49 09/10/18 11:52 Troponin I < 0.012 White Blood Count 14.3 H Red Blood Count 3.70 L Hemoglobin 12.1 Hematocrit 36.8 L Mean Corpuscular Volume 99.5 Mean Corpuscular Hemoglobin 32.7 Mean Corpuscular Hemoglobin Concent 32.9 Red Cell Distribution Width 13.0 Platelet Count 232 Mean Platelet Volume 11.7 H Immature Granulocytes % 0.800 H Neutrophils % 81.4 H Lymphocytes % 13.7 L Monocytes % 4.0 Eosinophils % 0.0 Basophils % 0.1 Nucleated Red Blood Cells % 0.0 Immature Granulocytes # 0.110 H Neutrophils # 11.6 H Lymphocytes # 2.0 Monocytes # 0.6 Eosinophils # 0.0 Basophils # 0.0 Nucleated Red Blood Cells # 0.0 Sodium Level 143 Potassium Level 3.6 Chloride Level 104 Carbon Dioxide Level 26 Anion Gap 13 Blood Urea Nitrogen 24 H Creatinine 0.85 Est Glomerular Filtrat Rate mL/min Glucose Level 112 Calcium Level 6.8 L Magnesium Level 0.9 *L Iron Level 144 Total Iron Binding Capacity 282 Percent Iron Saturation 51 Total Bilirubin 0.4 Direct Bilirubin 0.00 Indirect Bilirubin 0.4 Aspartate Amino Transf (AST/SGOT) 16 Alanine Aminotransferase (ALT/SGPT) 19 Alkaline Phosphatase 32 L Total Protein 7.1 Albumin 3.8 Globulin 3.30 H Albumin/Globulin Ratio 1.15 Thyroid Stimulating Hormone (TSH) 2.170 Bedside Glucose 129 Medications Medication Current Medications Zolpidem Tartrate (Ambien) 10 mg HS PRN PO INSOMNIA Last administered on 09/09/18 20:55; Admin Dose 10 MG; Start 09/08/18 at 04:00 Albuterol (Proventil 0.083% (Neb)) 1.25 mg Q6H RESP THERAPY PRN NEB WHEEZING AND SOB; Start 09/08/18 at 22:30 Amlodipine Besylate (Norvasc) 10 mg DAILY PO Last administered on 09/10/18 09:04; Admin Dose 10 MG; Start 09/09/18 at 09:00 Aspirin (Halfprin) 81 mg DAILY PO Last administered on 09/10/18 09:04; Admin Dose 81 MG; Start 09/09/18 at 09:00 Atorvastatin Calcium (Lipitor) 40 mg QHS PO Last administered on 09/09/18 20:55; Admin Dose 40 MG; Start 09/09/18 at 21:00 Gabapentin (Neurontin) 800 mg BID PO Last administered on 09/10/18 09:03; Admin Dose 800 MG; Start 09/08/18 at 22:30 Isosorbide Mononitrate (Imdur) 30 mg DAILY PO Last administered on 09/10/18 09:04; Admin Dose 30 MG; Start 09/09/18 at 09:00 Levothyroxine Sodium (Synthroid) 125 mcg BEFORE BREAKFAST PO Last administered on 09/10/18 06:15; Admin Dose 125 MCG; Start 09/09/18 at 07:00 Metoprolol Tartrate (Lopressor) 25 mg BID PO Last administered on 09/09/18 20:55; Admin Dose 25 MG; Start 09/08/18 at 22:30 Pantoprazole (Protonix Tab) 40 mg AC BREAKFAST PO Last administered on 09/10/18 06:14; Admin Dose 40 MG; Start 09/09/18 at 07:30 Solifenacin (Vesicare) 10 mg DAILY PO Last administered on 09/10/18 09:03; Admin Dose 10 MG; Start 09/09/18 at 09:00 Ibuprofen (Motrin) 600 mg Q6H PRN PO PAIN 1-3 Last administered on 09/09/18 17:15; Admin Dose 600 MG; Start 09/08/18 at 22:30 Levofloxacin/ Dextrose 100 ml @ 100 mls/hr Q24H IVPB Last administered on 09/09 22:15; Admin Dose 100 MLS/HR; Start 09/08/18 at 23:00 Albuterol/ Ipratropium (Duoneb) 3 ml Q8H RESP THERAPY HHN Last administered on 09/10/18 08:33; Admin Dose 3 ML; Start 09/08/18 at 22:45 Albuterol/ Ipratropium (Duoneb) 3 ml Q8H RESP THERAPY PRN HHN SHORTNESS OF BREATH; Start 09/08/18 at 23:00 Quetiapine Fumarate (Seroquel) 100 mg HS PO Last administered on 09/09/18 20:55; Admin Dose 100 MG; Start 09/08/18 at 22:00 Ergocalciferol (Drisdol) 50,000 unit Q7D PO Last administered on 09/10/18 09:03; Admin Dose 50,000 UNIT; Start 09/10/18 at 09:00 Rivaroxaban (Xarelto) 10 mg DAILY PO Last administered on 09/10/18 09:04; Admin Dose 10 MG; Start 09/09/18 at 09:00 Nitroglycerin (Nitroglycerin (Sl Tab) 0.4 Mg) 1 tab Q5M PRN SL ANGINA; Start 09/09/18 at 18:30 Nitroglycerin (Nitroglycerin 2% Oint) 0.5 inch Q8 TD Last administered on 09/10/18 06:14; Admin Dose 0.5 INCH; Start 09/09/18 at 22:00 Magnesium Sulfate 50 ml @ 25 mls/hr DAILY IVPB Last administered on 09/10/18 09:02; Admin Dose 25 MLS/HR; Start 09/10/18 at 09:00; Stop 09/12/18 at 10:59 Magnesium Sulfate 100 ml @ 25 mls/hr ONCE ONCE IVPB ; Start 09/10/18 at 16:00; Stop 09/10/18 at 19:59 Morphine Sulfate (morphine) 1 mg Q2H PRN IV SEVERE PAIN LEVEL 7-10; Start 09/10/18 at 10:00 Fluticasone/ Vilanterol (Breo Ellipta 200-25 Mcg Inh) 1 inh DAILY INH ; Start 09/10/18 at 10:00 Tiotropium [place] (Spiriva) 1 inh DAILY INH Last administered on 09/10/18at 11:48; Admin Dose 1 INH; Start 09/10/18 at 10:00 Montelukast Sodium (Singulair) 10 mg HS PO ; Start 09/10/18 at 21:00 Calcitriol (Rocaltrol) 0.25 mcg BID PO ; Start 09/10/18 at 21:00 Calcium Carbonate (Oyster Shell Calcium) 1.25 gm BID GTB ; Start 09/10/18 at 10:00 Diagnostic Test (Pha) (Accu-Chek) 1 ea AC MEALS XX ; Start 09/10/18 at 11:30 Diagnostic Test (Pha) (Accu-Chek) 1 ea 2 HOURS AFTER MEALS XX ; Start 09/10/18 at 10:00 CARMEN COLBERT MD Sep 10, 2018 12:38
[2018-09-10 14:54] VITALS: BP 128/61; PULSE 58; RESP 17
[2018-09-10] MEDS: CALCIUM CARBONATE 1.25 GM TAB GTB SCH ×3 (15:13→20:53)
[2018-09-10] MEDS ORDERED: MAGNESIUM SULFATE 4 GM/100 ML 100 ML IVPB ONE (16:00)
[2018-09-10] MEDS ORDERED: NA PHOSPHATE/BIPHOS 133 ML ENEMA PR ONE (16:00)
[2018-09-10 19:45] VITALS: BP 122/58; PULSE 58; RESP 18
[2018-09-10 20:38] VITALS: BP 114/58; PULSE 57
[2018-09-10] MEDS: QUETIAPINE 100 MG TAB PO SCH (20:41)
[2018-09-10] MEDS: ATORVASTATIN 40 MG TAB PO SCH (20:41)
[2018-09-10] MEDS: POLYETHYLENE GLYCOL 17 GM PACKET PO SCH (20:41)
[2018-09-10] MEDS: MONTELUKAST 10 MG TAB PO SCH (20:43)
[2018-09-10] MEDS: CALCITRIOL 0.25 MCG CAP PO SCH (20:43)
[2018-09-10] MEDS: ZOLPIDEM 5 MG TAB PO PRN (20:49)
[2018-09-10] MEDS: DOCUSATE SODIUM 250 MG CAP PO SCH (21:50)
[2018-09-10] MEDS: LEVOFLOXACIN 500MG/D5W (PMX) 100 ML IVPB SCH (22:46)
[2018-09-10] MEDS: NITROGLYCERIN (SL) 0.4 MG TAB SL PRN ×2 (22:50→23:24)
[2018-09-10] MEDS: morphine 2 MG INJ IV PRN (23:03)
[2018-09-11] MEDS ORDERED: traMADol 50 MG TAB PO PRN (00:30)
[2018-09-11] MEDS ORDERED: ACETAMINOPHEN 500 MG TAB PO PRN (00:30)
[2018-09-11 01:56] VITALS: BP 144/67; PULSE 58; RESP 20
[2018-09-11] MEDS: LEVOTHYROXINE 125 MCG TAB PO SCH (06:47)
[2018-09-11] MEDS: PANTOPRAZOLE (EC) 40 MG TAB PO SCH (06:47)
[2018-09-11] MEDS: ACCU-CHEK XX SCH ×6 (07:30→20:05)
[2018-09-11 07:50] VITALS: BP 114/60; PULSE 57
[2018-09-11] MEDS: ALBUTEROL/IPRATROPIUM (NEB) 3 ML AMP HHN SCH ×4 (08:00→23:22)
--- NOTE | 2018-09-11 09:13 | PN ---
Date/Time of Note Date/Time of Note DATE: 09/11/18 TIME: 09:12 Assessment/Plan VTE Prophylaxis Risk score (from Ns)>0 risk: 4 SCD applied (from Ns): No SCD contraindicated: other (on.) Pharmacological prophylaxis: LMWH Lines/Catheters IV Catheter Type (from Nrs): Peripheral IV Central line still needed: No Urinary Cath still in place: Yes Reason Cath still needed: urinary retention Assessment/Plan Assessment/Plan 1. Urinary tract infection. Urinary incontinence. 2, Chronic obstructive pulmonary disease exacerbation-worse comparing with yesterday.. 3. Wheezing improving 4. Anxiety depression 5. History of diabetes type 2, now better controlled. 6. Lactic acidosis- mild. 7. Hypothyroidism. Decrease the dose of levothyroxine. Previous dose was 200, came down to 150 mcg. 8. History of gastritis and gastroesophageal reflux disease. Continue Protonix. 9. Psoriasis. 10. Dyslipidemia. 11. Memory impairment. 12. Sleeplessness. 13. 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 14. Upon availability of more data, we will add to current report. 15. lbp 16.Very low mg and iron levels 17. Suspect multidrug abuse mainly sleeping pills and Tylenol 3. 18. On and off agitation dissatisfaction noncompliance to treatment. Result Diagram: Result Diagram: 09/11/18 0554 09/11/18 0553 Results 24hrs Laboratory Tests Test 09/10/18 11:52 09/10/18 13:31 09/10/18 20:22 09/11/18 05:53 Bedside Glucose 129 118 Troponin I < 0.012 Sodium Level 142 Potassium Level 3.7 Chloride Level 102 Carbon Dioxide Level 31 Anion Gap 9 Blood Urea Nitrogen 24 H Creatinine 0.72 Est Glomerular Filtrat Rate mL/min Glucose Level 98 Calcium Level 7.6 L Total Bilirubin 0.6 Direct Bilirubin 0.00 Indirect Bilirubin 0.6 Aspartate Amino 16 Transf (AST/SGOT) Alanine 26 Aminotransferase (AL T/SGPT) Alkaline Phosphatase 43 Total Protein 6.8 Albumin 3.8 Globulin 3.00 Albumin/Globulin 1.26 Ratio Test 09/11/18 05:54 White Blood Count 11.9 H Red Blood Count 3.74 L Hemoglobin 12.4 Hematocrit 37.4 Mean Corpuscular 100.0 Volume Mean Corpuscular 33.2 H Hemoglobin Mean Corpuscular 33.2 Hemoglobin Concent Red Cell 12.8 Distribution Width Platelet Count 234 Mean Platelet Volume 11.5 H Immature 0.800 H Granulocytes % Neutrophils % 72.3 Lymphocytes % 21.5 Monocytes % 5.2 Eosinophils % 0.1 Basophils % 0.1 Nucleated Red Blood 0.0 Cells % Immature 0.090 H Granulocytes # Neutrophils # 8.6 H Lymphocytes # 2.6 Monocytes # 0.6 Eosinophils # 0.0 Basophils # 0.0 Nucleated Red Blood 0.0 Cells # Phosphorus Level 4.4 Magnesium Level 2.6 #H Subjective 24 Hr Interval Summary Free Text/Dictation CP persists on and off. Unable to tolerate norco. wheezing persists. Subjective hx not possible: pt critical Constitutional: chills, poor po, requiring IVF, requiring O2; No no complaints, No improved, No diaphoresis, No disoriented, No febrile, No other Eyes: discharge; No no complaints, No pain, No redness, No visual change, No other ENT: pain, congestion, discharge, dysphagia; No no complaints, No bleeding, No sore throat, No other Respiratory: cough, pleuritic pain, shortness of breath; No no complaints, No pain, No sputum, No wheezing, No other Cardiovascular: chest pain, edema, lightheadedness, orthopenea, palpitations; No no complaints, No paroxysmal nocturnal dyspnea, No other Gastrointestinal: pain, constipation, decreased appetite, nausea; No no complaints, No blood, No diarrhea, No flatus, No passing stool, No vomiting, No other Genitourinary: dysuria; No no complaints, No bleeding, No discharge, No flank pain, No hematuria, No other Musculoskeletal: back pain, bone/joint pain; No no complaints, No neck pain, No restricted range of motion, No swelling, No other Skin: No no complaints, No bruising, No erythema, No laceration, No pruritis, No rash, No skin lesions, No other Neurologic: dizziness, headache; No no complaints, No confusion, No focal-weakness, No syncope, No seizure, No other Endocrine: No no complaints, No polyuria, No polydypsia, No dry skin, No temp intolerance, No other Lymphatic: No no complaints, No adenopathy, No tender nodes, No lymphadema, No other Psychological: anxiety; No no complaints, No nl mood/affect, No confusion, No depression, No suicidal, No other Exam/Review of Systems Exam Vitals Vital Signs Date Temp Pulse Resp B/P (MAP) Pulse Ox O2 O2 Flow FiO2 Time Delivery Rate 09/11/18 3.0 08:06 09/11/18 98.4 57 114/60 92 Nasal 07:50 (78) Cannula 09/11/18 20 01:56 Intake and Output 09/10/18 09/10/18 09/11/18 1515:00 23:00 07:00 IntakeIntake Total 350 ml 300 ml 100 ml OutputOutput Total 1200 ml BalanceBalance 350 ml -900 ml 100 ml Constitutional: alert, oriented, well developed, distress, frail Psych: anxiety, confusion, depression; No no complaints, No nl mood/affect, No suicidal, No other Head: normocephalic, atraumatic Eyes: EOMI, nl lids, PERRL; No nl conjunctiva, No nl sclera, No icteric, No fundi, disc, No other ENMT: nl external ears & nose Neck: supple, bruits, thyromegaly; No non-tender, No jvd, No masses, No nuchal rigidity, No other Respiratory: normal air movement, congested cough, crackles/rales, diminished breath sounds, wheezing; No clear to auscultation, No intercostal retraction, No labored breathing, No respirations, No tactile fremitus, No other Cardiovascular: nl pulses, bruits, edema, murmurs/extra sounds, systolic murmur; No regular rate and rhythm, No diastolic murmur, No gallop, No irregular rhythm, No jugular venous distention (JVD), No rub, No S3, No S4, No other Gastrointestinal: nl liver, spleen, non-tender, bowel sounds Genitourinary - Female: No nl adnexae, No nl external genitalia, No CMT, No CVA tenderness, No uterus, No other Musculoskeletal: nl gait and stance, joint tenderness, muscle tone, muscle weakness; No nl extremities to inspection, No range of motion, No spine non-tender, No swelling, No other Extremities: normal pulses, edema; No calf tenderness, No cyanosis, No clubbing, No pitting pedal edema, No palpable cord, No tenderness, No other 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, 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 Results Results 24hrs Laboratory Tests Test 09/10/18 11:52 09/10/18 13:31 09/10/18 20:22 09/11/18 05:53 Bedside Glucose 129 118 Troponin I < 0.012 Sodium Level 142 Potassium Level 3.7 Chloride Level 102 Carbon Dioxide Level 31 Anion Gap 9 Blood Urea Nitrogen 24 H Creatinine 0.72 Est Glomerular Filtrat Rate mL/min Glucose Level 98 Calcium Level 7.6 L Total Bilirubin 0.6 Direct Bilirubin 0.00 Indirect Bilirubin 0.6 Aspartate Amino 16 Transf (AST/SGOT) Alanine 26 Aminotransferase (AL T/SGPT) Alkaline Phosphatase 43 Total Protein 6.8 Albumin 3.8 Globulin 3.00 Albumin/Globulin 1.26 Ratio Test 09/11/18 05:54 White Blood Count 11.9 H Red Blood Count 3.74 L Hemoglobin 12.4 Hematocrit 37.4 Mean Corpuscular 100.0 Volume Mean Corpuscular 33.2 H Hemoglobin Mean Corpuscular 33.2 Hemoglobin Concent Red Cell 12.8 Distribution Width Platelet Count 234 Mean Platelet Volume 11.5 H Immature 0.800 H Granulocytes % Neutrophils % 72.3 Lymphocytes % 21.5 Monocytes % 5.2 Eosinophils % 0.1 Basophils % 0.1 Nucleated Red Blood 0.0 Cells % Immature 0.090 H Granulocytes # Neutrophils # 8.6 H Lymphocytes # 2.6 Monocytes # 0.6 Eosinophils # 0.0 Basophils # 0.0 Nucleated Red Blood 0.0 Cells # Phosphorus Level 4.4 Magnesium Level 2.6 #H Medications Medication Current Medications Zolpidem Tartrate (Ambien) 10 mg HS PRN PO INSOMNIA Last administered on 09/10/18at 20:49; Admin Dose 10 MG; Start 09/08/18 at 04:00 Albuterol (Proventil 0.083% (Neb)) 1.25 mg Q6H RESP THERAPY PRN NEB WHEEZING AND SOB; Start 09/08/18 at 22:30 Amlodipine Besylate (Norvasc) 10 mg DAILY PO Last administered on 09/10/18at 09:04; Admin Dose 10 MG; Start 09/09/18 at 09:00 Aspirin (Halfprin) 81 mg DAILY PO Last administered on 09/10/18at 09:04; Admin Dose 81 MG; Start 09/09/18 at 09:00 Atorvastatin Calcium (Lipitor) 40 mg QHS PO Last administered on 09/10/18 20:41; Admin Dose 40 MG; Start 09/09/18 at 21:00 Gabapentin (Neurontin) 800 mg BID PO Last administered on 09/10/18 20:41; Admin Dose 800 MG; Start 09/08/18 at 22:30 Isosorbide Mononitrate (Imdur) 30 mg DAILY PO Last administered on 09/10/18 09:04; Admin Dose 30 MG; Start 09/09/18 at 09:00 Levothyroxine Sodium (Synthroid) 125 mcg BEFORE BREAKFAST PO Last administered on 09/11/18 06:47; Admin Dose 125 MCG; Start 09/09/18 at 07:00 Pantoprazole (Protonix Tab) 40 mg AC BREAKFAST PO Last administered on 09/11/18 06:47; Admin Dose 40 MG; Start 09/09/18 at 07:30 Solifenacin (Vesicare) 10 mg DAILY PO Last administered on 09/10/18 09:03; Admin Dose 10 MG; Start 09/09/18 at 09:00 Ibuprofen (Motrin) 600 mg Q6H PRN PO PAIN 1-3 Last administered on 09/09/18 17:15; Admin Dose 600 MG; Start 09/08/18 at 22:30 Levofloxacin/ Dextrose 100 ml @ 100 mls/hr Q24H IVPB Last administered on 09/10/18 22:46; Admin Dose 100 MLS/HR; Start 09/08/18 at 23:00 Albuterol/ Ipratropium (Duoneb) 3 ml Q8H RESP THERAPY HHN Last administered on 09/10/18 16:15; Admin Dose 3 ML; Start 09/08/18 at 22:45 Albuterol/ Ipratropium (Duoneb) 3 ml Q8H RESP THERAPY PRN HHN SHORTNESS OF BREATH; Start 09/08/18 at 23:00 Quetiapine Fumarate (Seroquel) 100 mg HS PO Last administered on 09/10/18 20:41; Admin Dose 100 MG; Start 09/08/18 at 22:00 Ergocalciferol (Drisdol) 50,000 unit Q7D PO Last administered on 09/10/18 09:03; Admin Dose 50,000 UNIT; Start 09/10/18 at 09:00 Rivaroxaban (Xarelto) 10 mg DAILY PO Last administered on 09/10/18 09:04; Admin Dose 10 MG; Start 09/09/18 at 09:00 Nitroglycerin (Nitroglycerin (Sl Tab) 0.4 Mg) 1 tab Q5M PRN SL ANGINA Last a dministered on 09/10/18 23:24; Admin Dose 1 TAB; Start 09/09/18 at 18:30 Magnesium Sulfate 50 ml @ 25 mls/hr DAILY IVPB Last administered on 09/10/18 09:02; Admin Dose 25 MLS/HR; Start 09/10/18 at 09:00; Stop 09/12/18 at 10:59 Morphine Sulfate (morphine) 1 mg Q2H PRN IV SEVERE PAIN LEVEL 7-10 Last administered on 09/10/18 23:03; Admin Dose 1 MG; Start 09/10/18 at 10:00 Fluticasone/ Vilanterol (Breo Ellipta 200-25 Mcg Inh) 1 inh DAILY INH ; Start 09/10/18 at 10:00 Tiotropium [place] (Spiriva) 1 inh DAILY INH Last administered on 09/10/18 11:48; Admin Dose 1 INH; Start 09/10/18 at 10:00 Montelukast Sodium (Singulair) 10 mg HS PO Last administered on 09/10/18 20:43; Admin Dose 10 MG; Start 09/10/18 at 21:00 Calcitriol (Rocaltrol) 0.25 mcg BID PO Last administered on 09/10/18 20:43; Admin Dose 0.25 MCG; Start 09/10/18 at 21:00 Calcium Carbonate (Oyster Shell Calcium) 1.25 gm BID GTB Last administered on 09/10/18 20:53; Admin Dose 1.25 GM; Start 09/10/18 at 10:00 Diagnostic Test (Pha) (Accu-Chek) 1 ea AC MEALS XX ; Start 09/10/18 at 11:30 Diagnostic Test (Pha) (Accu-Chek) 1 ea 2 HOURS AFTER MEALS XX Last administered on 09/10/18at 20:38; Admin Dose 1 EA; Start 09/10/18 at 10:00 Polyethylene Glycol (Miralax) 17 gm BID PO Last administered on 09/10/18at 20:41; Admin Dose 17 GM; Start 09/10/18 at 21:00 Docusate Sodium (Colace) 250 mg BID PO Last administered on 09/10/18at 21:50; Admin Dose 250 MG; Start 09/10/18 at 21:00 Metoprolol Tartrate (Lopressor) 25 mg BID PO ; Start 09/10/18 at 21:00 Acetaminophen (Tylenol Tab) 500 mg Q8 PRN PO MILD PAIN(1-3)OR ELEVATED TEMP; Start 09/11/18 at 00:30 Tramadol HCl (Ultram) 50 mg Q12 PRN PO PAIN; Start 09/11/18 at 00:30 CARMEN COLBERT MD Sep 11, 2018 09:13
[2018-09-11] MEDS ORDERED: POTASSIUM PHOSPHATE 30 MM in SOD CHLORIDE 0.9% 250 ML IVPB ONE (09:30)
[2018-09-11] MEDS: CALCITRIOL 0.25 MCG CAP PO SCH ×2 (10:20→21:26)
[2018-09-11] MEDS: CALCIUM CARBONATE 1.25 GM TAB GTB SCH ×2 (10:20→21:10)
[2018-09-11] MEDS: ASPIRIN (EC) 81 MG TAB PO SCH (10:22)
[2018-09-11] MEDS: SOLIFENACIN 5 MG TAB PO SCH (10:22)
[2018-09-11] MEDS: AMLODIPINE 10 MG TAB PO SCH (10:25)
[2018-09-11] MEDS: DOCUSATE SODIUM 250 MG CAP PO SCH ×2 (10:25→21:10)
[2018-09-11] MEDS: GABAPENTIN 400 MG CAP PO SCH ×2 (10:26→21:11)
[2018-09-11] MEDS: METOPROLOL 25 MG TAB PO SCH ×2 (10:26→21:11)
[2018-09-11] MEDS: POLYETHYLENE GLYCOL 17 GM PACKET PO SCH ×2 (10:26→21:11)
[2018-09-11] MEDS: ISOSORBIDE MONONITRATE(SR)30 MG TAB PO SCH (10:27)
[2018-09-11] MEDS: TIOTROPIUM 18 MCG CAPSULE INHA DEV INH SCH (10:28)
[2018-09-11] MEDS: FLUTICASONE/VILANTEROL 200-25 INH DEVICE INH SCH (10:28)
[2018-09-11] MEDS: RIVAROXABAN 10 MG TABLET PO SCH (10:29)
[2018-09-11] MEDS: morphine 2 MG INJ IV PRN (10:29)
--- NOTE | 2018-09-11 13:23 | CONS ---
Assessment/Plan Assessment/Plan Hospital Course (Demo Recall) Chest pain: Multiple troponins this admission have been negative and EKG on admission was nonischemic. She had a normal Lexiscan 2014 but these symptoms are new onset and she certainly has CAD risk factors. Other possibilities include GERD as she has been laying down throughout the admission and it is more of a burning sensation. She is already on a PPI. Will check an echo and Lexiscan to be thorough. UTI Chronic respiratory failure COPD DM HTN HL -check one more troponin -stat EKG if any chest symptoms -echo -Lexiscan tomorrow afternoon -continue ASA and lipitor -metoprolol 25mg BID -imdur -amlodipine Consultation Date/Type/Reason Admit Date/Time Sep 07, 2018 at 19:38 Date of Consultation: Sep 11, 2018 Type of Consult Cardiology Reason for Consultation Chest pain Requesting Provider: CARMEN COLBERT MD Date/Time of Note DATE: 09/11/18 TIME: 13:15 Hx of Present Illness 78 yo F with a h/o COPD and chronic respiratory failure, DM, HTN, HL, who was admitted for dyspnea and dysuria and is being treated for UTI. While she has been here she has had episodes of chest pain which she describes as a burning sensation. The episodes occur at rest as she has been in bed throughout the admission. They come on at random times and are relieved only by morphine. She has been given SL NTG but she does not think it helps. Multiple troponins throughout her stay have been negative and an EKG on admission was normal. None obtained during last night's episode. Prior to this admission, she has not had chest pain and she can go up the stairs of her house (15 steps) without any chest pain. No prior [place]/known CAD. per HPI Past Medical History per hPI Home Meds Reported Medications Cholecalciferol (Vitamin D3) (Vitamin D-3) 2,000 Unit Tablet, 2000 UNIT PO DAILY, TAB 09/07/18 Gabapentin* (Gabapentin*) 800 Mg Tablet, 800 MG PO BID, #90 TAB 09/07/18 Albuterol Sulfate* (Albuterol Sulfate* Neb) 0.083%-3 Ml Neb, 1.25 MG NEB Q6H PRN for WHEEZING AND SOB, #30 VIAL 09/07/18 Albuterol/Ipratropium* (Combivent Respimat*) 20-100 Mcg/Inh - 4 Gm Aer.w.adap, 1 PUFF INHALATION QID, #1 INHALER 09/07/18 Rivaroxaban* (Xarelto*) 10 Mg Tablet, 10 MG PO DAILY, TAB 09/07/18 Solifenacin* (Vesicare*) 10 Mg Tablet, 10 MG PO DAILY, TAB 09/07/18 Metoprolol Tartrate* (Lopressor*) 25 Mg Tab, 25 MG PO BID, #60 TAB 09/07/18 Quetiapine Fumarate* (Seroquel*) 100 Mg Tablet, 100 MG PO HS, #30 TAB 09/07/18 Atorvastatin* (Atorvastatin*) 40 Mg Tablet, 40 MG PO QHS, #30 TAB 09/07/18 Pantoprazole* (Pantoprazole*) 40 Mg Tablet.dr, 40 MG PO AC BREAKFAST, TAB 09/07/18 Isosorbide Mononitrate* (Isosorbide Mononitrate*) 30 Mg Tab.er.24h, 30 MG PO DAILY, TAB 09/07/18 Zolpidem Tartrate* (Zolpidem Tartrate*) 10 Mg Tablet, 10 MG PO QHS PRN for INSOMNIA, #30 TAB 09/07/18 Aspirin* (Aspirin* EC) 81 Mg Tablet.dr, 81 MG PO DAILY, TAB 09/07/18 Amlodipine Besylate* (Amlodipine Besylate*) 10 Mg Tablet, 10 MG PO DAILY, #30 TAB 09/07/18 Ibuprofen* (Ibuprofen*) 600 Mg Tablet, 600 MG PO NEEDED, TAB 09/07/18 Levothyroxine Sodium* (Synthroid*) 125 Mcg Tablet, 125 MCG PO BEFORE BREAKFAST, #30 TAB 09/07/18 Acetaminophen with Codeine (Acetaminophen-Cod #3 Tablet) 1 Each Tablet, 1 TAB PO NEEDED, #20 TAB 09/07/18 Ergocalciferol (Vitamin D2) (VITAMIN D2) 50,000 Unit Capsule, 24117 UNIT PO Q7D, CAP 09/07/18 Ferrous Sulfate* (Ferrous Sulfate*) 325 Mg Tabec, 325 MG PO DAILY, TAB 09/07/18 Discontinued Reported Medications Pregabalin* (Lyrica*) 75 Mg Capsule, 75 MG PO DAILY, CAP 06/08/16 Ibuprofen* (Motrin*) 600 Mg Tab, 600 MG PO TID, TAB 06/08/16 Levothyroxine Sodium* (Levoxyl*) 125 Mcg Tablet, 125 MCG PO BEFORE BREAKFAST, #30 TAB 06/08/16 Cholecalciferol* (Vitamin D3*) 2,000 Unit Cap, 2000 UNIT PO DAILY, CAP 12/09/15 Edoxaban Tosylate (Savaysa) 30 Mg Tablet, 30 MG PO DAILY, TAB 12/09/15 Albuterol/Ipratropium* (Combivent Respimat*) 20-100 Mcg/Inh - 4 Gm Aer.w.adap, 1 PUFF INHALATION QID, #1 INHALER 12/09/15 Amlodipine Besylate* (Amlodipine Besylate*) 10 Mg Tablet, 10 MG PO DAILY, TAB 11/19/14 Diazepam* (Diazepam*) 5 Mg Tablet, 5 MG PO BID PRN for INSOMNIA, TAB 11/19/14 Zolpidem Tartrate* (Zolpidem Tartrate*) 10 Mg Tablet, 10 MG PO HS PRN for INSOMNIA, TAB 11/19/14 Quetiapine Fumarate* (Quetiapine Fumarate*) 100 Mg Tablet, 100 MG PO HS, TAB 11/19/14 Metoprolol Tartrate* (Lopressor*) 25 Mg Tab, 25 MG PO BID, TAB 11/19/14 Pantoprazole* (Pantoprazole*) 40 Mg Tablet.dr, 40 MG PO AC BREAKFAST, TAB 11/19/14 Nitroglycerin* (Nitroglycerin* SL) 0.4 Mg Tab.subl, 0.4 MG SL Q5MIN PRN for CHEST PAIN, BOTTLE 11/19/14 Isosorbide Dinitrate* (Isosorbide Dinitrate*) 30 Mg Tablet, 30 MG PO DAILY, TAB 08/16/14 Acetaminophen-Codeine* (Acetaminophen-Cod #3*) 300-30 Mg Tab, 1 TAB PO Q8 PRN for PAIN, TAB 06/24/14 Gabapentin* (Neurontin*) 800 Mg Tablet, 800 MG PO QID, TAB 06/24/14 Aspirin* (Aspirin* (EC)) 81 Mg Tablet.dr, 81 MG PO DAILY, TAB 06/24/14 Discontinued Scripts Albuterol Sulfate* (Proair HFA*) 8.5 Gm Hfa.aer.ad, 2 PUFF INH Q6, #1 INHALER Prov:PEYMAN MARINO MD 06/12/16 Medications Current Medications Zolpidem Tartrate (Ambien) 10 mg HS PRN PO INSOMNIA Last administered on 09/10/18 20:49; Admin Dose 10 MG; Start 09/08/18 at 04:00 Albuterol (Proventil 0.083% (Neb)) 1.25 mg Q6H RESP THERAPY PRN NEB WHEEZING AND SOB; Start 09/08/18 at 22:30 Amlodipine Besylate (Norvasc) 10 mg DAILY PO Last administered on 09/11/18 10:25; Admin Dose 10 MG; Start 09/09/18 at 09:00 Aspirin (Halfprin) 81 mg DAILY PO Last administered on 09/11/18 10:22; Admin Dose 81 MG; Start 09/09/18 at 09:00 Atorvastatin Calcium (Lipitor) 40 mg QHS PO Last administered on 09/10/18 20:41; Admin Dose 40 MG; Start 09/09/18 at 21:00 Gabapentin (Neurontin) 800 mg BID PO Last administered on 09/11/18 10:26; Ad min Dose 800 MG; Start 09/08/18 at 22:30 Isosorbide Mononitrate (Imdur) 30 mg DAILY PO Last administered on 09/11/18 10:27; Admin Dose 30 MG; Start 09/09/18 at 09:00 Levothyroxine Sodium (Synthroid) 125 mcg BEFORE BREAKFAST PO Last administered on 09/11/18 06:47; Admin Dose 125 MCG; Start 09/09/18 at 07:00 Pantoprazole (Protonix Tab) 40 mg AC BREAKFAST PO Last administered on 09/11/18 06:47; Admin Dose 40 MG; Start 09/09/18 at 07:30 Solifenacin (Vesicare) 10 mg DAILY PO Last administered on 09/11/18 10:22; Admin Dose 10 MG; Start 09/09/18 at 09:00 Ibuprofen (Motrin) 600 mg Q6H PRN PO PAIN 1-3 Last administered on 09/09/18 17:15; Admin Dose 600 MG; Start 09/08/18 at 22:30 Levofloxacin/ Dextrose 100 ml @ 100 mls/hr Q24H IVPB Last administered on 09/10/18 22:46; Admin Dose 100 MLS/HR; Start 09/08/18 at 23:00 Albuterol/ Ipratropium (Duoneb) 3 ml Q8H RESP THERAPY HHN Last administered on 09/10/18 16:15; Admin Dose 3 ML; Start 09/08/18 at 22:45 Albuterol/ Ipratropium (Duoneb) 3 ml Q8H RESP THERAPY PRN HHN SHORTNESS OF BREATH; Start 09/08/18 at 23:00 Quetiapine Fumarate (Seroquel) 100 mg HS PO Last administered on 09/10/18 20:41; Admin Dose 100 MG; Start 09/08/18 at 22:00 Ergocalciferol (Drisdol) 50,000 unit Q7D PO Last administered on 09/10/18 09:03; Admin Dose 50,000 UNIT; Start 09/10/18 at 09:00 Rivaroxaban (Xarelto) 10 mg DAILY PO Last administered on 09/11/18 10:29; Admin Dose 10 MG; Start 09/09/18 at 09:00 Nitroglycerin (Nitroglycerin (Sl Tab) 0.4 Mg) 1 tab Q5M PRN SL ANGINA Last administered on 09/10/18 23:24; Admin Dose 1 TAB; Start 09/09/18 at 18:30 Magnesium Sulfate 50 ml @ 25 mls/hr DAILY IVPB Last administered on 09/10/18 09:02; Admin Dose 25 MLS/HR; Start 09/10/18 at 09:00; Stop 09/12/18 at 10:59 Morphine Sulfate (morphine) 1 mg Q2H PRN IV SEVERE PAIN LEVEL 7-10 Last administered on 09/11/18 10:29; Admin Dose 1 MG; Start 09/10/18 at 10:00 Fluticasone/ Vilanterol (Breo Ellipta 200-25 Mcg Inh) 1 inh DAILY INH Last administered on 09/11/18 10:28; Admin Dose 1 INH; Start 09/10/18 at 10:00 Tiotropium [place] (Spiriva) 1 inh DAILY INH Last administered on 09/11/18 10:28; Admin Dose 1 INH; Start 09/10/18 at 10:00 Montelukast Sodium (Singulair) 10 mg HS PO Last administered on 09/10/18 20:43; Admin Dose 10 MG; Start 09/10/18 at 21:00 Calcitriol (Rocaltrol) 0.25 mcg BID PO Last administered on 09/11/18 10:20; Admin Dose 0.25 MCG; Start 09/10/18 at 21:00 Calcium Carbonate (Oyster Shell Calcium) 1.25 gm BID GTB Last administered on 09/11/18 10:20; Admin Dose 1.25 GM; Start 09/10/18 at 10:00 Diagnostic Test (Pha) (Accu-Chek) 1 ea AC MEALS XX ; Start 09/10/18 at 11:30 Diagnostic Test (Pha) (Accu-Chek) 1 ea 2 HOURS AFTER MEALS XX Last administered on 09/10/18 20:38; Admin Dose 1 EA; Start 09/10/18 at 10:00 Polyethylene Glycol (Miralax) 17 gm BID PO Last administered on 09/11/18 10:26; Admin Dose 17 GM; Start 09/10/18 at 21:00 Docusate Sodium (Colace) 250 mg BID PO Last administered on 09/11/18 10:25; Admin Dose 250 MG; Start 09/10/18 at 21:00 Metoprolol Tartrate (Lopressor) 25 mg BID PO Last administered on 09/11/18 10:26; Admin Dose 25 MG; Start 09/10/18 at 21:00 Acetaminophen (Tylenol Tab) 500 mg Q8 PRN PO MILD PAIN(1-3)OR ELEVATED TEMP; Start 09/11/18 at 00:30 Tramadol HCl (Ultram) 50 mg Q12 PRN PO PAIN; Start 09/11/18 at 00:30 Potassium Phosphate 30 mm/ Sodium Chloride 260 ml @ 65 mls/hr ONCE ONCE IVPB Last administered on 09/11/18 11:53; Admin Dose 65 MLS/HR; Start 09/11/18 at 09:30; Stop 09/11/18 at 13:29 Allergies: Coded Allergies: Iodinated Contrast- Oral and IV Dye (Verified Allergy, Mild, 09/07/18) Past Surgical History Past Surgical Hx: appendectomy, cholecystectomy, other (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) Social History Alcohol Use: none Smoking Status: Former smoker Drug Use: none Exam/Review of Systems Vital Signs Vitals Vital Signs Date Temp Pulse Resp B/P (MAP) Pulse Ox O2 O2 Flow FiO2 Time Delivery Rate 09/11/18 3.0 08:06 09/11/18 98.4 57 114/60 92 Nasal 07:50 (78) Cannula 09/11/18 20 01:56 Intake and Output 09/10/18 09/10/18 09/11/18 1515:00 23:00 07:00 IntakeIntake Total 350 ml 300 ml 100 ml OutputOutput Total 1200 ml BalanceBalance 350 ml -900 ml 100 ml Exam Constitutional: alert, oriented Psych: no complaints, nl mood/affect Head: normocephalic, atraumatic Neck: supple; No jvd Respiratory: other (ronchi); No clear to auscultation, No crackles/rales Cardiovascular: regular rate and rhythm; No edema, No systolic murmur Gastrointestinal: soft, non-tender; No distended Neurological: nl mental status, nl speech Labs Result Diagram: 09/11/18 0554 09/11/18 0554 Results 24hrs Laboratory Tests Test 09/10/18 13:31 09/10/18 20:22 09/11/18 05:53 09/11/18 05:54 Troponin I < 0.012 < 0.012 Bedside Glucose 118 Sodium Level 142 141 Potassium Level 3.7 3.5 Chloride Level 102 104 Carbon Dioxide Level 31 23 Anion Gap 9 14 H Blood Urea Nitrogen 24 H 24 H Creatinine 0.72 0.77 Est Glomerular Filtrat Rate mL/min Glucose Level 98 100 Calcium Level 7.6 L 7.4 L Ionized Calcium 0.9 L (Measured) Total Bilirubin 0.6 Direct Bilirubin 0.00 Indirect Bilirubin 0.6 Aspartate Amino 16 Transf (AST/SGOT) Alanine 26 Aminotransferase (AL T/SGPT) Alkaline Phosphatase 43 Total Protein 6.8 Albumin 3.8 Globulin 3.00 Albumin/Globulin 1.26 Ratio White Blood Count 11.9 H Red Blood Count 3.74 L Hemoglobin 12.4 Hematocrit 37.4 Mean Corpuscular 100.0 Volume Mean Corpuscular 33.2 H Hemoglobin Mean Corpuscular 33.2 Hemoglobin Concent Red Cell 12.8 Distribution Width Platelet Count 234 Mean Platelet Volume 11.5 H Immature 0.800 H Granulocytes % Neutrophils % 72.3 Lymphocytes % 21.5 Monocytes % 5.2 Eosinophils % 0.1 Basophils % 0.1 Nucleated Red Blood 0.0 Cells % Immature 0.090 H Granulocytes # Neutrophils # 8.6 H Lymphocytes # 2.6 Monocytes # 0.6 Eosinophils # 0.0 Basophils # 0.0 Nucleated Red Blood 0.0 Cells # Phosphorus Level 4.4 Magnesium Level 2.6 #H Medications Medications Current Medications Zolpidem Tartrate (Ambien) 10 mg HS PRN PO INSOMNIA Last administered on 09/10/18 20:49; Admin Dose 10 MG; Start 09/08/18 at 04:00 Albuterol (Proventil 0.083% (Neb)) 1.25 mg Q6H RESP THERAPY PRN NEB WHEEZING AND SOB; Start 09/08/18 at 22:30 Amlodipine Besylate (Norvasc) 10 mg DAILY PO Last administered on 09/11/18 10:25; Admin Dose 10 MG; Start 09/09/18 at 09:00 Aspirin (Halfprin) 81 mg DAILY PO Last administered on 09/11/18 10:22; Admin Dose 81 MG; Start 09/09/18 at 09:00 Atorvastatin Calcium (Lipitor) 40 mg QHS PO Last administered on 09/10/18 20:41; Admin Dose 40 MG; Start 09/09/18 at 21:00 Gabapentin (Neurontin) 800 mg BID PO Last administered on 09/11/18 10:26; Admin Dose 800 MG; Start 09/08/18 at 22:30 Isosorbide Mononitrate (Imdur) 30 mg DAILY PO Last administered on 09/11/18 10:27; Admin Dose 30 MG; Start 09/09/18 at 09:00 Levothyroxine Sodium (Synthroid) 125 mcg BEFORE BREAKFAST PO Last administered on 09/11/18 06:47; Admin Dose 125 MCG; Start 09/09/18 at 07:00 Pantoprazole (Protonix Tab) 40 mg AC BREAKFAST PO Last administered on 09/11/18 06:47; Admin Dose 40 MG; Start 09/09/18 at 07:30 Solifenacin (Vesicare) 10 mg DAILY PO Last administered on 09/11/18 10:22; Admin Dose 10 MG; Start 09/09/18 at 09:00 Ibuprofen (Motrin) 600 mg Q6H PRN PO PAIN 1-3 Last administered on 09/09/18 17:15; Admin Dose 600 MG; Start 09/08/18 at 22:30 Levofloxacin/ Dextrose 100 ml @ 100 mls/hr Q24H IVPB Last administered on 09/10/18 22:46; Admin Dose 100 MLS/HR; Start 09/08/18 at 23:00 Albuterol/ Ipratropium (Duoneb) 3 ml Q8H RESP THERAPY HHN Last administered on 09/10/18 16:15; Admin Dose 3 ML; Start 09/08/18 at 22:45 Albuterol/ Ipratropium (Duoneb) 3 ml Q8H RESP THERAPY PRN HHN SHORTNESS OF BREATH; Start 09/08/18 at 23:00 Quetiapine Fumarate (Seroquel) 100 mg HS PO Last administered on 09/10/18 20:41; Admin Dose 100 MG; Start 09/08/18 at 22:00 Ergocalciferol (Drisdol) 50,000 unit Q7D PO Last administered on 09/10/18 09:03; Admin Dose 50,000 UNIT; Start 09/10/18 at 09:00 Rivaroxaban (Xarelto) 10 mg DAILY PO Last administered on 09/11/18 10:29; Admin Dose 10 MG; Start 09/09/18 at 09:00 Nitroglycerin (Nitroglycerin (Sl Tab) 0.4 Mg) 1 tab Q5M PRN SL ANGINA Last a dministered on 09/10/18 23:24; Admin Dose 1 TAB; Start 09/09/18 at 18:30 Magnesium Sulfate 50 ml @ 25 mls/hr DAILY IVPB Last administered on 09/10/18 09:02; Admin Dose 25 MLS/HR; Start 09/10/18 at 09:00; Stop 09/12/18 at 10:59 Morphine Sulfate (morphine) 1 mg Q2H PRN IV SEVERE PAIN LEVEL 7-10 Last administered on 09/11/18 10:29; Admin Dose 1 MG; Start 09/10/18 at 10:00 Fluticasone/ Vilanterol (Breo Ellipta 200-25 Mcg Inh) 1 inh DAILY INH Last administered on 09/11/18 10:28; Admin Dose 1 INH; Start 09/10/18 at 10:00 Tiotropium [place] (Spiriva) 1 inh DAILY INH Last administered on 09/11/18 10:28; Admin Dose 1 INH; Start 09/10/18 at 10:00 Montelukast Sodium (Singulair) 10 mg HS PO Last administered on 09/10/18 20:43; Admin Dose 10 MG; Start 09/10/18 at 21:00 Calcitriol (Rocaltrol) 0.25 mcg BID PO Last administered on 09/11/18 10:20; Admin Dose 0.25 MCG; Start 09/10/18 at 21:00 Calcium Carbonate (Oyster Shell Calcium) 1.25 gm BID GTB Last administered on 09/11/18 10:20; Admin Dose 1.25 GM; Start 09/10/18 at 10:00 Diagnostic Test (Pha) (Accu-Chek) 1 ea AC MEALS XX ; Start 09/10/18 at 11:30 Diagnostic Test (Pha) (Accu-Chek) 1 ea 2 HOURS AFTER MEALS XX Last administered on 09/10/18 20:38; Admin Dose 1 EA; Start 09/10/18 at 10:00 Polyethylene Glycol (Miralax) 17 gm BID PO Last administered on 09/11/18 10:26; Admin Dose 17 GM; Start 09/10/18 at 21:00 Docusate Sodium (Colace) 250 mg BID PO Last administered on 09/11/18 10:25; Admin Dose 250 MG; Start 09/10/18 at 21:00 Metoprolol Tartrate (Lopressor) 25 mg BID PO Last administered on 09/11/18 10:26; Admin Dose 25 MG; Start 09/10/18 at 21:00 Acetaminophen (Tylenol Tab) 500 mg Q8 PRN PO MILD PAIN(1-3)OR ELEVATED TEMP; Start 09/11/18 at 00:30 Tramadol HCl (Ultram) 50 mg Q12 PRN PO PAIN; Start 09/11/18 at 00:30 Potassium Phosphate 30 mm/ Sodium Chloride 260 ml @ 65 mls/hr ONCE ONCE IVPB Last administered on 09/11/18 11:53; Admin Dose 65 MLS/HR; Start 09/11/18 at 09:30; Stop 09/11/18 at 13:29 JULIUS CARREON Sep 11, 2018 13:23
[2018-09-11 15:40] VITALS: BP 127/61; PULSE 63; RESP 17
--- NOTE | 2018-09-11 18:01 | RADRPT ---
Echocardiogram Report Patient Name: WYATT CROWPatient ID: [id number] : 1940 (78y 6m)Study Date: 09/11/2018 1:31:08 PM Gender: FAccession #: [id number] Tech: Andre Hays [facility] Location: [id number] Ref.Physician: JULIUS BILLS Height(Cm): BSA: Weight(Kg): Quality: AdequateAccount #: Procedures: Echocardiographic Report: Transthoracic echocardiogram with complete 2D, M-Mode, and doppler examination. Indications: Chest Pain, and Dyspnea. Measurements: 2D/M Mode Doppler Measurement Value Normal Range Measurement Value Normal Range LVIDd 2D 3.8 [ 3.8 - 5.2 ] cm AV Peak Enio 1.3 [ 100.0 - 170.0 ] cm/sec LVIDs 2D 2.2 [ 2.2 - 3.5 ] cm AV Peak PG 7.0 [ 2.0 - 9.0 ] mmHg LVPWd 2D 1.5 [ 0.6 - 0.9 ] cm LVOT Peak Enio 1.0 [ 70.0 - 110.0 ] cm/sec IVSd 2D 1.5 [ 0.6 - 0.9 ] cm LVOT Peak PG 4.0 [ 2.0 - 6.0 ] mmHg AoR Diam 2D 2.9 [ 2.3 - 3.1 ] cm MV E Peak Enio 0.8 [ 60.0 - 130.0 ] cm/sec EDV 2D 63.1 [ 46.0 - 106.0 ] ml MV A Peak Enio 1.2 [ 100.0 - 120.0 ] cm/sec ESV 2D 16.4 [ 14.0 - 42.0 ] ml MV E/A 0.7 [ 0.8 - 1.5 ] ratio EF 2D 74.0 [ 54.0 - 74.0 ] percent MV Decel Time 324 [ 104 - 258 ] msec LA Dimen 2D 3.3 [ 2.7 - 3.8 ] cm Lat E` Enio 0.1 [ 10.0 - 15.0 ] cm/sec Lateral E/E` 8.9 [ 1.0 - 2.0 ] ratio MV E/A 0.7 [ 0.8 - 1.5 ] ratio Findings: Left Ventricle: Normal left ventricular systolic function. Normal left ventricular cavity size. Mild concentric left ventricular hypertrophy. Ejection fraction is visually estimated at 65 %. Tissue Doppler/Mitral Doppler indices are consistent with impaired relaxation (Stage I diastolic dysfunction). Right Ventricle: Normal right ventricular size. Normal right ventricular systolic function. Left Atrium: There is mild enlargement of left atrium. Right Atrium: The right atrium is normal in size. Mitral Valve: Normal appearance and function of the mitral valve with trace physiologic regurgitation. Aortic Valve: Aortic sclerosis without significant stenosis. No aortic regurgitation. Tricuspid Valve: Normal appearance of the tricuspid valve. Unable to obtain RVSP due to minimal presence of tricuspid regurgitation. No evidence of tricuspid regurgitation. Pulmonic Valve: Pulmonic valve not well visualized. Pericardium: Normal pericardium with no significant pericardial effusion. Aorta: Normal aortic root. IVC: Normal size and normal respiratory collapse consistent with normal right atrial pressure. Conclusions: Normal left ventricular systolic function. Normal left ventricular cavity size. Mild concentric left ventricular hypertrophy. Ejection fraction is visually estimated at 65 %. Tissue Doppler/Mitral Doppler indices are consistent with impaired relaxation (Stage I diastolic dysfunction). Aortic sclerosis without significant stenosis. No aortic regurgitation. Unable to obtain RVSP due to minimal presence of tricuspid regurgitation.Normal size and normal respiratory collapse consistent with normal right atrial pressure. Electronically Signed By: Julius Bills 2018-09-11 18:00:38 PDT
--- NOTE | 2018-09-11 19:14 | CONS ---
Assessment/Plan Assessment/Plan Problems: (1) Hypocalcemia Status: Chronic Comment: Markedly improved and this may account for the decrease in the chest wall pain. Please note he can get significant cardiac dysfunction with a hypocalcemia especially if it is chronic as it is in this patient. Patient's calcium levels are coming up nicely and the magnesium has also been replaced. 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 Requesting Provider: CARMEN COLBERT MD Date/Time of Note DATE: 09/11/18 TIME: 19:13 24 HR Interval Summary Free Text/Dictation Patient reports her chest pain has improved otherwise limited ability to converse Exam/Review of Systems Exam Vitals Vital Signs Date Temp Pulse Resp B/P (MAP) Pulse Ox O2 O2 Flow FiO2 Time Delivery Rate 09/11/18 99.3 63 17 127/61 97 Room Air 2.0 15:40 (83) Intake and Output 09/10/18 09/10/18 09/11/18 1515:00 23:00 07:00 IntakeIntake Total 350 ml 300 ml 100 ml OutputOutput Total 1200 ml BalanceBalance 350 ml -900 ml 100 ml Exam No change in exam Results Result Diagram: 09/11/18 0554 09/11/18 0554 Results 24hrs Laboratory Tests Test 09/10/18 20:22 09/11/18 05:53 09/11/18 05:54 09/11/18 14:08 Bedside Glucose 118 Sodium Level 142 141 Potassium Level 3.7 3.5 Chloride Level 102 104 Carbon Dioxide Level 31 23 Anion Gap 9 14 H Blood Urea Nitrogen 24 H 24 H Creatinine 0.72 0.77 Est Glomerular Filtrat Rate mL/min Glucose Level 98 100 Calcium Level 7.6 L 7.4 L Ionized Calcium 0.9 L (Measured) Total Bilirubin 0.6 Direct Bilirubin 0.00 Indirect Bilirubin 0.6 Aspartate Amino 16 Transf (AST/SGOT) Alanine 26 Aminotransferase (AL T/SGPT) Alkaline Phosphatase 43 Total Protein 6.8 Albumin 3.8 Globulin 3.00 Albumin/Globulin 1.26 Ratio White Blood Count 11.9 H Red Blood Count 3.74 L Hemoglobin 12.4 Hematocrit 37.4 Mean Corpuscular 100.0 Volume Mean Corpuscular 33.2 H Hemoglobin Mean Corpuscular 33.2 Hemoglobin Concent Red Cell 12.8 Distribution Width Platelet Count 234 Mean Platelet Volume 11.5 H Immature 0.800 H Granulocytes % Neutrophils % 72.3 Lymphocytes % 21.5 Monocytes % 5.2 Eosinophils % 0.1 Basophils % 0.1 Nucleated Red Blood 0.0 Cells % Immature 0.090 H Granulocytes # Neutrophils # 8.6 H Lymphocytes # 2.6 Monocytes # 0.6 Eosinophils # 0.0 Basophils # 0.0 Nucleated Red Blood 0.0 Cells # Phosphorus Level 4.4 Magnesium Level 2.6 #H Troponin I < 0.012 < 0.012 Medications Medication Current Medications Zolpidem Tartrate (Ambien) 10 mg HS PRN PO INSOMNIA Last administered on 09/10/18 20:49; Admin Dose 10 MG; Start 09/08/18 at 04:00 Albuterol (Proventil 0.083% (Neb)) 1.25 mg Q6H RESP THERAPY PRN NEB WHEEZING AND SOB; Start 09/08/18 at 22:30 Amlodipine Besylate (Norvasc) 10 mg DAILY PO Last administered on 09/11/18 10:25; Admin Dose 10 MG; Start 09/09/18 at 09:00 Aspirin (Halfprin) 81 mg DAILY PO Last administered on 09/11/18 10:22; Admin Dose 81 MG; Start 09/09/18 at 09:00 Atorvastatin Calcium (Lipitor) 40 mg QHS PO Last administered on 09/10/18 20:41; Admin Dose 40 MG; Start 09/09/18 at 21:00 Gabapentin (Neurontin) 800 mg BID PO Last administered on 09/11/18 10:26; Admin Dose 800 MG; Start 09/08/18 at 22:30 Isosorbide Mononitrate (Imdur) 30 mg DAILY PO Last administered on 09/11/18 10:27; Admin Dose 30 MG; Start 09/09/18 at 09:00 Levothyroxine Sodium (Synthroid) 125 mcg BEFORE BREAKFAST PO Last administered on 09/11/18 06:47; Admin Dose 125 MCG; Start 09/09/18 at 07:00 Pantoprazole (Protonix Tab) 40 mg AC BREAKFAST PO Last administered on 09/11/18 06:47; Admin Dose 40 MG; Start 09/09/18 at 07:30 Solifenacin (Vesicare) 10 mg DAILY PO Last administered on 09/11/18 10:22; Admin Dose 10 MG; Start 09/09/18 at 09:00 Ibuprofen (Motrin) 600 mg Q6H PRN PO PAIN 1-3 Last administered on 09/09/18 17:15; Admin Dose 600 MG; Start 09/08/18 at 22:30 Levofloxacin/ Dextrose 100 ml @ 100 mls/hr Q24H IVPB Last administered on 09/10 22:46; Admin Dose 100 MLS/HR; Start 09/08/18 at 23:00 Albuterol/ Ipratropium (Duoneb) 3 ml Q8H RESP THERAPY HHN Last administered on 09/10/18 16:15; Admin Dose 3 ML; Start 09/08/18 at 22:45 Albuterol/ Ipratropium (Duoneb) 3 ml Q8H RESP THERAPY PRN HHN SHORTNESS OF BREATH; Start 09/08/18 at 23:00 Quetiapine Fumarate (Seroquel) 100 mg HS PO Last administered on 09/10/18 20:41; Admin Dose 100 MG; Start 09/08/18 at 22:00 Ergocalciferol (Drisdol) 50,000 unit Q7D PO Last administered on 09/10/18 09:03; Admin Dose 50,000 UNIT; Start 09/10/18 at 09:00 Rivaroxaban (Xarelto) 10 mg DAILY PO Last administered on 09/11/18 10:29; Admin Dose 10 MG; Start 09/09/18 at 09:00 Nitroglycerin (Nitroglycerin (Sl Tab) 0.4 Mg) 1 tab Q5M PRN SL ANGINA Last administered on 09/10/18 23:24; Admin Dose 1 TAB; Start 09/09/18 at 18:30 Morphine Sulfate (morphine) 1 mg Q2H PRN IV SEVERE PAIN LEVEL 7-10 Last administered on 09/11/18 10:29; Admin Dose 1 MG; Start 09/10/18 at 10:00 Fluticasone/ Vilanterol (Breo Ellipta 200-25 Mcg Inh) 1 inh DAILY INH Last administered on 09/11/18 10:28; Admin Dose 1 INH; Start 09/10/18 at 10:00 Tiotropium [place] (Spiriva) 1 inh DAILY INH Last administered on 09/11/18 10:28; Admin Dose 1 INH; Start 09/10/18 at 10:00 Montelukast Sodium (Singulair) 10 mg HS PO Last administered on 09/10/18 20:43; Admin Dose 10 MG; Start 09/10/18 at 21:00 Calcitriol (Rocaltrol) 0.25 mcg BID PO Last administered on 09/11/18 10:20; Admin Dose 0.25 MCG; Start 09/10/18 at 21:00 Calcium Carbonate (Oyster Shell Calcium) 1.25 gm BID GTB Last administered on 09/11/18 10:20; Admin Dose 1.25 GM; Start 09/10/18 at 10:00 Diagnostic Test (Pha) (Accu-Chek) 1 ea AC MEALS XX ; Start 09/10/18 at 11:30 Diagnostic Test (Pha) (Accu-Chek) 1 ea 2 HOURS AFTER MEALS XX Last administe red on 09/10/18 20:38; Admin Dose 1 EA; Start 09/10/18 at 10:00 Polyethylene Glycol (Miralax) 17 gm BID PO Last administered on 09/11/18 10:26; Admin Dose 17 GM; Start 09/10/18 at 21:00 Docusate Sodium (Colace) 250 mg BID PO Last administered on 09/11/18 10:25; Admin Dose 250 MG; Start 09/10/18 at 21:00 Metoprolol Tartrate (Lopressor) 25 mg BID PO Last administered on 09/11/18 10:26; Admin Dose 25 MG; Start 09/10/18 at 21:00 Acetaminophen (Tylenol Tab) 500 mg Q8 PRN PO MILD PAIN(1-3)OR ELEVATED TEMP; Start 09/11/18 at 00:30 Tramadol HCl (Ultram) 50 mg Q12 PRN PO PAIN; Start 09/11/18 at 00:30 Magnesium Sulfate 50 ml @ 25 mls/hr DAILY IVPB ; Start 09/12/18 at 09:00; Stop 09/13/18 at 10:59 ROBERT MACHUCA MD Sep 11, 2018 19:14
[2018-09-11] MEDS ORDERED: ERGOCALCIFEROL 50,000 UNIT CAP PO ONE (19:30)
[2018-09-11] MEDS ORDERED: CALCITRIOL 1 MCG INJ IV ONE (19:30)
[2018-09-11 20:12] VITALS: BP 138/93; PULSE 83; RESP 18
[2018-09-11] MEDS: ATORVASTATIN 40 MG TAB PO SCH (21:10)
[2018-09-11] MEDS: QUETIAPINE 100 MG TAB PO SCH (21:11)
[2018-09-11] MEDS: MONTELUKAST 10 MG TAB PO SCH (21:12)
[2018-09-11] MEDS: ZOLPIDEM 5 MG TAB PO PRN (21:17)
[2018-09-11] MEDS: LEVOFLOXACIN 500MG/D5W (PMX) 100 ML IVPB SCH (22:43)
[2018-09-12 02:22] VITALS: BP 106/56; PULSE 67; PULSE 76; RESP 20
[2018-09-12] MEDS: PANTOPRAZOLE (EC) 40 MG TAB PO SCH (06:39)
[2018-09-12] MEDS: LEVOTHYROXINE 125 MCG TAB PO SCH (06:39)
[2018-09-12] MEDS: ALBUTEROL/IPRATROPIUM (NEB) 3 ML AMP HHN SCH ×2 (07:19→16:42)
[2018-09-12 07:30] VITALS: BP 117/64; PULSE 52; RESP 20
[2018-09-12] MEDS: ACCU-CHEK XX SCH ×6 (07:30→20:05)
[2018-09-12] MEDS: METOPROLOL 25 MG TAB PO SCH ×2 (09:00→21:05)
[2018-09-12] MEDS: POLYETHYLENE GLYCOL 17 GM PACKET PO SCH ×2 (09:00→21:00)
[2018-09-12] MEDS: TIOTROPIUM 18 MCG CAPSULE INHA DEV INH SCH (10:38)
[2018-09-12] MEDS: FLUTICASONE/VILANTEROL 200-25 INH DEVICE INH SCH (10:38)
[2018-09-12] MEDS: CALCIUM CARBONATE 1.25 GM TAB GTB SCH ×2 (10:38→21:05)
[2018-09-12] MEDS: MAGNESIUM SULFATE 2 GM/50 ML 50 ML IVPB SCH (10:39)
[2018-09-12] MEDS: DOCUSATE SODIUM 250 MG CAP PO SCH ×2 (10:39→21:00)
[2018-09-12] MEDS: ASPIRIN (EC) 81 MG TAB PO SCH (10:39)
[2018-09-12] MEDS: ISOSORBIDE MONONITRATE(SR)30 MG TAB PO SCH (10:40)
[2018-09-12] MEDS: CALCITRIOL 0.25 MCG CAP PO SCH ×2 (10:41→21:05)
[2018-09-12] MEDS: SOLIFENACIN 5 MG TAB PO SCH (10:41)
[2018-09-12] MEDS: AMLODIPINE 10 MG TAB PO SCH (10:41)
[2018-09-12] MEDS: GABAPENTIN 400 MG CAP PO SCH ×2 (10:41→21:04)
[2018-09-12] MEDS: RIVAROXABAN 10 MG TABLET PO SCH (10:42)
[2018-09-12] MEDS ORDERED: ERGOCALCIFEROL 50,000 UNIT CAP PO ONE (13:30)
--- NOTE | 2018-09-12 13:33 | CONS ---
Assessment/Plan Assessment/Plan Problems: (1) COPD with acute exacerbation Status: Acute Comment: Markedly improved with standard treatment (2) Hypocalcemia Status: Chronic Comment: Correcting nicely using calcium and vitamin D specifically calcitriol Consultation Date/Type/Reason Admit Date/Time Sep 07, 2018 at 19:38 Initial Consult Date 09/11/18 Type of Consult Endocrine Reason for Consultation Hypocalcemia; COPD Requesting Provider: CARMEN COLBERT MD Date/Time of Note DATE: 09/12/18 TIME: 13:31 24 HR Interval Summary Free Text/Dictation Patient reports that she feels much better. Constitutional: no complaints Detailed Summary Respiratory: no complaints Cardiovascular: no complaints (No cough no shortness of breath) Gastrointestinal: no complaints Endocrine: no complaints Exam/Review of Systems Exam Vitals Vital Signs Date Temp Pulse Resp B/P (MAP) Pulse Ox O2 O2 Flow FiO2 Time Delivery Rate 09/12/18 97.6 52 20 117/64 96 Nasal 2.0 07:30 (81) Cannula Intake and Output 09/11/18 09/11/18 09/12/18 1414:59 22:59 06:59 IntakeIntake Total 250 ml 300 ml 1600 ml OutputOutput Total 200 ml 650 ml BalanceBalance 50 ml -350 ml 1600 ml Constitutional: alert, oriented Respiratory: clear to auscultation, diminished breath sounds Extremities: normal pulses Results Result Diagram: 09/11/18 0554 09/12/18 0558 Results 24hrs Laboratory Tests Test 09/11/18 14:08 09/11/18 21:21 09/12/18 05:58 09/12/18 08:27 Troponin I < 0.012 Bedside Glucose 93 99 Sodium Level 141 Potassium Level 3.9 Chloride Level 101 Carbon Dioxide Level 31 Anion Gap 9 # Blood Urea Nitrogen 23 H Creatinine 0.82 Est Glomerular Filtrat Rate mL/min Glucose Level 87 Calcium Level 8.0 L Ionized Calcium 1.0 L (Measured) Total Bilirubin 0.5 Direct Bilirubin 0.00 Indirect Bilirubin 0.5 Aspartate Amino 15 Transf (AST/SGOT) Alanine 21 Aminotransferase (AL T/SGPT) Alkaline Phosphatase 50 Total Protein 6.5 Albumin 3.5 Globulin 3.00 Albumin/Globulin 1.16 Ratio Test 09/12/18 10:49 09/12/18 12:17 Bedside Glucose 116 110 Medications Medication Current Medications Zolpidem Tartrate (Ambien) 10 mg HS PRN PO INSOMNIA Last administered on 09/11/18 21:17; Admin Dose 10 MG; Start 09/08/18 at 04:00 Albuterol (Proventil 0.083% (Neb)) 1.25 mg Q6H RESP THERAPY PRN NEB WHEEZING AND SOB; Start 09/08/18 at 22:30 Amlodipine Besylate (Norvasc) 10 mg DAILY PO Last administered on 09/12/18 10:41; Admin Dose 10 MG; Start 09/09/18 at 09:00 Aspirin (Halfprin) 81 mg DAILY PO Last administered on 09/12/18 10:39; Admin Dose 81 MG; Start 09/09/18 at 09:00 Atorvastatin Calcium (Lipitor) 40 mg QHS PO Last administered on 09/11/18 21:10; Admin Dose 40 MG; Start 09/09/18 at 21:00 Gabapentin (Neurontin) 800 mg BID PO Last administered on 09/12/18 10:41; Admin Dose 800 MG; Start 09/08/18 at 22:30 Isosorbide Mononitrate (Imdur) 30 mg DAILY PO Last administered on 09/12/18 10:40; Admin Dose 30 MG; Start 09/09/18 at 09:00 Levothyroxine Sodium (Synthroid) 125 mcg BEFORE BREAKFAST PO Last administered on 09/12/18 06:39; Admin Dose 125 MCG; Start 09/09/18 at 07:00 Pantoprazole (Protonix Tab) 40 mg AC BREAKFAST PO Last administered on 09/12/18 06:39; Admin Dose 40 MG; Start 09/09/18 at 07:30 Solifenacin (Vesicare) 10 mg DAILY PO Last administered on 09/12/18 10:41; Admin Dose 10 MG; Start 09/09/18 at 09:00 Ibuprofen (Motrin) 600 mg Q6H PRN PO PAIN 1-3 Last administered on 09/09/18 17:15; Admin Dose 600 MG; Start 09/08/18 at 22:30 Levofloxacin/ Dextrose 100 ml @ 100 mls/hr Q24H IVPB Last administered on 09/11/18 22:43; Admin Dose 100 MLS/HR; Start 09/08/18 at 23:00 Albuterol/ Ipratropium (Duoneb) 3 ml Q8H RESP THERAPY HHN Last administered on 09/12/18 07:19; Admin Dose 3 ML; Start 09/08/18 at 22:45 Albuterol/ Ipratropium (Duoneb) 3 ml Q8H RESP THERAPY PRN HHN SHORTNESS OF [place]EL[place] TH; Start 09/08/18 at 23:00 Quetiapine Fumarate (Seroquel) 100 mg HS PO Last administered on 09/11/18 21:11; Admin Dose 100 MG; Start 09/08/18 at 22:00 Ergocalciferol (Drisdol) 50,000 unit Q7D PO Last administered on 09/10/18 09:03; Admin Dose 50,000 UNIT; Start 09/10/18 at 09:00 Rivaroxaban (Xarelto) 10 mg DAILY PO Last administered on 09/12/18 10:42; Admin Dose 10 MG; Start 09/09/18 at 09:00 Nitroglycerin (Nitroglycerin (Sl Tab) 0.4 Mg) 1 tab Q5M PRN SL ANGINA Last administered on 09/10/18 23:24; Admin Dose 1 TAB; Start 09/09/18 at 18:30 Morphine Sulfate (morphine) 1 mg Q2H PRN IV SEVERE PAIN LEVEL 7-10 Last administered on 09/11/18 10:29; Admin Dose 1 MG; Start 09/10/18 at 10:00 Fluticasone/ Vilanterol (Breo Ellipta 200-25 Mcg Inh) 1 inh DAILY INH Last administered on 09/12/18 10:38; Admin Dose 1 INH; Start 09/10/18 at 10:00 Tiotropium [place] (Spiriva) 1 inh DAILY INH Last administered on 09/12/18 10:38; Admin Dose 1 INH; Start 09/10/18 at 10:00 Montelukast Sodium (Singulair) 10 mg HS PO Last administered on 09/11/18 21:12; Admin Dose 10 MG; Start 09/10/18 at 21:00 Calcitriol (Rocaltrol) 0.25 mcg BID PO Last administered on 09/12/18 10:41; Admin Dose 0.25 MCG; Start 09/10/18 at 21:00 Calcium Carbonate (Oyster Shell Calcium) 1.25 gm BID GTB Last administered on 09/12/18 10:38; Admin Dose 1.25 GM; Start 09/10/18 at 10:00 Diagnostic Test (Pha) (Accu-Chek) 1 ea AC MEALS XX ; Start 09/10/18 at 11:30 Diagnostic Test (Pha) (Accu-Chek) 1 ea 2 HOURS AFTER MEALS XX Last administered on 09/11/18 20:05; Admin Dose 1 EA; Start 09/10/18 at 10:00 Polyethylene Glycol (Miralax) 17 gm BID PO Last administered on 09/11/18 21:11; Admin Dose 17 GM; Start 09/10/18 at 21:00 Docusate Sodium (Colace) 250 mg BID PO Last administered on 09/12/18 10:39; Admin Dose 250 MG; Start 09/10/18 at 21:00 Metoprolol Tartrate (Lopressor) 25 mg BID PO Last administered on 09/11/18 21:11; Admin Dose 25 MG; Start 09/10/18 at 21:00 Acetaminophen (Tylenol Tab) 500 mg Q8 PRN PO MILD PAIN(1-3)OR ELEVATED TEMP; Start 09/11/18 at 00:30 Tramadol HCl (Ultram) 50 mg Q12 PRN PO PAIN; Start 09/11/18 at 00:30 Magnesium Sulfate 50 ml @ 25 mls/hr DAILY IVPB Last administered on 09/12/18at 10:39; Admin Dose 25 MLS/HR; Start 09/12/18 at 09:00; Stop 09/13/18 at 10:59 Ergocalciferol (Drisdol Liquid (Ped)) 50,000 units ONCE ONCE PO ; Start 09/12/18 at 13:30; Stop 09/12/18 at 13:31; Status ROBERT HI MD Sep 12, 2018 13:32
[2018-09-12 14:00] VITALS: BP 112/68; PULSE 63; RESP 20
--- NOTE | 2018-09-12 14:27 | PN ---
Date/Time of Note Date/Time of Note DATE: 09/12/18 TIME: 14:23 Assessment/Plan VTE Prophylaxis Risk score (from Ns)>0 risk: 5 SCD applied (from Ns): No SCD contraindicated: other (on.) Pharmacological prophylaxis: LMWH Lines/Catheters IV Catheter Type (from [facility]): Mid Line Central line still needed: No Urinary Cath still in place: Yes Reason Cath still needed: urinary retention Assessment/Plan Assessment/Plan 1. Urinary tract infection. Urinary incontinence-improving. 2, Chronic obstructive pulmonary disease exacerbation-worse comparing with yesterday. Very slow improvement. 3. Wheezing got worse 4. Anxiety depression 5. History of diabetes type 2, now better controlled. 6. Lactic acidosis- mild. 7. Hypothyroidism. Decrease the dose of levothyroxine. Previous dose was 200, came down to 150 mcg. 8. History of gastritis and gastroesophageal reflux disease. Continue Protonix. 9. Psoriasis. 10. Dyslipidemia. 11. Memory impairment. 12. Sleeplessness. 13. 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 14. Upon availability of more data, we will add to current report. 15. lbp 16.Very low mg and iron levels 17. Suspect multidrug abuse mainly sleeping pills and Tylenol 3. 18. On and off agitation dissatisfaction noncompliance to treatment. Result Diagram: 09/11/18 0554 09/12/18 0558 Results 24hrs Laboratory Tests Test 09/11/18 21:21 09/12/18 05:58 09/12/18 08:27 09/12/18 10:49 Bedside Glucose 93 99 116 Sodium Level 141 Potassium Level 3.9 Chloride Level 101 Carbon Dioxide Level 31 Anion Gap 9 # Blood Urea Nitrogen 23 H Creatinine 0.82 Est Glomerular Filtrat Rate mL/min Glucose Level 87 Calcium Level 8.0 L Ionized Calcium 1.0 L (Measured) Total Bilirubin 0.5 Direct Bilirubin 0.00 Indirect Bilirubin 0.5 Aspartate Amino 15 Transf (AST/SGOT) Alanine 21 Aminotransferase (AL T/SGPT) Alkaline Phosphatase 50 Total Protein 6.5 Albumin 3.5 Globulin 3.00 Albumin/Globulin 1.16 Ratio Test 09/12/18 12:17 Bedside Glucose 110 Subjective 24 Hr Interval Summary Free Text/Dictation Wheezing improved mildly. No fever and chills. Still having chest pain. Constitutional: No no complaints, No improved, No chills, No diaphoresis, No disoriented, No febrile, No poor po, No requiring IVF, No requiring O2, No other Eyes: No no complaints, No pain, No discharge, No redness, No visual change, No other ENT: No no complaints, No bleeding, No pain, No congestion, No discharge, No dysphagia, No sore throat, No other Respiratory: cough, pleuritic pain, shortness of breath, wheezing; No no complaints, No pain, No sputum, No other Cardiovascular: edema, orthopenea, palpitations; No no complaints, No chest pain, No lightheadedness, No paroxysmal nocturnal dyspnea, No other Gastrointestinal: constipation, decreased appetite; No no complaints, No pain, No blood, No diarrhea, No flatus, No nausea, No passing stool, No vomiting, No other Genitourinary: dysuria; No no complaints, No bleeding, No discharge, No flank pain, No hematuria, No other Musculoskeletal: back pain, bone/joint pain, neck pain; No no complaints, No restricted range of motion, No swelling, No other Skin: pruritis; No no complaints, No bruising, No erythema, No laceration, No rash, No skin lesions, No other Neurologic: confusion (On and off.), dizziness Psychological: anxiety, depression; No no complaints, No nl mood/affect, No confusion, No suicidal, No other Exam/Review of Systems Exam Vitals Vital Signs Date Temp Pulse Resp B/P (MAP) Pulse Ox O2 O2 Flow FiO2 Time Delivery Rate 09/12/18 Nasal 2.0 08:00 Cannula 09/12/18 97.6 52 20 117/64 96 07:30 (81) Intake and Output 09/11/18 09/11/18 09/12/18 1515:00 23:00 07:00 IntakeIntake Total 250 ml 300 ml 1600 ml OutputOutput Total 200 ml 650 ml BalanceBalance 50 ml -350 ml 1600 ml Constitutional: alert, oriented, well developed, distress, frail; No non-verbal, No obese, No other Psych: anxiety, depression; No no complaints, No nl mood/affect, No confusion, No suicidal, No other Head: normocephalic, atraumatic; No lacerations, No hematomas, No other Eyes: EOMI, nl lids; No nl conjunctiva, No nl sclera, No PERRL, No icteric, No fundi, disc, No other ENMT: No nl external ears & nose, No nl lips & teeth, No nl nasal mucosa & septum, No mucosa pink and moist, No intubated, No tympanic membranes, No other Neck: jvd, bruits, thyromegaly (Status post thyroidectomy.), nuchal rigidity; No supple, No non-tender, No masses, No other Respiratory: congested cough, crackles/rales, diminished breath sounds, wheezing; No clear to auscultation, No normal air movement, No intercostal retraction, No labored breathing, No respirations, No tactile fremitus, No other Cardiovascular: regular rate and rhythm, bruits; No nl pulses, No diastolic murmur, No edema, No gallop, No irregular rhythm, No jugular venous distention (JVD), No murmurs/extra sounds, No rub, No systolic murmur, No S3, No S4, No other Gastrointestinal: soft, nl liver, spleen, bowel sounds; No non-tender, No ascites, No distended, No firm, No hepatomegaly, No mass, No rebound or guarding, No splenomegaly, No surgical scars, No tender, No other Genitourinary - Female: nl adnexae, nl external genitalia; No CMT, No CVA tenderness, No uterus, No other Musculoskeletal: joint tenderness, muscle weakness; No nl extremities to inspection, No nl gait and stance, No muscle tone, No range of motion, No spine non-tender, No swelling, No other Extremities: No normal pulses, No calf tenderness, No cyanosis, No clubbing, No edema, No pitting pedal edema, No palpable cord, No tenderness, No other Neurological: [employer] II-XII intact, confused, lethargic; No nl mental status, No nl speech, No nl strength, No DTR's symmetric, No focal weakness, No numbness, No reflexes, No unresponsive, No other Skin: nl turgor (Decreased.), rash or lesions (Dry.); No diaphoresis, No ecchymosis, No laceration, No puncture, No other Lymph: nl lymph nodes; No enlarged, No nontender, No other Results Results 24hrs Laboratory Tests Test 09/11/18 21:21 09/12/18 05:58 09/12/18 08:27 09/12/18 10:49 Bedside Glucose 93 99 116 Sodium Level 141 Potassium Level 3.9 Chloride Level 101 Carbon Dioxide Level 31 Anion Gap 9 # Blood Urea Nitrogen 23 H Creatinine 0.82 Est Glomerular Filtrat Rate mL/min Glucose Level 87 Calcium Level 8.0 L Ionized Calcium 1.0 L (Measured) Total Bilirubin 0.5 Direct Bilirubin 0.00 Indirect Bilirubin 0.5 Aspartate Amino 15 Transf (AST/SGOT) Alanine 21 Aminotransferase (AL T/SGPT) Alkaline Phosphatase 50 Total Protein 6.5 Albumin 3.5 Globulin 3.00 Albumin/Globulin 1.16 Ratio Test 09/12/18 12:17 Bedside Glucose 110 Medications Medication Current Medications Zolpidem Tartrate (Ambien) 10 mg HS PRN PO INSOMNIA Last administered on 09/11/18 21:17; Admin Dose 10 MG; Start 09/08/18 at 04:00 Albuterol (Proventil 0.083% (Neb)) 1.25 mg Q6H RESP THERAPY PRN NEB WHEEZING AND SOB; Start 09/08/18 at 22:30 Amlodipine Besylate (Norvasc) 10 mg DAILY PO Last administered on 09/12/18 10:41; Admin Dose 10 MG; Start 09/09/18 at 09:00 Aspirin (Halfprin) 81 mg DAILY PO Last administered on 09/12/18 10:39; Admin Dose 81 MG; Start 09/09/18 at 09:00 Atorvastatin Calcium (Lipitor) 40 mg QHS PO Last administered on 09/11/18 21:10; Admin Dose 40 MG; Start 09/09/18 at 21:00 Gabapentin (Neurontin) 800 mg BID PO Last administered on 09/12/18 10:41; Admin Dose 800 MG; Start 09/08/18 at 22:30 Isosorbide Mononitrate (Imdur) 30 mg DAILY PO Last administered on 09/12/18 10:40; Admin Dose 30 MG; Start 09/09/18 at 09:00 Levothyroxine Sodium (Synthroid) 125 mcg BEFORE BREAKFAST PO Last administered on 09/12/18 06:39; Admin Dose 125 MCG; Start 09/09/18 at 07:00 Pantoprazole (Protonix Tab) 40 mg AC BREAKFAST PO Last administered on 09/12/18 06:39; Admin Dose 40 MG; Start 09/09/18 at 07:30 Solifenacin (Vesicare) 10 mg DAILY PO Last administered on 09/12/18 10:41; Admin Dose 10 MG; Start 09/09/18 at 09:00 Ibuprofen (Motrin) 600 mg Q6H PRN PO PAIN 1-3 Last administered on 09/09/18 17:15; Admin Dose 600 MG; Start 09/08/18 at 22:30 Levofloxacin/ Dextrose 100 ml @ 100 mls/hr Q24H IVPB Last administered on 09/11/18 22:43; Admin Dose 100 MLS/HR; Start 09/08/18 at 23:00 Albuterol/ Ipratropium (Duoneb) 3 ml Q8H RESP THERAPY HHN Last administered on 09/12/18 07:19; Admin Dose 3 ML; Start 09/08/18 at 22:45 Albuterol/ Ipratropium (Duoneb) 3 ml Q8H RESP THERAPY PRN HHN SHORTNESS OF BREATH; Start 09/08/18 at 23:00 Quetiapine Fumarate (Seroquel) 100 mg HS PO Last administered on 09/11/18 21:11; Admin Dose 100 MG; Start 09/08/18 at 22:00 Ergocalciferol (Drisdol) 50,000 unit Q7D PO Last administered on 09/10/18 09:0 3; Admin Dose 50,000 UNIT; Start 09/10/18 at 09:00 Rivaroxaban (Xarelto) 10 mg DAILY PO Last administered on 09/12/18 10:42; Admin Dose 10 MG; Start 09/09/18 at 09:00 Nitroglycerin (Nitroglycerin (Sl Tab) 0.4 Mg) 1 tab Q5M PRN SL ANGINA Last administered on 09/10/18 23:24; Admin Dose 1 TAB; Start 09/09/18 at 18:30 Morphine Sulfate (morphine) 1 mg Q2H PRN IV SEVERE PAIN LEVEL 7-10 Last adminis tered on 09/11/18 10:29; Admin Dose 1 MG; Start 09/10/18 at 10:00 Fluticasone/ Vilanterol (Breo Ellipta 200-25 Mcg Inh) 1 inh DAILY INH Last administered on 09/12/18 10:38; Admin Dose 1 INH; Start 09/10/18 at 10:00 Tiotropium [place] (Spiriva) 1 inh DAILY INH Last administered on 09/12/18 10:38; Admin Dose 1 INH; Start 09/10/18 at 10:00 Montelukast Sodium (Singulair) 10 mg HS PO Last administered on 09/11/18 21:12; Admin Dose 10 MG; Start 09/10/18 at 21:00 Calcitriol (Rocaltrol) 0.25 mcg BID PO Last administered on 09/12/18 10:41; Admin Dose 0.25 MCG; Start 09/10/18 at 21:00 Calcium Carbonate (Oyster Shell Calcium) 1.25 gm BID GTB Last administered on 09/12/18 10:38; Admin Dose 1.25 GM; Start 09/10/18 at 10:00 Diagnostic Test (Pha) (Accu-Chek) 1 ea AC MEALS XX ; Start 09/10/18 at 11:30 Diagnostic Test (Pha) (Accu-Chek) 1 ea 2 HOURS AFTER MEALS XX Last administered on 09/11/18 20:05; Admin Dose 1 EA; Start 09/10/18 at 10:00 Polyethylene Glycol (Miralax) 17 gm BID PO Last administered on 09/11/18 21:11; Admin Dose 17 GM; Start 09/10/18 at 21:00 Docusate Sodium (Colace) 250 mg BID PO Last administered on 09/12/18 10:39; Admin Dose 250 MG; Start 09/10/18 at 21:00 Metoprolol Tartrate (Lopressor) 25 mg BID PO Last administered on 09/11/18 21:11; Admin Dose 25 MG; Start 09/10/18 at 21:00 Acetaminophen (Tylenol Tab) 500 mg Q8 PRN PO MILD PAIN(1-3)OR ELEVATED TEMP; Start 09/11/18 at 00:30 Tramadol HCl (Ultram) 50 mg Q12 PRN PO PAIN; Start 09/11/18 at 00:30 Magnesium Sulfate 50 ml @ 25 mls/hr DAILY IVPB Last administered on 09/12/18 10:39; Admin Dose 25 MLS/HR; Start 09/12/18 at 09:00; Stop 09/13/18 at 10:59 CARMEN COLBERT MD Sep 12, 2018 14:27
[2018-09-12] MEDS ORDERED: REGADENOSON 0.4 MG/5 ML SYG ONE (14:53)
--- NOTE | 2018-09-12 16:15 | CONS ---
Assessment/Plan Assessment/Plan Hospital Course (Demo Recall) Chest pain: Multiple troponins this admission have been negative and EKG on admission was nonischemic. She had a normal Lexiscan 2014 but these symptoms are new onset and she certainly has CAD risk factors. Other possibilities include GERD as she has been laying down throughout the admission and it is more of a burning sensation. She is already on a PPI. Echo is normal and Lexiscan is pending. Symptoms resolved UTI Chronic respiratory failure COPD DM HTN HL -f/u Lexiscan -continue ASA and lipitor -metoprolol 25mg BID -imdur -amlodipine Consultation Date/Type/Reason Admit Date/Time Sep 07, 2018 at 19:38 Initial Consult Date 09/11/18 Type of Consult Cardiology Requesting Provider: CARMEN COLBERT MD Date/Time of Note DATE: 09/12/18 TIME: 16:13 24 HR Interval Summary Free Text/Dictation Lexiscan this afternoon. Awaiting results. No chest pain overnight Exam/Review of Systems Vital Signs Vitals Vital Signs Date Temp Pulse Resp B/P (MAP) Pulse Ox O2 O2 Flow FiO2 Time Delivery Rate 09/12/18 97.8 63 20 112/68 92 Nasal 2.0 14:00 (83) Cannula Intake and Output 09/11/18 09/11/18 09/12/18 1515:00 23:00 07:00 IntakeIntake Total 250 ml 300 ml 1600 ml OutputOutput Total 200 ml 650 ml BalanceBalance 50 ml -350 ml 1600 ml Exam Constitutional: alert, oriented Psych: no complaints, nl mood/affect Head: normocephalic, atraumatic Neck: supple; No jvd Respiratory: diminished breath sounds; No clear to auscultation, No crackles/rales Cardiovascular: regular rate and rhythm; No edema Gastrointestinal: soft, non-tender Neurological: nl mental status Labs Result Diagram: 09/11/18 0554 09/12/18 0558 Results 24hrs Laboratory Tests Test 09/11/18 21:21 09/12/18 05:58 09/12/18 08:27 09/12/18 10:49 Bedside Glucose 93 99 116 Sodium Level 141 Potassium Level 3.9 Chloride Level 101 Carbon Dioxide Level 31 Anion Gap 9 # Blood Urea Nitrogen 23 H Creatinine 0.82 Est Glomerular Filtrat Rate mL/min Glucose Level 87 Calcium Level 8.0 L Ionized Calcium 1.0 L (Measured) Total Bilirubin 0.5 Direct Bilirubin 0.00 Indirect Bilirubin 0.5 Aspartate Amino 15 Transf (AST/SGOT) Alanine 21 Aminotransferase (AL T/SGPT) Alkaline Phosphatase 50 Total Protein 6.5 Albumin 3.5 Globulin 3.00 Albumin/Globulin 1.16 Ratio Test 09/12/18 12:17 Bedside Glucose 110 Medications Medications Current Medications Zolpidem Tartrate (Ambien) 10 mg HS PRN PO INSOMNIA Last administered on 09/11/18 21:17; Admin Dose 10 MG; Start 09/08/18 at 04:00 Albuterol (Proventil 0.083% (Neb)) 1.25 mg Q6H RESP THERAPY PRN NEB WHEEZING AND SOB; Start 09/08/18 at 22:30 Amlodipine Besylate (Norvasc) 10 mg DAILY PO Last administered on 09/12/18 10:41; Admin Dose 10 MG; Start 09/09/18 at 09:00 Aspirin (Halfprin) 81 mg DAILY PO Last administered on 09/12/18 10:39; Admin Dose 81 MG; Start 09/09/18 at 09:00 Atorvastatin Calcium (Lipitor) 40 mg QHS PO Last administered on 09/11/18 21:10; Admin Dose 40 MG; Start 09/09/18 at 21:00 Gabapentin (Neurontin) 800 mg BID PO Last administered on 09/12/18 10:41; Admin Dose 800 MG; Start 09/08/18 at 22:30 Isosorbide Mononitrate (Imdur) 30 mg DAILY PO Last administered on 09/12/18 10:40; Admin Dose 30 MG; Start 09/09/18 at 09:00 Levothyroxine Sodium (Synthroid) 125 mcg BEFORE BREAKFAST PO Last administered on 09/12/18 06:39; Admin Dose 125 MCG; Start 09/09/18 at 07:00 Pantoprazole (Protonix Tab) 40 mg AC BREAKFAST PO Last administered on 09/12/18 06:39; Admin Dose 40 MG; Start 09/09/18 at 07:30 Solifenacin (Vesicare) 10 mg DAILY PO Last administered on 09/12/18 10:41; Admin Dose 10 MG; Start 09/09/18 at 09:00 Ibuprofen (Motrin) 600 mg Q6H PRN PO PAIN 1-3 Last administered on 09/09/18 17:15; Admin Dose 600 MG; Start 09/08/18 at 22:30 Levofloxacin/ Dextrose 100 ml @ 100 mls/hr Q24H IVPB Last administered on 09/11/18 22:43; Admin Dose 100 MLS/HR; Start 09/08/18 at 23:00 Albuterol/ Ipratropium (Duoneb) 3 ml Q8H RESP THERAPY HHN Last administered on 09/12/18 07:19; Admin Dose 3 ML; Start 09/08/18 at 22:45 Albuterol/ Ipratropium (Duoneb) 3 ml Q8H RESP THERAPY PRN HHN SHORTNESS OF BREATH; Start 09/08/18 at 23:00 Quetiapine Fumarate (Seroquel) 100 mg HS PO Last administered on 09/11/18 21:11; Admin Dose 100 MG; Start 09/08/18 at 22:00 Ergocalciferol (Drisdol) 50,000 unit Q7D PO Last administered on 09/10/18 09:03; Admin Dose 50,000 UNIT; Start 09/10/18 at 09:00 Rivaroxaban (Xarelto) 10 mg DAILY PO Last administered on 09/12/18 10:42; Admin Dose 10 MG; Start 09/09/18 at 09:00 Nitroglycerin (Nitroglycerin (Sl Tab) 0.4 Mg) 1 tab Q5M PRN SL ANGINA Last administered on 09/10/18 23:24; Admin Dose 1 TAB; Start 09/09/18 at 18:30 Morphine Sulfate (morphine) 1 mg Q2H PRN IV SEVERE PAIN LEVEL 7-10 Last administered on 09/11/18 10:29; Admin Dose 1 MG; Start 09/10/18 at 10:00 Fluticasone/ Vilanterol (Breo Ellipta 200-25 Mcg Inh) 1 inh DAILY INH Last administered on 09/12/18 10:38; Admin Dose 1 INH; Start 09/10/18 at 10:00 Tiotropium [place] (Spiriva) 1 inh DAILY INH Last administered on 09/12/18 10:38; Admin Dose 1 INH; Start 09/10/18 at 10:00 Montelukast Sodium (Singulair) 10 mg HS PO Last administered on 09/11/18 21:12; Admin Dose 10 MG; Start 09/10/18 at 21:00 Calcitriol (Rocaltrol) 0.25 mcg BID PO Last administered on 09/12/18 10:41; Admin Dose 0.25 MCG; Start 09/10/18 at 21:00 Calcium Carbonate (Oyster Shell Calcium) 1.25 gm BID GTB Last administered on 09/12/18 10:38; Admin Dose 1.25 GM; Start 09/10/18 at 10:00 Diagnostic Test (Pha) (Accu-Chek) 1 ea AC MEALS XX ; Start 09/10/18 at 11:30 Diagnostic Test (Pha) (Accu-Chek) 1 ea 2 HOURS AFTER MEALS XX Last administered on 09/11/18 20:05; Admin Dose 1 EA; Start 09/10/18 at 10:00 Polyethylene Glycol (Miralax) 17 gm BID PO Last administered on 09/11/18 21:11; Admin Dose 17 GM; Start 09/10/18 at 21:00 Docusate Sodium (Colace) 250 mg BID PO Last administered on 09/12/18 10:39; Admin Dose 250 MG; Start 09/10/18 at 21:00 Metoprolol Tartrate (Lopressor) 25 mg BID PO Last administered on 09/11/18 21:11; Admin Dose 25 MG; Start 09/10/18 at 21:00 Acetaminophen (Tylenol Tab) 500 mg Q8 PRN PO MILD PAIN(1-3)OR ELEVATED TEMP; Start 09/11/18 at 00:30 Tramadol HCl (Ultram) 50 mg Q12 PRN PO PAIN; Start 09/11/18 at 00:30 Magnesium Sulfate 50 ml @ 25 mls/hr DAILY IVPB Last administered on 09/12/18 10:39; Admin Dose 25 MLS/HR; Start 09/12/18 at 09:00; Stop 09/13/18 at 10:59 JULIUS CARREON Sep 12, 2018 16:15
[2018-09-12 20:00] VITALS: BP 118/76; PULSE 68; RESP 18
[2018-09-12] MEDS: QUETIAPINE 100 MG TAB PO SCH (21:04)
[2018-09-12] MEDS: ATORVASTATIN 40 MG TAB PO SCH (21:04)
[2018-09-12] MEDS: ZOLPIDEM 5 MG TAB PO PRN (21:04)
[2018-09-12] MEDS: MONTELUKAST 10 MG TAB PO SCH (21:05)
[2018-09-12] MEDS: LEVOFLOXACIN 500MG/D5W (PMX) 100 ML IVPB SCH (23:35)
[2018-09-13 02:37] VITALS: BP 110/58; PULSE 63; RESP 18
--- NOTE | 2018-09-13 07:21 | CONS ---
Assessment/Plan Assessment/Plan Hospital Course (Demo Recall) Chest pain: Multiple troponins this admission have been negative and EKG on admission was nonischemic. Echo is normal and Lexiscan shows no ischemia. Possibly chest wall spasm from hypocalcemia as noted by Dr. Izquierdo.Now resolved with improvement i hypocalcemia UTI Chronic respiratory failure COPD DM HTN HL -ok for d/c from cardiac perspective -continue ASA and lipitor -metoprolol 25mg BID (could consider changing to CCB or d/c with her COPD) -d/c imdur -amlodipine Consultation Date/Type/Reason Admit Date/Time Sep 07, 2018 at 19:38 Initial Consult Date 09/11/18 Type of Consult Cardiology Requesting Provider: CARMEN COLBERT MD Date/Time of Note DATE: 09/13/18 TIME: 07:14 24 HR Interval Summary Free Text/Dictation No further chest pain. No complaints. Exam/Review of Systems Vital Signs Vitals Vital Signs Date Temp Pulse Resp B/P (MAP) Pulse Ox O2 O2 Flow FiO2 Time Delivery Rate 09/13/18 97.7 63 18 110/58 92 Nasal 2.0 02:37 (75) Cannula Intake and Output 09/12/18 09/12/18 09/13/18 1515:00 23:00 07:00 IntakeIntake Total 50 ml 700 ml 2100 ml BalanceBalance 50 ml 700 ml 2100 ml Exam Constitutional: alert, oriented Psych: no complaints, nl mood/affect Head: normocephalic, atraumatic Neck: No jvd Respiratory: diminished breath sounds; No clear to auscultation, No crackles/rales Cardiovascular: regular rate and rhythm; No edema Gastrointestinal: soft, non-tender; No distended Neurological: nl mental status, nl speech Labs Result Diagram: 09/11/18 0554 09/13/18 0525 Results 24hrs Laboratory Tests Test 09/12/18 08:27 09/12/18 10:49 09/12/18 12:17 09/12/18 17:45 Bedside Glucose 99 116 110 129 Test 09/12/18 20:04 09/13/18 05:25 Bedside Glucose 99 Sodium Level 140 Potassium Level 3.8 Chloride Level 100 Carbon Dioxide Level 32 H Anion Gap 8 Blood Urea Nitrogen 25 H Creatinine 1.02 H Est Glomerular Filtrat Rate mL/min Glucose Level 100 Calcium Level 8.0 L Phosphorus Level 4.9 Magnesium Level 2.0 Total Bilirubin 0.3 Direct Bilirubin 0.00 Indirect Bilirubin 0.3 Aspartate Amino 15 Transf (AST/SGOT) Alanine 22 Aminotransferase (AL T/SGPT) Alkaline Phosphatase 52 Total Protein 6.0 L Albumin 3.4 Globulin 2.60 Albumin/Globulin 1.30 Ratio Medications Medications Current Medications Zolpidem Tartrate (Ambien) 10 mg HS PRN PO INSOMNIA Last administered on 09/12/18 21:04; Admin Dose 10 MG; Start 09/08/18 at 04:00 Albuterol (Proventil 0.083% (Neb)) 1.25 mg Q6H RESP THERAPY PRN NEB WHEEZING AND SOB Last administered on 09/12/18 21:24; Admin Dose 1.25 MG; Start 09/08/18 at 22:30 Amlodipine Besylate (Norvasc) 10 mg DAILY PO Last administered on 09/12/18 10:41; Admin Dose 10 MG; Start 09/09/18 at 09:00 Aspirin (Halfprin) 81 mg DAILY PO Last administered on 09/12/18 10:39; Admin Dose 81 MG; Start 09/09/18 at 09:00 Atorvastatin Calcium (Lipitor) 40 mg QHS PO Last administered on 09/12/18 21:04; Admin Dose 40 MG; Start 09/09/18 at 21:00 Gabapentin (Neurontin) 800 mg BID PO Last administered on 09/12/18 21:04; Admin Dose 800 MG; Start 09/08/18 at 22:30 Isosorbide Mononitrate (Imdur) 30 mg DAILY PO Last administered on 09/12/18 10:40; Admin Dose 30 MG; Start 09/09/18 at 09:00 Levothyroxine Sodium (Synthroid) 125 mcg BEFORE BREAKFAST PO Last administered on 09/12/18 06:39; Admin Dose 125 MCG; Start 09/09/18 at 07:00 Pantoprazole (Protonix Tab) 40 mg AC BREAKFAST PO Last administered on 09/12/18 06:39; Admin Dose 40 MG; Start 09/09/18 at 07:30 Solifenacin (Vesicare) 10 mg DAILY PO Last administered on 09/12/18 10:41; Admin Dose 10 MG; Start 09/09/18 at 09:00 Ibuprofen (Motrin) 600 mg Q6H PRN PO PAIN 1-3 Last administered on 09/09/18 17:15; Admin Dose 600 MG; Start 09/08/18 at 22:30 Levofloxacin/ Dextrose 100 ml @ 100 mls/hr Q24H IVPB Last administered on 09/12/18 23:35; Admin Dose 100 MLS/HR; Start 09/08/18 at 23:00 Albuterol/ Ipratropium (Duoneb) 3 ml Q8H RESP THERAPY HHN Last administered on 09/12/18 16:42; Admin Dose 3 ML; Start 09/08/18 at 22:45 Albuterol/ Ipratropium (Duoneb) 3 ml Q8H RESP THERAPY PRN HHN SHORTNESS OF BREATH; Start 09/08/18 at 23:00 Quetiapine Fumarate (Seroquel) 100 mg HS PO Last administered on 09/12/18 21:04; Admin Dose 100 MG; Start 09/08/18 at 22:00 Ergocalciferol (Drisdol) 50,000 unit Q7D PO Last administered on 09/10/18 09 :03; Admin Dose 50,000 UNIT; Start 09/10/18 at 09:00 Rivaroxaban (Xarelto) 10 mg DAILY PO Last administered on 09/12/18 10:42; Admin Dose 10 MG; Start 09/09/18 at 09:00 Nitroglycerin (Nitroglycerin (Sl Tab) 0.4 Mg) 1 tab Q5M PRN SL ANGINA Last administered on 09/10/18 23:24; Admin Dose 1 TAB; Start 09/09/18 at 18:30 Morphine Sulfate (morphine) 1 mg Q2H PRN IV SEVERE PAIN LEVEL 7-10 Last admin istered on 09/11/18 10:29; Admin Dose 1 MG; Start 09/10/18 at 10:00 Fluticasone/ Vilanterol (Breo Ellipta 200-25 Mcg Inh) 1 inh DAILY INH Last administered on 09/12/18 10:38; Admin Dose 1 INH; Start 09/10/18 at 10:00 Tiotropium [place] (Spiriva) 1 inh DAILY INH Last administered on 09/12/18 10: 38; Admin Dose 1 INH; Start 09/10/18 at 10:00 Montelukast Sodium (Singulair) 10 mg HS PO Last administered on 09/12/18 21:05; Admin Dose 10 MG; Start 09/10/18 at 21:00 Calcitriol (Rocaltrol) 0.25 mcg BID PO Last administered on 09/12/18 21:05; Admin Dose 0.25 MCG; Start 09/10/18 at 21:00 Calcium Carbonate (Oyster Shell Calcium) 1.25 gm BID GTB Last administered on 09/12/18 21:05; Admin Dose 1.25 GM; Start 09/10/18 at 10:00 Diagnostic Test (Pha) (Accu-Chek) 1 ea AC MEALS XX ; Start 09/10/18 at 11:30 Diagnostic Test (Pha) (Accu-Chek) 1 ea 2 HOURS AFTER MEALS XX Last administered on 09/11/18 20:05; Admin Dose 1 EA; Start 09/10/18 at 10:00 Polyethylene Glycol (Miralax) 17 gm BID PO Last administered on 09/11/18 21:11; Admin Dose 17 GM; Start 09/10/18 at 21:00 Docusate Sodium (Colace) 250 mg BID PO Last administered on 09/12/18 10:39; Admin Dose 250 MG; Start 09/10/18 at 21:00 Metoprolol Tartrate (Lopressor) 25 mg BID PO Last administered on 09/12/18 21:05; Admin Dose 25 MG; Start 09/10/18 at 21:00 Acetaminophen (Tylenol Tab) 500 mg Q8 PRN PO MILD PAIN(1-3)OR ELEVATED TEMP; Start 09/11/18 at 00:30 Tramadol HCl (Ultram) 50 mg Q12 PRN PO PAIN; Start 09/11/18 at 00:30 Magnesium Sulfate 50 ml @ 25 mls/hr DAILY IVPB Last administered on 09/12/18 10:39; Admin Dose 25 MLS/HR; Start 09/12/18 at 09:00; Stop 09/13/18 at 10:59 JULIUS CARREON September 13, 2018 07:21
[2018-09-13] MEDS: ACCU-CHEK XX SCH ×6 (07:30→20:05)
[2018-09-13 07:40] VITALS: BP 106/60; PULSE 58; RESP 18
[2018-09-13] MEDS: ALBUTEROL/IPRATROPIUM (NEB) 3 ML AMP HHN SCH ×3 (07:43→17:13)
[2018-09-13] MEDS: METOPROLOL 25 MG TAB PO SCH ×2 (09:00→20:40)
[2018-09-13] MEDS: PANTOPRAZOLE (EC) 40 MG TAB PO SCH (09:11)
[2018-09-13] MEDS: TIOTROPIUM 18 MCG CAPSULE INHA DEV INH SCH (09:11)
[2018-09-13] MEDS: LEVOTHYROXINE 125 MCG TAB PO SCH (09:11)
[2018-09-13] MEDS: FLUTICASONE/VILANTEROL 200-25 INH DEVICE INH SCH (09:11)
[2018-09-13] MEDS: POLYETHYLENE GLYCOL 17 GM PACKET PO SCH ×2 (09:12→20:37)
[2018-09-13] MEDS: SOLIFENACIN 5 MG TAB PO SCH (09:12)
[2018-09-13] MEDS: GABAPENTIN 400 MG CAP PO SCH ×2 (09:12→20:37)
[2018-09-13] MEDS: ASPIRIN (EC) 81 MG TAB PO SCH (09:12)
[2018-09-13] MEDS: CALCITRIOL 0.25 MCG CAP PO SCH ×2 (09:12→20:37)
[2018-09-13] MEDS: DOCUSATE SODIUM 250 MG CAP PO SCH ×2 (09:13→20:36)
[2018-09-13] MEDS: CALCIUM CARBONATE 1.25 GM TAB GTB SCH (09:13)
[2018-09-13] MEDS: RIVAROXABAN 10 MG TABLET PO SCH (09:13)
[2018-09-13] MEDS: AMLODIPINE 10 MG TAB PO SCH (09:14)
[2018-09-13] MEDS: MAGNESIUM SULFATE 2 GM/50 ML 50 ML IVPB SCH (09:16)
[2018-09-13 14:38] VITALS: BP 134/69; PULSE 71; RESP 16
--- NOTE | 2018-09-13 14:56 | CONS ---
Assessment/Plan Assessment/Plan Problems: (1) COPD with acute exacerbation Status: Acute Comment: Improved with standard treatment (2) Hypocalcemia Status: Chronic Comment: Coming under control nicely Consultation Date/Type/Reason Admit Date/Time Sep 07, 2018 at 19:38 Initial Consult Date 09/11/18 Type of Consult Endocrine Reason for Consultation Hypocalcemia; COPD Requesting Provider: CARMEN COLBERT MD Date/Time of Note DATE: 09/13/18 TIME: 14:54 24 HR Interval Summary Free Text/Dictation Patient reports feeling much better. Detailed Summary Endocrine: no complaints Exam/Review of Systems Exam Vitals Vital Signs Date Temp Pulse Resp B/P (MAP) Pulse Ox O2 O2 Flow FiO2 Time Delivery Rate 09/13/18 98.6 71 16 134/69 92 Nasal 14:38 (90) Cannula 09/13/18 2.0 08:00 Intake and Output 09/12/18 09/12/18 09/13/18 1515:00 23:00 07:00 IntakeIntake Total 50 ml 700 ml 2200 ml BalanceBalance 50 ml 700 ml 2200 ml Constitutional: alert, oriented Gastrointestinal: soft, nl liver, spleen, non-tender Results Result Diagram: 09/11/18 0554 09/13/18 0525 Results 24hrs Laboratory Tests Test 09/12/18 17:45 09/12/18 20:04 09/13/18 05:24 09/13/18 05:25 Bedside Glucose 129 99 Ionized Calcium 1.0 L (Measured) Sodium Level 140 Potassium Level 3.8 Chloride Level 100 Carbon Dioxide Level 32 H Anion Gap 8 Blood Urea Nitrogen 25 H Creatinine 1.02 H Est Glomerular Filtrat Rate mL/min Glucose Level 100 Calcium Level 8.0 L Phosphorus Level 4.9 Magnesium Level 2.0 Total Bilirubin 0.3 Direct Bilirubin 0.00 Indirect Bilirubin 0.3 Aspartate Amino 15 Transf (AST/SGOT) Alanine 22 Aminotransferase (ALT/ SGPT) Alkaline Phosphatase 52 Total Protein 6.0 L Albumin 3.4 Globulin 2.60 Albumin/Globulin Ratio 1.30 Test 09/13/18 09:24 09/13/18 12:47 Bedside Glucose 143 92 Medications Medication Current Medications Zolpidem Tartrate (Ambien) 10 mg HS PRN PO INSOMNIA Last administered on 9at 21:04; Admin Dose 10 MG; Start 09/08/18 at 04:00 Albuterol (Proventil 0.083% (Neb)) 1.25 mg Q6H RESP THERAPY PRN NEB WHEEZING AND SOB Last administered on 09/12/18 21:24; Admin Dose 1.25 MG; Start 09/08/18 at 22:30 Amlodipine Besylate (Norvasc) 10 mg DAILY PO Last administered on 09/13/18 09: 14; Admin Dose 10 MG; Start 09/09/18 at 09:00 Aspirin (Halfprin) 81 mg DAILY PO Last administered on 09/13/18 09:12; Admin Dose 81 MG; Start 09/09/18 at 09:00 Atorvastatin Calcium (Lipitor) 40 mg QHS PO Last administered on 09/12/18 21:04; Admin Dose 40 MG; Start 09/09/18 at 21:00 Gabapentin (Neurontin) 800 mg BID PO Last administered on 09/13/18 09:12; Admin Dose 800 MG; Start 09/08/18 at 22:30 Levothyroxine Sodium (Synthroid) 125 mcg BEFORE BREAKFAST PO Last administered on 09/13/18 09:11; Admin Dose 125 MCG; Start 09/09/18 at 07:00 Pantoprazole (Protonix Tab) 40 mg AC BREAKFAST PO Last administered on 09/13/18 09:11; Admin Dose 40 MG; Start 09/09/18 at 07:30 Solifenacin (Vesicare) 10 mg DAILY PO Last administered on 09/13/18 09:12; Admin Dose 10 MG; Start 09/09/18 at 09:00 Ibuprofen (Motrin) 600 mg Q6H PRN PO PAIN 1-3 Last administered on 09/09/18 17:15; Admin Dose 600 MG; Start 09/08/18 at 22:30 Levofloxacin/ Dextrose 100 ml @ 100 mls/hr Q24H IVPB Last administered on 09/12/18 23:35; Admin Dose 100 MLS/HR; Start 09/08/18 at 23:00 Albuterol/ Ipratropium (Duoneb) 3 ml Q8H RESP THERAPY HHN Last administered on 09/13/18 07:43; Admin Dose 3 ML; Start 09/08/18 at 22:45 Albuterol/ Ipratropium (Duoneb) 3 ml Q8H RESP THERAPY PRN HHN SHORTNESS OF BREATH; Start 09/08/18 at 23:00 Quetiapine Fumarate (Seroquel) 100 mg HS PO Last administered on 09/12/18 21:04; Admin Dose 100 MG; Start 09/08/18 at 22:00 Ergocalciferol (Drisdol) 50,000 unit Q7D PO Last administered on 09/10/18 09:03; Admin Dose 50,000 UNIT; Start 09/10/18 at 09:00 Rivaroxaban (Xarelto) 10 mg DAILY PO Last administered on 09/13/18 09:13; Admin Dose 10 MG; Start 09/09/18 at 09:00 Nitroglycerin (Nitroglycerin (Sl Tab) 0.4 Mg) 1 tab Q5M PRN SL ANGINA Last administered on 09/10/18 23:24; Admin Dose 1 TAB; Start 09/09/18 at 18:30 Morphine Sulfate (morphine) 1 mg Q2H PRN IV SEVERE PAIN LEVEL 7-10 Last administered on 09/11/18 10:29; Admin Dose 1 MG; Start 09/10/18 at 10:00 Fluticasone/ Vilanterol (Breo Ellipta 200-25 Mcg Inh) 1 inh DAILY INH Last administered on 09/13/18 09:11; Admin Dose 1 INH; Start 09/10/18 at 10:00 Tiotropium [place] (Spiriva) 1 inh DAILY INH Last administered on 09/13/18 09:11; Admin Dose 1 INH; Start 09/10/18 at 10:00 Montelukast Sodium (Singulair) 10 mg HS PO Last administered on 09/12/18 21:05; Admin Dose 10 MG; Start 09/10/18 at 21:00 Calcitriol (Rocaltrol) 0.25 mcg BID PO Last administered on 09/13/18 09:12; Admin Dose 0.25 MCG; Start 09/10/18 at 21:00 Diagnostic Test (Pha) (Accu-Chek) 1 ea AC MEALS XX ; Start 09/10/18 at 11:30 Diagnostic Test (Pha) (Accu-Chek) 1 ea 2 HOURS AFTER MEALS XX Last administered on 09/11/18 20:05; Admin Dose 1 EA; Start 09/10/18 at 10:00 Polyethylene Glycol (Miralax) 17 gm BID PO Last administered on 09/13/18at 09:12; Admin Dose 17 GM; Start 09/10/18 at 21:00 Docusate Sodium (Colace) 250 mg BID PO Last administered on 09/13/18at 09:13; Admin Dose 250 MG; Start 09/10/18 at 21:00 Metoprolol Tartrate (Lopressor) 25 mg BID PO Last administered on 09/12/18at 21:05; Admin Dose 25 MG; Start 09/10/18 at 21:00 Acetaminophen (Tylenol Tab) 500 mg Q8 PRN PO MILD PAIN(1-3)OR ELEVATED TEMP; Start 09/11/18 at 00:30 Tramadol HCl (Ultram) 50 mg Q12 PRN PO PAIN; Start 09/11/18 at 00:30 Calcium Carbonate (Oyster Shell Calcium) 1.25 gm TID GTB ; Start 09/13/18 at 21:00; Status UNV Calcitriol (Calcitriol) 1 mcg ONCE ONCE IV ; Start 09/13/18 at 15:00; Stop 09/13/18 at 15:01; Status UNV ROBERT MACHUCA MD September 13, 2018 14:56
[2018-09-13] MEDS ORDERED: BISACODYL 10 MG SUPP PR ONE (15:00)
[2018-09-13] MEDS ORDERED: MAGNESIUM CITRATE 300 ML BTL PO ONE (15:00)
[2018-09-13] MEDS ORDERED: CALCITRIOL 1 MCG INJ IV ONE (15:00)
[2018-09-13 20:15] VITALS: BP 120/71; PULSE 63; RESP 18
[2018-09-13] MEDS: MONTELUKAST 10 MG TAB PO SCH (20:37)
[2018-09-13] MEDS: ATORVASTATIN 40 MG TAB PO SCH (20:38)
[2018-09-13] MEDS ORDERED: CALCIUM CARBONATE 1.25 GM TAB GTB SCH (21:00)
[2018-09-13] MEDS: ZOLPIDEM 5 MG TAB PO PRN (21:12)
[2018-09-13] MEDS: QUETIAPINE 100 MG TAB PO SCH (21:12)
--- NOTE | 2018-09-13 21:36 | PN ---
Date/Time of Note Date/Time of Note DATE: 09/13/18 TIME: 21:34 Assessment/Plan VTE Prophylaxis Risk score (from Ns)>0 risk: 7 SCD applied (from Ns): No SCD contraindicated: other (on.) Pharmacological prophylaxis: LMWH Lines/Catheters IV [facility]from [facility] Mid Line Central line still needed: No Urinary Cath still in place: No Reason Cath still needed: urinary retention Assessment/Plan Assessment/Plan 1. Urinary tract infection. Urinary incontinence-improving. 2, Chronic obstructive pulmonary disease exacerbation-worse comparing with yesterday. Very slow improvement. 3. Wheezing got worse 4. Anxiety depression 5. History of diabetes type 2, now better controlled. 6. Lactic acidosis- mild. 7. Hypothyroidism. Decrease the dose of levothyroxine. Previous dose was 200, came down to 150 mcg. 8. History of gastritis and gastroesophageal reflux disease. Continue Protonix. 9. Psoriasis. 10. Dyslipidemia. 11. Memory impairment. 12. Sleeplessness. 13. 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 14. Upon availability of more data, we will add to current report. 15. lbp 16.Very low mg and iron levels 17. Suspect multidrug abuse mainly sleeping pills and Tylenol 3. 18. On and off agitation dissatisfaction noncompliance to treatment. Result Diagram: 09/11/18 0554 09/13/18 0525 Results 24hrs Laboratory Tests Test 09/13/18 05:24 09/13/18 05:25 09/13/18 09:24 09/13/18 12:47 Ionized Calcium 1.0 L (Measured) Sodium Level 140 Potassium Level 3.8 Chloride Level 100 Carbon Dioxide Level 32 H Anion Gap 8 Blood Urea Nitrogen 25 H Creatinine 1.02 H Est Glomerular Filtrat Rate mL/min Glucose Level 100 Calcium Level 8.0 L Phosphorus Level 4.9 Magnesium Level 2.0 Total Bilirubin 0.3 Direct Bilirubin 0.00 Indirect Bilirubin 0.3 Aspartate Amino 15 Transf (AST/SGOT) Alanine 22 Aminotransferase (ALT/SG PT) Alkaline Phosphatase 52 Total Protein 6.0 L Albumin 3.4 Globulin 2.60 Albumin/Globulin Ratio 1.30 Bedside Glucose 143 92 Test 09/13/18 20:34 Bedside Glucose 97 Subjective 24 Hr Interval Summary Free Text/Dictation Breathing improved. Chest pain on and off. Dizziness and I am getting up. Constitutional: disoriented, poor po; No no complaints, No improved, No chills, No diaphoresis, No febrile, No requiring IVF, No requiring O2, No other Eyes: No no complaints, No pain, No discharge, No redness, No visual change, No other ENT: congestion, dysphagia; No no complaints, No bleeding, No pain, No discharge, No sore throat, No other Respiratory: cough, pleuritic pain, wheezing; No no complaints, No pain, No shortness of breath, No sputum, No other Cardiovascular: chest pain, lightheadedness, orthopenea, palpitations; No no complaints, No edema, No paroxysmal nocturnal dyspnea, No other Gastrointestinal: constipation, decreased appetite; No no complaints, No pain, No blood, No diarrhea, No flatus, No nausea, No passing stool, No vomiting, No other Genitourinary: dysuria; No no complaints, No bleeding, No discharge, No flank pain, No hematuria, No other Musculoskeletal: back pain, bone/joint pain; No no complaints, No neck pain, No restricted range of motion, No swelling, No other Skin: pruritis; No no complaints, No bruising, No erythema, No laceration, No rash, No skin lesions, No other Neurologic: dizziness; No no complaints, No confusion, No focal-weakness, No headache, No syncope, No seizure, No other Endocrine: dry skin; No no complaints, No polyuria, No polydypsia, No temp intolerance, No other Psychological: anxiety; No no complaints, No nl mood/affect, No confusion, No depression, No suicidal, No other Exam/Review of Systems Exam Vitals Vital Signs Date Temp Pulse Resp B/P (MAP) Pulse Ox O2 O2 Flow FiO2 Time Delivery Rate 09/13/18 3.0 20:47 09/13/18 98.2 63 18 120/71 92 20:15 (87) 09/13/18 Nasal 17:13 Cannula Intake and Output 09/12/18 09/12/18 09/13/18 1515:00 23:00 07:00 IntakeIntake Total 50 ml 700 ml 2200 ml BalanceBalance 50 ml 700 ml 2200 ml Constitutional: alert, oriented, well developed, distress, frail; No non-verbal, No obese, No other Psych: anxiety, depression; No no complaints, No nl mood/affect, No confusion, No suicidal, No other Head: normocephalic, atraumatic; No lacerations, No hematomas, No other Eyes: EOMI, nl lids; No nl conjunctiva, No nl sclera, No PERRL, No icteric, No fundi, disc, No other ENMT: No nl external ears & nose, No nl lips & teeth, No nl nasal mucosa & septum, No mucosa pink and moist, No intubated, No tympanic membranes, No other Neck: jvd, bruits, thyromegaly (Status post thyroidectomy.), nuchal rigidity; No supple, No non-tender, No masses, No other Respiratory: congested cough, crackles/rales, diminished breath sounds, labored breathing, wheezing; No clear to auscultation, No normal air movement, No intercostal retraction, No respirations, No tactile fremitus, No other Cardiovascular: regular rate and rhythm, nl pulses, edema, irregular rhythm; No bruits, No diastolic murmur, No gallop, No jugular venous distention (JVD), No murmurs/extra sounds, No rub, No systolic murmur, No S3, No S4, No other Gastrointestinal: soft, nl liver, spleen, bowel sounds; No non-tender, No ascites, No distended, No firm, No hepatomegaly, No mass, No rebound or guarding, No splenomegaly, No surgical scars, No tender, No other Genitourinary - Female: nl adnexae, nl external genitalia; No CMT, No CVA tenderness, No uterus, No other Musculoskeletal: No nl extremities to inspection, No nl gait and stance, No joint tenderness, No muscle tone, No muscle weakness, No range of motion, No spine non-tender, No swelling, No other Extremities: edema; No normal pulses, No calf tenderness, No cyanosis, No clubbing, No pitting pedal edema, No palpable cord, No tenderness, No other Neurological: CATALOG SPECIALIST II-XII intact, nl speech, numbness; No nl mental status, No nl strength, No confused, No DTR's symmetric, No focal weakness, No lethargic, No reflexes, No unresponsive, No other Results Results 24hrs Laboratory Tests Test 09/13/18 05:24 09/13/18 05:25 09/13/18 09:24 09/13/18 12:47 Ionized Calcium 1.0 L (Measured) Sodium Level 140 Potassium Level 3.8 Chloride Level 100 Carbon Dioxide Level 32 H Anion Gap 8 Blood Urea Nitrogen 25 H Creatinine 1.02 H Est Glomerular Filtrat Rate mL/min Glucose Level 100 Calcium Level 8.0 L Phosphorus Level 4.9 Magnesium Level 2.0 Total Bilirubin 0.3 Direct Bilirubin 0.00 Indirect Bilirubin 0.3 Aspartate Amino 15 Transf (AST/SGOT) Alanine 22 Aminotransferase (ALT/SG PT) Alkaline Phosphatase 52 Total Protein 6.0 L Albumin 3.4 Globulin 2.60 Albumin/Globulin Ratio 1.30 Bedside Glucose 143 92 Test 09/13/18 20:34 Bedside Glucose 97 Medications Medication Current Medications Zolpidem Tartrate (Ambien) 10 mg HS PRN PO INSOMNIA Last administered on 09/13/18 21:12; Admin Dose 10 MG; Start 09/08/18 at 04:00 Albuterol (Proventil 0.083% (Neb)) 1.25 mg Q6H RESP THERAPY PRN NEB WHEEZING AND SOB Last administered on 09/12/18 21:24; Admin Dose 1.25 MG; Start 09/08/18 at 22:30 Amlodipine Besylate (Norvasc) 10 mg DAILY PO Last administered on 09/13/18 09:14; Admin Dose 10 MG; Start 09/09/18 at 09:00 Aspirin (Halfprin) 81 mg DAILY PO Last administered on 09/13/18 09:12; Admin Dose 81 MG; Start 09/09/18 at 09:00 Atorvastatin Calcium (Lipitor) 40 mg QHS PO Last administered on 09/13/18 20:38; Admin Dose 40 MG; Start 09/09/18 at 21:00 Gabapentin (Neurontin) 800 mg BID PO Last administered on 09/13/18 20:37; Admin Dose 800 MG; Start 09/08/18 at 22:30 Levothyroxine Sodium (Synthroid) 125 mcg BEFORE BREAKFAST PO Last administered on 09/13/18 09:11; Admin Dose 125 MCG; Start 09/09/18 at 07:00 Pantoprazole (Protonix Tab) 40 mg AC BREAKFAST PO Last administered on 09/13/18 09:11; Admin Dose 40 MG; Start 09/09/18 at 07:30 Solifenacin (Vesicare) 10 mg DAILY PO Last administered on 09/13/18 09:12; Admin Dose 10 MG; Start 09/09/18 at 09:00 Ibuprofen (Motrin) 600 mg Q6H PRN PO PAIN 1-3 Last administered on 09/09/18 17:15; Admin Dose 600 MG; Start 09/08/18 at 22:30 Levofloxacin/ Dextrose 100 ml @ 100 mls/hr Q24H IVPB Last administered on 09/12/18 23:35; Admin Dose 100 MLS/HR; Start 09/08/18 at 23:00 Albuterol/ Ipratropium (Duoneb) 3 ml Q8H RESP THERAPY HHN Last administered on 09/13/18 17:13; Admin Dose 3 ML; Start 09/08/18 at 22:45 Albuterol/ Ipratropium (Duoneb) 3 ml Q8H RESP THERAPY PRN HHN SHORTNESS OF BREATH; Start 09/08/18 at 23:00 Quetiapine Fumarate (Seroquel) 100 mg HS PO Last administered on 09/13/18 21:12; Admin Dose 100 MG; Start 09/08/18 at 22:00 Ergocalciferol (Drisdol) 50,000 unit Q7D PO Last administered on 09/10/18 09:03; Admin Dose 50,000 UNIT; Start 09/10/18 at 09:00 Rivaroxaban (Xarelto) 10 mg DAILY PO Last administered on 09/13/18 09:13; Admin Dose 10 MG; Start 09/09/18 at 09:00 Nitroglycerin (Nitroglycerin (Sl Tab) 0.4 Mg) 1 tab Q5M PRN SL ANGINA Last administered on 09/10/18 23:24; Admin Dose 1 TAB; Start 09/09/18 at 18:30 Morphine Sulfate (morphine) 1 mg Q2H PRN IV SEVERE PAIN LEVEL 7-10 Last administered on 09/11/18 10:29; Admin Dose 1 MG; Start 09/10/18 at 10:00 Fluticasone/ Vilanterol (Breo Ellipta 200-25 Mcg Inh) 1 inh DAILY INH Last administered on 09/13/18 09:11; Admin Dose 1 INH; Start 09/10/18 at 10:00 Tiotropium [place] (Spiriva) 1 inh DAILY INH Last administered on 09/13/18 09:11; Admin Dose 1 INH; Start 09/10/18 at 10:00 Montelukast Sodium (Singulair) 10 mg HS PO Last administered on 09/13/18 20:37; Admin Dose 10 MG; Start 09/10/18 at 21:00 Calcitriol (Rocaltrol) 0.25 mcg BID PO Last administered on 09/13/18 20:37; Admin Dose 0.25 MCG; Start 09/10/18 at 21:00 Diagnostic Test (Pha) (Accu-Chek) 1 ea AC MEALS XX ; Start 09/10/18 at 11:30 Diagnostic Test (Pha) (Accu-Chek) 1 ea 2 HOURS AFTER MEALS XX Last admin istered on 09/11/18 20:05; Admin Dose 1 EA; Start 09/10/18 at 10:00 Polyethylene Glycol (Miralax) 17 gm BID PO Last administered on 09/13/18 20:37; Admin Dose 17 GM; Start 09/10/18 at 21:00 Docusate Sodium (Colace) 250 mg BID PO Last administered on 09/13/18 20:36; Admin Dose 250 MG; Start 09/10/18 at 21:00 Metoprolol Tartrate (Lopressor) 25 mg BID PO Last administered on 09/13/18 20:40; Admin Dose 25 MG; Start 09/10/18 at 21:00 Acetaminophen (Tylenol Tab) 500 mg Q8 PRN PO MILD PAIN(1-3)OR ELEVATED TEMP; Start 09/11/18 at 00:30 Tramadol HCl (Ultram) 50 mg Q12 PRN PO PAIN; Start 09/11/18 at 00:30 Calcium Carbonate (Oyster Shell Calcium) 1.25 gm TID GTB Last administered on 09/13/18 20:38; Admin Dose 1.25 GM; Start 09/13/18 at 21:00 CARMEN COLBERT MD September 13, 2018 21:36
--- NOTE | 2018-09-13 21:52 | PDOCDIS ---
Discharge Instructions DIAGNOSIS Discharge Diagnosis 1. Urinary tract infection. Urinary incontinence-improving. 2, Chronic obstructive pulmonary disease exacerbation; improved 3. Wheezing improved. 4. Anxiety depression 5. History of diabetes type 2, now better controlled. 6. Lactic acidosis- mild. 7. Hypothyroidism. Decrease the dose of levothyroxine. Previous dose was 200, came down to 150 mcg. 8. History of gastritis and gastroesophageal reflux disease. Continue Protonix. 9. Psoriasis. 10. Dyslipidemia. 11. Memory impairment. 12. Sleeplessness. 13. 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 14. Upon availability of more data, we will add to current report. 15. lbp 16.Very low mg and iron levels 17. Suspect multidrug abuse mainly sleeping pills and Tylenol 3. 18. On and off agitation dissatisfaction noncompliance to treatment. Result Diagram: CONDITION [id number] Patient Condition: [id number] Guarded HOME CARE INSTRUCTIONS: [id number] Diet Instructions: [id number] Reduced Calorie ACTIVITY: [id number] Activity Restrictions: [id number] Slowly Increase Activity [id number] Bathing Restrictions: [id number] Shower FOLLOW UP/APPOINTMENTS Follow-up Plan In [address] Ramos. In 10 days to SCHOOL/WORK RELEASE May return to School/Work with: CARMEN Orona MD September 13, 2018 21:52
--- NOTE | 2018-09-13 21:55 | DS ---
Date/Time of Note Date/Time of Note DATE: 09/13/18 TIME: 21:54 Discharge Summary Admission/Discharge Info Admit Date/Time Sep 07, 2018 at 19:38 Discharge Date/Time September at 11 AM. Discharge Diagnosis 1. Urinary tract infection. Urinary incontinence-improving. 2, Chronic obstructive pulmonary disease exacerbation; improved 3. Wheezing improved. 4. Anxiety depression 5. History of diabetes type 2, now better controlled. 6. Lactic acidosis- mild. 7. Hypothyroidism. Decrease the dose of levothyroxine. Previous dose was 200, came down to 150 mcg. 8. History of gastritis and gastroesophageal reflux disease. Continue Protonix. 9. Psoriasis. 10. Dyslipidemia. 11. Memory impairment. 12. Sleeplessness. 13. 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 14. Upon availability of more data, we will add to current report. 15. lbp 16.Very low mg and iron levels 17. Suspect multidrug abuse mainly sleeping pills and Tylenol 3. 18. On and off agitation dissatisfaction noncompliance to treatment. Result Diagram: Patient Condition: Guarded Hx of Present Illness f/c and severe sob with sleeplessness. Patient was seen in the office 2 days ago with having episodes of chills. Communication was difficult with the patient mainly information was taken from the daughter patient. It was apparent that she was feeling freezing at home no antibiotics were taken. In office laboratory work-up was taken including a UA culture sensitivity results of which are pending. Knowing her past medical history infrequent episodes of having sepsis being in ICU setting along with COPD exacerbation right being almost on 5 L of oxygen at home long period of time I recommend the patient to go to the hospital having in mind to prevent impending crisis. Daughter agreed that the patient refused they went home. Yesterday patient was brought to the emergency room when she will become difficult to tolerate and she realized fevers also coming in the emergency room was found that patient had a UTI Rocephin was started fortunately there was no bed in the hospital to be admitted shows on the corridor for emergency room which made her to be frustrated. Besides acute prob nena of UTI for which she came to the hospital patient was not very careful and sensitive to the sleeping pill issues when she was taking at least 2 3 of them to be able to sleep at 9:00 PM which definitely was unable to do at that time in the emergency room setting. Today 1 of the main complaints. He is that patient is having pain in the tongue loss of taste and it is of considerable intensity about 67/10 on a scale of 10/10 which according to her is improving after taking the Tylenol 3. Hospital Course The patient has made relatively fast recovery comparing with the previous hospitalizations. Cardiology work-up was also negative. Chest pain is most probably musculoskeletal. Plan to follow-up as an outpatient with tapering down prednisone for 20 mg for 1 week 15 mg second week 02/15-week 5 another week and then reassess according to clinical status. Home Meds Reported Medications Cholecalciferol (Vitamin D3) (Vitamin D-3) 2,000 Unit Tablet, 2000 UNIT PO DAILY, TAB 09/07/18 Gabapentin* (Gabapentin*) 800 Mg Tablet, 800 MG PO BID, #90 TAB 09/07/18 Albuterol Sulfate* (Albuterol Sulfate* Neb) 0.083%-3 Ml Neb, 1.25 MG NEB Q6H PRN for WHEEZING AND SOB, #30 VIAL 09/07/18 Albuterol/Ipratropium* (Combivent Respimat*) 20-100 Mcg/Inh - 4 Gm Aer.w.adap, 1 PUFF INHALATION QID, #1 INHALER 09/07/18 Rivaroxaban* (Xarelto*) 10 Mg Tablet, 10 MG PO DAILY, TAB 09/07/18 Solifenacin* (Vesicare*) 10 Mg Tablet, 10 MG PO DAILY, TAB 09/07/18 Metoprolol Tartrate* (Lopressor*) 25 Mg Tab, 25 MG PO BID, #60 TAB 09/07/18 Quetiapine Fumarate* (Seroquel*) 100 Mg Tablet, 100 MG PO HS, #30 TAB 09/07/18 Atorvastatin* (Atorvastatin*) 40 Mg Tablet, 40 MG PO QHS, #30 TAB 09/07/18 Pantoprazole* (Pantoprazole*) 40 Mg Tablet.dr, 40 MG PO AC BREAKFAST, TAB 09/07/18 Isosorbide Mononitrate* (Isosorbide Mononitrate*) 30 Mg Tab.er.24h, 30 MG PO DAILY, TAB 09/07/18 Zolpidem Tartrate* (Zolpidem Tartrate*) 10 Mg Tablet, 10 MG PO QHS PRN for INSOMNIA, #30 TAB 09/07/18 Aspirin* (Aspirin* EC) 81 Mg Tablet.dr, 81 MG PO DAILY, TAB 09/07/18 Amlodipine Besylate* (Amlodipine Besylate*) 10 Mg Tablet, 10 MG PO DAILY, #30 TAB 09/07/18 Ibuprofen* (Ibuprofen*) 600 Mg Tablet, 600 MG PO NEEDED, TAB 09/07/18 Levothyroxine Sodium* (Synthroid*) 125 Mcg Tablet, 125 MCG PO BEFORE BREAKFAST, #30 TAB 09/07/18 Acetaminophen with Codeine (Acetaminophen-Cod #3 Tablet) 1 Each Tablet, 1 TAB PO NEEDED, #20 TAB 09/07/18 Ergocalciferol (Vitamin D2) (VITAMIN D2) 50,000 Unit Capsule, 80332 UNIT PO Q7D, CAP 09/07/18 Ferrous Sulfate* (Ferrous Sulfate*) 325 Mg Tabec, 325 MG PO DAILY, TAB 09/07/18 Discontinued Reported Medications Pregabalin* (Lyrica*) 75 Mg Capsule, 75 MG PO DAILY, CAP 06/08/16 Ibuprofen* (Motrin*) 600 Mg Tab, 600 MG PO TID, TAB 06/08/16 Levothyroxine Sodium* (Levoxyl*) 125 Mcg Tablet, 125 MCG PO BEFORE BREAKFAST, #30 TAB 06/08/16 Cholecalciferol* (Vitamin D3*) 2,000 Unit Cap, 2000 UNIT PO DAILY, CAP 12/09/15 Edoxaban Tosylate (Savaysa) 30 Mg Tablet, 30 MG PO DAILY, TAB 12/09/15 Albuterol/Ipratropium* (Combivent Respimat*) 20-100 Mcg/Inh - 4 Gm Aer.w.adap, 1 PUFF INHALATION QID, #1 INHALER 12/09/15 Amlodipine Besylate* (Amlodipine Besylate*) 10 Mg Tablet, 10 MG PO DAILY, TAB 11/19/14 Diazepam* (Diazepam*) 5 Mg Tablet, 5 MG PO BID PRN for INSOMNIA, TAB 11/19/14 Zolpidem Tartrate* (Zolpidem Tartrate*) 10 Mg Tablet, 10 MG PO HS PRN for INSOMNIA, TAB 11/19/14 Quetiapine Fumarate* (Quetiapine Fumarate*) 100 Mg Tablet, 100 MG PO HS, TAB 11/19/14 Metoprolol Tartrate* (Lopressor*) 25 Mg Tab, 25 MG PO BID, TAB 11/19/14 Pantoprazole* (Pantoprazole*) 40 Mg Tablet.dr, 40 MG PO AC BREAKFAST, TAB 11/19/14 Nitroglycerin* (Nitroglycerin* SL) 0.4 Mg Tab.subl, 0.4 MG SL Q5MIN PRN for CHEST PAIN, BOTTLE 11/19/14 Isosorbide Dinitrate* (Isosorbide Dinitrate*) 30 Mg Tablet, 30 MG PO DAILY, TAB 08/16/14 Acetaminophen-Codeine* (Acetaminophen-Cod #3*) 300-30 Mg Tab, 1 TAB PO Q8 PRN for PAIN, TAB 06/24/14 Gabapentin* (Neurontin*) 800 Mg Tablet, 800 MG PO QID, TAB 06/24/14 Aspirin* (Aspirin* (EC)) 81 Mg Tablet.dr, 81 MG PO DAILY, TAB 06/24/14 Discontinued Scripts Albuterol Sulfate* (Proair HFA*) 8.5 Gm Hfa.aer.ad, 2 PUFF INH Q6, #1 INHALER Prov:PEYMAN MARINO MD 06/12/16 Follow-up Plan In [address] Colbert. In 10 days to Primary Care Provider Rosibel Colbert MD Time spent on discharge: > 30 minutes Pending Labs Laboratory Tests Test 09/13/18 05:24 09/13/18 05:25 09/13/18 09:24 09/13/18 12:47 Ionized Calcium 1.0 (Measured) mmol/L (1.1-1.4 ) Sodium Level 140 mmol/L (135-14 4) Potassium 3.8 Level mmol/L (3.5-5. 1) Chloride Level 100 mmol/L (97-110 ) Carbon Dioxide 32 Level mmol/L (21-31) Anion Gap 8 (5-13) Blood Urea 25 Nitrogen mg/dl (7-20) Creatinine 1.02 mg/dl (0.44-1. 00) Est Glomerular mL/min (>60) Filtrat Rate mL/min Glucose Level 100 mg/dl (70-220) Calcium Level 8.0 mg/dl (8.4-10. 2) Phosphorus 4.9 Level mg/dl (2.5-4.9 ) Magnesium 2.0 Level mg/dl (1.7-2.5 ) Total 0.3 Bilirubin mg/dl (0.2-1.3 ) Direct 0.00 Bilirubin mg/dl (0.00-0. 20) Indirect 0.3 Bilirubin mg/dl (0-1.1) Aspartate Amino 15 Transf (AST/SGO IU/L (15-46) T) Alanine 22 Aminotransferas IU/L (13-69) e (ALT/SGPT) Alkaline 52 Phosphatase IU/L (42-121) Total Protein 6.0 g/dl (6.1-8.1) Albumin 3.4 g/dl (3.3-4.9) Globulin 2.60 g/dl (1.3-3.2) Albumin/Globuli 1.30 n Ratio Bedside 143 92 Glucose mg/dL (70-220) mg/dL (70-220) Test 09/13/18 20:34 Bedside 97 Glucose mg/dL (70-220) ROSIBEL COLBERT MD September 13, 2018 21:55
[2018-09-13] MEDS: LEVOFLOXACIN 500MG/D5W (PMX) 100 ML IVPB SCH (23:16)
[2018-09-14] MEDS: ALBUTEROL/IPRATROPIUM (NEB) 3 ML AMP HHN SCH ×2 (00:28→08:42)
[2018-09-14 02:15] VITALS: BP 90/53; PULSE 78; RESP 18
[2018-09-14 03:30] VITALS: BP 104/60
[2018-09-14 07:30] VITALS: BP 112/67; PULSE 59; RESP 18
[2018-09-14] MEDS: ACCU-CHEK XX SCH ×3 (08:11→12:09)
[2018-09-14] MEDS: LEVOTHYROXINE 125 MCG TAB PO SCH (08:32)
[2018-09-14] MEDS: PANTOPRAZOLE (EC) 40 MG TAB PO SCH (08:33)
[2018-09-14] MEDS: POLYETHYLENE GLYCOL 17 GM PACKET PO SCH (08:56)
[2018-09-14] MEDS: FLUTICASONE/VILANTEROL 200-25 INH DEVICE INH SCH (08:56)
[2018-09-14] MEDS: CALCITRIOL 0.25 MCG CAP PO SCH (08:57)
[2018-09-14] MEDS: TIOTROPIUM 18 MCG CAPSULE INHA DEV INH SCH (08:57)
[2018-09-14] MEDS: GABAPENTIN 400 MG CAP PO SCH (08:57)
[2018-09-14] MEDS: AMLODIPINE 10 MG TAB PO SCH (08:58)
[2018-09-14] MEDS: SOLIFENACIN 5 MG TAB PO SCH (08:58)
[2018-09-14] MEDS: CALCIUM CARBONATE 1.25 GM TAB PO SCH ×2 (08:58→12:14)
[2018-09-14] MEDS: DOCUSATE SODIUM 250 MG CAP PO SCH (08:58)
[2018-09-14] MEDS: RIVAROXABAN 10 MG TABLET PO SCH (08:58)
[2018-09-14] MEDS: ASPIRIN (EC) 81 MG TAB PO SCH (08:59)
[2018-09-14] MEDS: METOPROLOL 25 MG TAB PO SCH (08:59)
[2018-09-14] MEDS: LEVOFLOXACIN 500MG/D5W (PMX) 100 ML IVPB SCH (09:49)
== END 2018-09-14 12:20 | disposition home or self-care (01) | DRG 191 ==
LOC: E/R 17:52 → PP2 19:38 → EDBEDREQSVC 09-08 06:29
PROVIDERS: ADMIT Family Medicine; ATTEND Family Medicine
DX: J44.1 Chronic obstructive pulmonary disease with (acute) exacerbation (principal); N39.0 Urinary tract infection, site not specified; E87.2 Acidosis; J96.10 Chronic respiratory failure, unspecified whether with hypoxia or hypercapnia; E83.51 Hypocalcemia; E83.42 Hypomagnesemia; R32 Unspecified urinary incontinence; E11.9 Type 2 diabetes mellitus without complications; E03.9 Hypothyroidism, unspecified; K21.9 Gastro-esophageal reflux disease without esophagitis; L40.9 Psoriasis, unspecified; K14.6 Glossodynia; K59.00 Constipation, unspecified; Z91.19 Patient's noncompliance with other medical treatment and regimen; R43.9 Unspecified disturbances of smell and taste; F19.10 Other psychoactive substance abuse, uncomplicated; E89.2 Postprocedural hypoparathyroidism; Z87.891 Personal history of nicotine dependence
CPT/HCPCS: 36415; 71045; 78452; 80048; 80053; 81001; 82330; 82962; 83540; 83690; 83735; 83880; 84100; 84443; 84484; 85025; 86850; 86900; 86901; 87081; 87086; 87400; 93005; 93017; 93306; 94640; 94644; 94664; 96374; A9500; A9505; J0696; J1956; J2060; J2270; J2785; J2920; J2930; J3475; J7040; J7050